=== PATIENT | male | born 1955 | race Hispanic/Latino ===

== ENCOUNTER 2017-09-22 04:19 | Emergency (ER) | payer OTHER ==
[2017-09-22 04:20] VITALS: BMI 20.7
[2017-09-22 05:07] LABS: BASO # 0.1 K/uL (0.0-0.2); BASO % 1.1 % (0.0-2.0); EOS # 0.2 K/uL (0.0-0.7); EOS % 3.7 % (0.0-4.0); HEMOGLOBIN 11.4 g/dL (12.0-18.0); LYMPH # 1.9 K/uL (1.0-4.3); LYMPH % 38.8 % (20.0-40.0); MEAN CORPUSCULAR HEMOGLOBIN 33.9 pg (27.0-31.0); MEAN CORPUSCULAR HGB CONC 34.6 g/dL (33.0-37.0); MEAN PLATELET VOLUME 8.4 fL (7.2-11.7); MONO # 0.8 K/uL (0.0-0.8); MONO % 16.5 % (0.0-10.0); NEUT % 39.9 % (50.0-75.0); RBC 3.37 Mil/uL (4.40-5.90); RED CELL DISTRIBUTION WIDTH 13.3 % (11.5-14.5); WHITE BLOOD COUNT 4.9 K/uL (4.8-10.8)
[2017-09-22 05:19] LABS: ALB/GLOB RATIO 1.1 (1.0-2.1); ALBUMIN 3.5 g/dL (3.5-5.0); ALT/SGPT 35 U/L (21-72); AST/SGOT 46 U/L (17-59); BLOOD UREA NITROGEN 10 mg/dL (9-20); CALCIUM 7.8 mg/dl (8.6-10.4); GFR AFRICAN-AMERICAN > 60; GFR NON-AFRICAN AMERICAN > 60; MAGNESIUM 1.7 mg/dL (1.6-2.3)
[2017-09-22 05:24] LABS: URINE BILIRUBIN NEGATIVE (NEGATIVE); URINE BLOOD NEGATIVE (NEGATIVE); URINE CLARITY Clear (Clear); URINE COLOR Straw (YELLOW); URINE GLUCOSE (UA) NORMAL (Normal); URINE LEUKOCYTE ESTERASE NEG Leu/uL (Negative); URINE NITRATE NEGATIVE (NEGATIVE); URINE PROTEIN NEGATIVE (NEGATIVE); URINE UROBILINOGEN NORMAL mg/dL (0.2-1.0)
[2017-09-22 05:39] LABS: BARBITURATES, UR NEGATIVE (NEGATIVE); BENZODIAZEPINES, UR NEGATIVE (NEGATIVE); OPIATES, UR NEGATIVE (NEGATIVE); PHENCYCLIDINE, UR NEGATIVE (NEGATIVE)
--- NOTE | 2017-09-22 06:18 | C.PDOC ---
History Of Present Illness <Luna Castro - Last Filed: 09/22/17 13:19> <Sydnee Null - Last Filed: 09/22/17 19:12> 61 years old patient presents to ED with complaints of having leg cramps. Pt states as he was mopping his home floor his legs started to cramp. Admits to drinking 5 beers today. Pt states he has been using a walker for about 7 months. Denies any other physical complaints. (Sydnee Null) <Luna Castro - Last Filed: 09/22/17 13:19> History Per: Patient History/Exam Limitations: no limitations Onset/Duration Of Symptoms: Hrs Current Symptoms Are (Timing): Still Present Suicide/Self Injury Attempted (Context): None Modifying Factor(s): Alcohol Associated Symptoms: denies: Anger, Agitation, Suicidal Thoughts, Suicidal Plan Involuntary Hold By: None Recent travel outside of the [place]: No <Sydnee Null - Last Filed: 09/22/17 19:12> Chief Complaint (Nursing): Lower Extremity Problem/Injury Past Medical History Reviewed: Historical Data, Nursing Documentation, Vital Signs - Medical History PMH: HTN Family History: States: Unknown Family Hx - Social History Hx Tobacco Use: No Hx Alcohol Use: Yes Hx Substance Use: No - Immunization History Hx Tetanus Toxoid Vaccination: Yes Hx Influenza Vaccination: Yes Hx Pneumococcal Vaccination: Yes <Sydnee Null - Last Filed: 09/22/17 19:12> Vital Signs: Last Vital Signs Temp 98.9 F 09/22/17 13:55 Pulse 67 09/22/17 13:55 Resp 18 09/22/17 13:55 BP 134/76 09/22/17 13:55 Pulse Ox 97 09/22/17 13:55 - [facility] Procedures COLONOSCOPY (04/03/15) ESOPHAGOGASTRODUODENOSCOPY [EGD] W/CLOSED BIOPSY (04/03/15) PACKED CELL TRANSFUSION (04/03/15) VACCINATION NEC (05/08/15) Review Of Systems Constitutional: Negative for: Fever Musculoskeletal: Positive for: Other (Leg cramping bilaterally) Neurological: Negative for: Weakness, Numbness Psych: Negative for: Suicidal ideation <Sydnee Null - Last Filed: 09/22/17 19:12> Physical Exam - Physical Exam Appears: Well, Non-toxic, Other (Slurred speech ) Skin: Warm, Dry, Other (No Organomegaly) Head: Atraumatic, Normacephalic Eye(s): bilateral: Normal Inspection Oral Mucosa: Dry Throat: No Erythema, No Exudate Neck: Supple Chest: Symmetrical, No Tenderness Cardiovascular: Rhythm Regular Respiratory: No Decreased Breath Sounds, No Accessory Muscle Use, No Rales, No Rhonchi, No Stridor, No Wheezing Gastrointestinal/Abdominal: Soft, No Tenderness Extremity: Normal ROM, No Tenderness, No Pedal Edema, No Swelling Extremity: Bilateral: Normal Color And Temperature, Normal ROM Pulses: Left Dorsalis Pedis: Normal, Right Dorsalis Pedis: Normal Neurological/Psych: Normal Cognition <Sydnee Null - Last Filed: 09/22/17 19:12> ED Course And Treatment - Laboratory Results Result Diagrams: 09/22/17 05:04 09/22/17 05:04 <Luna Castro - Last Filed: 09/22/17 13:19> - Laboratory Results Result Diagrams: 09/22/17 05:04 09/22/17 05:04 O2 Sat by Pulse Oximetry: 97 (RA) Pulse Ox Interpretation: Normal <Sydnee Null - Last Filed: 09/22/17 19:12> Progress <Luna Castro - Last Filed: 09/22/17 13:19> <Sydnee Null - Last Filed: 09/22/17 19:12> - Re-Evaluation Re-evaluation Note: 09/22/17 07:00 S/O FROM DR NULL PENDING SOBRIETY. 09/22/17 13:20 EATING WO DIFF. PT W CLEAR SPEECH AND THOUGHT, STEADY GAIT. AO3. NO S/S ACUTE INTOX. PT MED CLEAR FOR DC. (Luna Castro) Medical Decision Making <Luna Castro - Last Filed: 09/22/17 13:19> <Sydnee Null - Last Filed: 09/22/17 19:12> Medical Decision Making: Patient experiencing neuropathic pain from alcohol. (Sydnee Null) Disposition Counseled Patient/Family Regarding: Studies Performed, Diagnosis - Disposition Disposition Time: 13:20 <Luna Castro - Last Filed: 09/22/17 13:19> <Sydnee Null - Last Filed: 09/22/17 19:12> - Disposition Referrals: YOUR,PMD [Other] Disposition: HOME/ ROUTINE Condition: IMPROVED Instructions: Peripheral Neuropathy (ED), Alcohol Dependence (ED) Forms: [employer] (Japanese) Print Language: SALVADOREAN - Clinical Impression Clinical Impression: ETOH abuse, Paresthesia <Luna Castro - Last Filed: 09/22/17 13:19> - Scribe Statement The provider has reviewed the documentation as recorded by the Scribe <Sydnee Null - Last Filed: 09/22/17 19:12> - Scribe Statement Dwayne Huynh All medical record entries made by the Scribe were at my direction and personally dictated by me. I have reviewed the chart and agree that the record accurately reflects my personal performance of the history, physical exam, medical decision making, and the department course for this patient. I have also personally directed, reviewed, and agree with the discharge instructions and disposition. (Sydnee Null)
[2017-09-22 14:00] VITALS: BP 134/76; PULSE 67; RESP 18; TEMP 98.9; O2SAT 97
== END 2017-09-22 15:03 | disposition home or self-care (01) ==
LOC: C.ER 04:19
DX: F10.10 Alcohol abuse, uncomplicated (principal); R20.9 Unspecified disturbances of skin sensation; I10 Essential (primary) hypertension
CPT/HCPCS: 80053; 81001; 83735; 85025; 99285; G0480

== ENCOUNTER 2017-12-11 08:43 | Emergency (ER) | payer OTHER ==
[2017-12-11 08:44] VITALS: BMI 20.7
[2017-12-11 08:47] VITALS: RESP 18
--- NOTE | 2017-12-11 09:30 | C.PDOC ---
History Of Present Illness 62 y/o male brought to ED by EMS s/p fall at 2 am this morning with complaints of injury to left leg and arm. Patient states he got up from bed and was going to bathroom when "legs gave out" and sustained injury. Patient states last time this happened was 15 months ago and uses cane/walker for assistance at baseline. Patient was diagnosed with restless legs and is on medication, states he gets periodic spasms to back of right leg but denies spasm at time of injury. Patient states "I am feeling fine" and denies any other complaints at this time. Time Seen by Provider: 12/11/17 08:47 Chief Complaint (Nursing): Lower Extremity Problem/Injury History Per: Patient, EMS History/Exam Limitations: no limitations Onset/Duration Of Symptoms: Hrs Current Symptoms Are (Timing): Still Present Past Medical History Reviewed: Historical Data, Nursing Documentation, Vital Signs Vital Signs: Last Vital Signs Temp 98.2 F 12/11/17 13:17 Pulse 73 12/11/17 13:17 Resp 18 12/11/17 13:17 BP 125/79 12/11/17 13:17 Pulse Ox 99 12/11/17 13:17 - Medical History PMH: HTN Surgical History: No Surg Hx - [facility] Procedures COLONOSCOPY (04/03/15) ESOPHAGOGASTRODUODENOSCOPY [EGD] W/CLOSED BIOPSY (04/03/15) PACKED CELL TRANSFUSION (04/03/15) VACCINATION NEC (05/08/15) Family History: States: No Known Family Hx - Social History Hx Tobacco Use: No Hx Alcohol Use: Yes Hx Substance Use: No - Immunization History Hx Tetanus Toxoid Vaccination: Yes Hx Influenza Vaccination: Yes Hx Pneumococcal Vaccination: Yes Review Of Systems Constitutional: Negative for: Fever, Chills Eyes: Negative for: Vision Change Cardiovascular: Negative for: Chest Pain Respiratory: Negative for: Shortness of Breath Gastrointestinal: Negative for: Nausea, Vomiting Musculoskeletal: Positive for: Leg Pain Skin: Positive for: Bruising. Negative for: Rash Neurological: Negative for: Weakness, Numbness Physical Exam - Physical Exam Appears: Non-toxic, No Acute Distress Skin: Warm, Dry, No Rash, Ecchymosis (multiple areas on left knee, left elbow and left wrist) Head: Atraumatic, Normacephalic Eye(s): bilateral: PERRL, EOMI Oral Mucosa: Moist Neck: Normal ROM, Supple Cardiovascular: Rhythm Regular Respiratory: Normal Breath Sounds, No Rales, No Rhonchi, No Wheezing Gastrointestinal/Abdominal: Soft, No Tenderness, No Guarding, No Rebound Extremity: Capillary Refill (<2 seconds), No Deformity, Other (Abrasion noted to left lateral malleolus) Extremity: Bilateral: Normal ROM Pulses: Left Dorsalis Pedis: Normal, Right Dorsalis Pedis: Normal Neurological/Psych: Oriented x3, Normal Motor, Normal Sensation, Other (No focal deficits) Gait: With Assistance ED Course And Treatment - Laboratory Results Result Diagrams: 12/11/17 10:41 12/11/17 10:41 ECG: Interpreted By Me, Viewed By Me ECG Rhythm: Sinus Rhythm ECG Interpretation: Normal Rate From EC (BPM ) O2 Sat by Pulse Oximetry: 99 (RA) Pulse Ox Interpretation: Normal - Other Rad Left ankle X-Ray: Viewed By Me, Read By Radiologist Interpretation: IMPRESSION: No demonstrated fracture or dislocation. Progress - Re-Evaluation Re-evaluation Note: 12/11/17 14:07 AMBUL WO DIFF W CANE/WALKER D/W DR JACKSON AWARE OF ER FINDINGS WILL FU OFFICE - Data Reviewed Data Reviewed: Lab, Diagnostic imaging, Old records Medical Decision Making Medical Decision Making: Prior records reviewed: Patient seen at ED on 09/2017 for same symptoms. Patient has history of ETOH use Progress: Left wrist, Left ankle, Left Knee and Pelvis xray viewed by me no fracture or dislocation noted. Disposition Counseled Patient/Family Regarding: Studies Performed, Diagnosis, Need For Followup - Disposition Referrals: Paul Jackson MD [Staff Provider] - Disposition: HOME/ ROUTINE Disposition Time: 14:08 Condition: IMPROVED Instructions: Alcohol Abuse and Alcoholism (DC), Contusion (DC) Forms: [employer] (Albanian) - Clinical Impression Clinical Impression: Alcohol intoxication, Multiple contusions - Scribe Statement The provider has reviewed the documentation as recorded by the Chataibquincy Steele All medical record entries made by the Scribe were at my direction and personally dictated by me. I have reviewed the chart and agree that the record accurately reflects my personal performance of the history, physical exam, medical decision making, and the department course for this patient. I have also personally directed, reviewed, and agree with the discharge instructions and disposition.
--- NOTE | 2017-12-11 10:00 | RAD ---
PROCEDURE: Left Ankle Radiographs. HISTORY: TRAUMA COMPARISON: None FINDINGS: BONES: Osteopenia. No acute fracture. JOINTS: Degenerative changes. Ankle mortise maintained. Talar dome intact SOFT TISSUES: Normal. OTHER FINDINGS: None. IMPRESSION: No demonstrated fracture or dislocation.
--- NOTE | 2017-12-11 10:20 | RAD ---
PROCEDURE: Radiographs of the pelvis. HISTORY: TRAUMA COMPARISON: None. FINDINGS: BONES: Pelvic Bones: No acute fracture. Hips: Degenerative changes. JOINTS: Sacroiliac Joints: Unremarkable. Pubic Symphysis: Unremarkable. OTHER FINDINGS: None. IMPRESSION: No demonstrated acute fracture or dislocation.
--- NOTE | 2017-12-11 10:20 | RAD ---
PROCEDURE: Left Knee Radiographs. HISTORY: Pain. COMPARISON: None. FINDINGS: BONES: No acute fracture. JOINTS: Mild tricompartmental narrowing. JOINT EFFUSION: None. OTHER FINDINGS: None. IMPRESSION: No demonstrated fracture or dislocation. Mild degenerative changes.
--- NOTE | 2017-12-11 10:21 | RAD ---
PROCEDURE: Radiographs of the left elbow. HISTORY: TRAUMA COMPARISON: No prior. FINDINGS: BONES: No acute fracture. JOINTS: Degenerative changes. SOFT TISSUES: Normal. JOINT EFFUSION: None. OTHER FINDINGS: None IMPRESSION: No demonstrated fracture or dislocation.
--- NOTE | 2017-12-11 10:21 | RAD ---
PROCEDURE: Left Wrist Radiographs. HISTORY: TRAUMA COMPARISON: None. FINDINGS: BONES: No acute fracture. JOINTS: Degenerative changes. SOFT TISSUES: Normal. OTHER FINDINGS: None. IMPRESSION: No demonstrated fracture or dislocation. Degenerative changes.
--- NOTE | 2017-12-11 10:22 | RAD ---
PROCEDURE: CHEST RADIOGRAPH, 1 VIEW HISTORY: FALL COMPARISON: Chest radiograph dated 05/24/2015. FINDINGS: LUNGS: Clear. PLEURA: No pneumothorax or pleural fluid seen. CARDIOVASCULAR: Normal. OSSEOUS STRUCTURES: Old left humeral fracture. Unchanged. VISUALIZED UPPER ABDOMEN: Normal. OTHER FINDINGS: None. IMPRESSION: No active disease.
[2017-12-11 10:49] LABS: URINE BILIRUBIN NEGATIVE (NEGATIVE); URINE BLOOD NEGATIVE (NEGATIVE); URINE CLARITY Clear (Clear); URINE COLOR Straw (YELLOW); URINE GLUCOSE (UA) NORMAL (Normal); URINE LEUKOCYTE ESTERASE NEG Leu/uL (Negative); URINE PROTEIN NEGATIVE (NEGATIVE); URINE UROBILINOGEN NORMAL mg/dL (0.2-1.0)
[2017-12-11 11:11] LABS: MEAN CELL VOLUME 99.7 fL (80.0-94.0); MEAN CORPUSCULAR HEMOGLOBIN 34.5 pg (27.0-31.0); MEAN CORPUSCULAR HGB CONC 34.6 g/dL (33.0-37.0); MEAN PLATELET VOLUME 8.3 fL (7.2-11.7); RBC 3.2 Mil/uL (4.40-5.90)
[2017-12-11 11:21] LABS: BLOOD UREA NITROGEN 6 mg/dL (9-20); CALCIUM 8.4 mg/dl (8.6-10.4); GFR AFRICAN-AMERICAN > 60; GFR NON-AFRICAN AMERICAN > 60
--- NOTE | 2017-12-11 11:34 | CT ---
PROCEDURE: CT HEAD WITHOUT CONTRAST. HISTORY: FALL COMPARISON: CT head dated 04/03/2015. TECHNIQUE: Axial computed tomography images were obtained through the head/brain without intravenous contrast. Radiation dose: Total exam DLP = 878.4 mGy-cm. This CT exam was performed using one or more of the following dose reduction techniques: Automated exposure control, adjustment of the mA and/or kV according to patient size, and/or use of iterative reconstruction technique. FINDINGS: HEMORRHAGE: No intracranial hemorrhage. BRAIN: No mass effect or edema. Cerebral and cerebellar atrophy. Mild chronic microvascular ischemic changes. Old bilateral basal ganglia lacunar infarctions. VENTRICLES: Prominent. No hydrocephalus. CALVARIUM: Unremarkable. PARANASAL SINUSES: Unremarkable as visualized. No significant inflammatory changes. MASTOID AIR CELLS: Unremarkable as visualized. No inflammatory changes. OTHER FINDINGS: None. IMPRESSION: No acute intracranial pathology.
[2017-12-11 11:35] LABS: EOS # 0.1 K/uL (0.0-0.7); MONO # 0.7 K/uL (0.0-0.8); NEUT # 2.1 K/uL (1.8-7.0)
[2017-12-11 11:36] LABS: BASO # 0.1 K/uL (0.0-0.2)
[2017-12-11 17:14] VITALS: BP 128/68; PULSE 67; TEMP 98.4; O2SAT 97
--- NOTE | 2017-12-13 08:05 | CARD ---
APPROVED REPORT EKG Measurement Heart [id number] <Conclusion> Normal sinus rhythm Septal infarct, age undetermined Inferior infarct, age undetermined Prolonged QT Abnormal ECG
== END 2017-12-11 17:14 | disposition home or self-care (01) ==
LOC: C.ER 08:43
DX: S80.02XA Contusion of left knee, initial encounter (principal); S50.02XA Contusion of left elbow, initial encounter; S60.212A Contusion of left wrist, initial encounter; W01.0XXA Fall on same level from slipping, tripping and stumbling without subsequent striking against object, initial encounter; Y92.008 Other place in unspecified non-institutional (private) residence as the place of occurrence of the external cause; F10.129 Alcohol abuse with intoxication, unspecified; Y90.8 Blood alcohol level of 240 mg/100 ml or more
CPT/HCPCS: 70450; 71045; 72170; 73080; 73110; 73562; 73610; 80048; 81001; 84484; 85025; 99285; G0480

== ENCOUNTER 2017-12-20 11:15 | Inpatient (IN) | payer OTHER ==
[2017-12-20 11:26] VITALS: BMI 26.6
--- NOTE | 2017-12-20 12:42 | C.PDOC ---
History Of Present Illness 62-year-old male, presents to the emergency department with complaints of left hip pain s/p mechanical fall yesterday. Patient states he was dancing at the [employer] with his friends, when he fell and sustained injury to left hip. Pain worsens with movement and palpation. Denies any other complaints. No head injury, loss of consciousness or neck pain. Time Seen by Provider: 12/20/17 11:29 Chief Complaint (Nursing): Hip Pain History Per: Patient History/Exam Limitations: no limitations Past Medical History Reviewed: Historical Data, Nursing Documentation, Vital Signs Vital Signs: Last Vital Signs Temp 98.2 F 12/23/17 18:00 Pulse 84 12/23/17 15:20 Resp 20 12/23/17 15:20 BP 123/76 12/23/17 15:20 Pulse Ox 97 12/23/17 15:20 - Medical History PMH: HTN Denies: Chronic Kidney Disease - [facility] Procedures COLONOSCOPY (04/03/15) ESOPHAGOGASTRODUODENOSCOPY [EGD] W/CLOSED BIOPSY (04/03/15) PACKED CELL TRANSFUSION (04/03/15) VACCINATION NEC (05/08/15) Family History: States: No Known Family Hx - Social History Hx Tobacco Use: No Hx Alcohol Use: Yes Hx Substance Use: No - Immunization History Hx Tetanus Toxoid Vaccination: Yes Hx Influenza Vaccination: Yes Hx Pneumococcal Vaccination: Yes Review Of Systems Musculoskeletal: Positive for: Other (Left hip pain) Neurological: Negative for: Weakness, Numbness, Headache, Dizziness Physical Exam - Physical Exam Appears: Non-toxic, No Acute Distress Skin: Warm, Dry, No Rash Head: Atraumatic, Normacephalic Eye(s): bilateral: PERRL Oral Mucosa: Moist Lips: Normal Appearing Neck: Normal ROM, No Midline Cervical Tenderness, No Paracervical Tenderness, Supple Chest: Symmetrical, No Tenderness Cardiovascular: Rhythm Regular, No Murmur Respiratory: Normal Breath Sounds, No Accessory Muscle Use Gastrointestinal/Abdominal: Bowel Sounds (active), Soft, No Tenderness Back: No CVA Tenderness, No Vertebral Tenderness, No Paraspinal Tenderness Extremity: Tenderness, Capillary Refill (<2 seconds), No Swelling, Other (Left hip: tenderness to palpation. limited range of motion secondary to pain. ) Pulses: Left Femoral: Normal, Right Femoral: Normal, Left Dorsalis Pedis: Normal , Right Dorsalis Pedis: Normal Neurological/Psych: Oriented x3, Normal Speech, Normal Motor, Normal Sensation Gait: Unable To Assess ED Course And Treatment - Laboratory Results Result Diagrams: 12/23/17 07:24 12/23/17 07:24 O2 Sat by Pulse Oximetry: 100 (RA) Pulse Ox Interpretation: Normal Medical Decision Making Medical Decision Makin:[address] Velasquez; he is requests ortho wire communications engineer for evaluation and recommends admission to Dr Khan's service. The case was discussed with Dr. Durham who will be Ortho Consult on the patient, requesting CT scan order. Also requesting MRI of the lower ext. Disposition - Disposition Disposition: HOSPITALIZED Disposition Time: 13:44 Condition: STABLE - Clinical Impression Clinical Impression: Hip fracture - Scribe Statement The provider has reviewed the documentation as recorded by the Scribe (Andrzej Arroyo) All medical record entries made by the Scribe were at my direction and personally dictated by me. I have reviewed the chart and agree that the record accurately reflects my personal performance of the history, physical exam, medical decision making, and the department course for this patient. I have also personally directed, reviewed, and agree with the discharge instructions and disposition.
[2017-12-20] MEDS ORDERED: Morphine 4 MG/ML VIAL ONE (12:57)
--- NOTE | 2017-12-20 13:05 | RAD ---
PROCEDURE: Left Femur Radiographs. HISTORY: leg injury COMPARISON: None. TECHNIQUE: AP and Lateral Radiographs of the left femur. FINDINGS: FEMUR: There is an acute impacted transcervical fracture. Bone alignment is normal. There is mild diffuse bone demineralization. SOFT TISSUES: Normal. OTHER FINDINGS: None. IMPRESSION: Acute impacted transcervical fracture in the left femur.
--- NOTE | 2017-12-20 13:06 | RAD ---
PROCEDURE: Left Hip X-ray Radiographs. HISTORY: hip injury COMPARISON: None. FINDINGS: BONES: The pelvic ring is intact. There is an acute impacted transcervical fracture in the left femur. Bone alignment is normal. There is diffuse bone demineralization. JOINTS: Normal. SOFT TISSUES: Normal. OTHER FINDINGS: None. IMPRESSION: Acute impacted transcervical fracture in the left femur.
--- NOTE | 2017-12-20 13:49 | RAD ---
PROCEDURE: CHEST RADIOGRAPH, 1 VIEW HISTORY: pre op COMPARISON: Chest radiograph dated 12/11/2017. FINDINGS: LUNGS: 9 mm left upper lobe nodule, present on the prior exam, but not present on preceding chest radiograph dated 05/24/2015. PLEURA: No pneumothorax or pleural fluid seen. CARDIOVASCULAR: Normal. OSSEOUS STRUCTURES: Old posterior right 6th rib fracture. Unchanged. VISUALIZED UPPER ABDOMEN: Normal. OTHER FINDINGS: None. IMPRESSION: 9 mm left upper lobe nodule, present on the prior exam, but not present on preceding chest radiograph dated 05/24/2015. CT scan of the chest is recommended for further evaluation. No focal consolidation or pleural effusion.
[2017-12-20 15:08] LABS: BASO # 0.1 K/uL (0.0-0.2); BASO % 0.9 % (0.0-2.0); LYMPH % 17.5 % (20.0-40.0); MEAN CELL VOLUME 99.7 fL (80.0-94.0); MEAN CORPUSCULAR HEMOGLOBIN 34.7 pg (27.0-31.0); MEAN CORPUSCULAR HGB CONC 34.8 g/dL (33.0-37.0); MONO # 0.8 K/uL (0.0-0.8); MONO % 14.3 % (0.0-10.0); NEUT % 67.3 % (50.0-75.0); NRBC % 0.1 % (0.0-2.0); RBC 3.17 Mil/uL (4.40-5.90); RED CELL DISTRIBUTION WIDTH 14.5 % (11.5-14.5); WHITE BLOOD COUNT 5.9 K/uL (4.8-10.8)
[2017-12-20 15:10] LABS: ALBUMIN 3.7 g/dL (3.5-5.0); ALT/SGPT 47 U/L (21-72); AST/SGOT 82 U/L (17-59); BLOOD UREA NITROGEN 9 mg/dL (9-20); CALCIUM 8.7 mg/dl (8.6-10.4); GFR AFRICAN-AMERICAN > 60; GFR NON-AFRICAN AMERICAN > 60
[2017-12-20 15:11] LABS: INR 1.1; PROTHROMBIN TIME 11.8 SECONDS (9.7-12.2)
--- NOTE | 2017-12-20 16:02 | CT ---
PROCEDURE: CT of the Left Hip. HISTORY: hip/femur fracture COMPARISON: None available. TECHNIQUE: Contiguous axial images of the left hip were obtained. Coronal and sagittal reformats were generated. This CT exam was performed using one or more of the following dose reduction techniques: Automated exposure control, adjustment of the mA and/or kV according to patient size, and/or use of iterative reconstruction technique. FINDINGS: BONES: There is diffuse bone demineralization. There is an acute comminuted impacted left intertrochanteric fracture with 7 mm distraction of fracture fragments. Bone alignment is normal. LEFT HIP JOINT: The hip joint space is preserved. No dislocation. No degenerative changes. SOFT TISSUES: There is mild periarticular edema. IMPRESSION: Acute comminuted impacted left intertrochanteric fracture with 7 mm distraction of fracture fragments. Mild periarticular edema.
[2017-12-20] MEDS: Oxycodone/Acetaminophen 5/325 mg Tab PO PRN (16:35)
--- NOTE | 2017-12-20 17:35 | CP.PCM.CON ---
History of Present Illness - History of Present Illness History of Present Illness: 62 year old with hx ETOH use multiple visits with [facility] and falls, now with afall found with hip fx, sinus, no CHF no clinically, carries acceptable risk for cardiac complication from an urgent surgery Review of Systems - Review of Systems Systems not reviewed;Unavailable: Unstable Vital Signs - Constitutional Constitutional: Anorexia, Weakness - EENT Eyes: absent: Discharge Ears: absent: Ear Discharge, Dizziness Nose/Mouth/Throat: absent: Epistaxis, Bleeding Gums - Cardiovascular Cardiovascular: absent: Acrocyanosis, Chest Pain, Diaphoresis, Leg Edema, Palpitations, Pedal Edema, Syncope - Respiratory Respiratory: absent: Cough, Dyspnea, Hemoptysis - Gastrointestinal Gastrointestinal: absent: Abdominal Pain, Diarrhea, Nausea, Vomiting - Genitourinary Genitourinary: absent: Change in Urinary Stream Past Patient History - Infectious Disease Hx of Infectious Diseases: None - Tetanus Immunizations Tetanus Immunization: Unknown - Past Medical History & Family History Past Medical History?: Yes - Past Social History Smoking Status: Former Smoker - CARDIAC Hx Cardiac Disorders: Yes Hx Hypertension: Yes - PULMONARY Hx Respiratory Disorders: Yes Other/Comment: hx pleural effusion - NEUROLOGICAL Hx Neurological Disorder: No - HEENT Hx HEENT Problems: Yes Other/Comment: wear reading eyeglasses - RENAL Hx Chronic Kidney Disease: No - ENDOCRINE/METABOLIC Hx Endocrine Disorders: No - HEMATOLOGICAL/ONCOLOGICAL Other/Comment: liver failure ----pt states he last drank beers 3 weeks ago - INTEGUMENTARY Hx Dermatological Problems: No - MUSCULOSKELETAL/RHEUMATOLOGICAL Hx Musculoskeletal Disorders: Yes Hx Falls: Yes (multiple) - GASTROINTESTINAL Hx Gastrointestinal Disorders: Yes Hx Liver Failure: Yes Other/Comment: alcohol abuse - GENITOURINARY/GYNECOLOGICAL Hx Genitourinary Disorders: No - PSYCHIATRIC Hx Substance Use: No - SURGICAL HISTORY Hx Surgeries: No Other/Comment: PT DENIES PER PATIENT - ANESTHESIA Hx Anesthesia: No Hx Anesthesia Reactions: No Meds Allergies/Adverse Reactions: Allergies Allergy/AdvReac Type Severity Reaction Status Date / Time No Known Allergies Allergy Verified 12/20/17 11:26 - Medications Medications: Current Medications Enoxaparin Sodium (Lovenox) 30 mg SC Q12 LORIE Oxycodone/Acetaminophen (Percocet 5/325 Mg Tab) 1 tab PO Q4H PRN PRN Reason: Pain, moderate (4-7) Stop: 12/23/17 13:29 Last Admin: 12/20/17 16:35 Dose: 1 tab Physical Exam - Constitutional Appears: Non-toxic - Head Exam Head Exam: ATRAUMATIC - Eye Exam Eye Exam: EOMI - ENT Exam ENT Exam: Mucous Membranes Moist - Neck Exam Neck exam: Negative for: Lymphadenopathy, Thyromegaly - Respiratory Exam Respiratory Exam: Clear to Auscultation Bilateral. absent: Rales - Cardiovascular Exam Cardiovascular Exam: REGULAR RHYTHM, Systolic Murmur Additional comments: holosystolic - GI/Abdominal Exam GI & Abdominal Exam: Normal Bowel Sounds. absent: Organomegaly - Rectal Exam Rectal Exam: Deferred - Extremities Exam Extremities exam: Positive for: normal capillary refill. Negative for: calf tenderness - Neurological Exam Neurological exam: Alert, Oriented x3 - Psychiatric Exam Psychiatric exam: Normal Affect - Skin Skin Exam: Dry Results - Vital Signs Recent Vital Signs: Last Vital Signs Temp 99.9 F H 12/20/17 16:28 Pulse 88 12/20/17 16:28 Resp 20 12/20/17 16:28 BP 169/84 H 12/20/17 16:28 Pulse Ox 100 12/20/17 16:28 - Labs Result Diagrams: 12/24/17 11:12 12/24/17 11:12 Labs: Laboratory Results - last 24 hr 12/20/17 12/20/17 12/20/17 14:47 14:47 14:47 WBC 5.9 RBC 3.17 L Hgb 11.0 L Hct 31.6 L MCV 99.7 H MCH 34.7 H MCHC 34.8 RDW 14.5 Plt Count 102 L D MPV 9.0 Neut % (Auto) 67.3 Lymph % (Auto) 17.5 L Leslie % (Auto) 14.3 H Eos % (Auto) 0.0 Baso % (Auto) 0.9 Neut # (Auto) 4.0 Lymph # (Auto) 1.0 Leslie # (Auto) 0.8 Eos # (Auto) 0.0 Baso # (Auto) 0.1 Differential Comment PT 11.8 INR 1.1 APTT 35 H Sodium 147 Potassium 4.3 Chloride 111 H Carbon Dioxide 17 L Anion Gap 24 H BUN 9 Creatinine 0.8 Est GFR ( Amer) > 60 Est GFR (Non-Af Amer) > 60 Random Glucose 92 Calcium 8.7 Total Bilirubin 2.0 H AST 82 H D ALT 47 Alkaline Phosphatase 187 H Total Protein 7.6 Albumin 3.7 Globulin 3.9 Albumin/Globulin Ratio 1.0 Assessment & Plan (1) Hip fracture Status: Acute Comment: acceptable risk for cardiac complication from surgery (2) Alcohol intoxication Status: Acute
[2017-12-20] MEDS ORDERED: HYDROmorphone 1 mg/ml ISec IVP STA (18:13)
[2017-12-20] MEDS: Enoxaparin 30 mg Syringe SC SCH (21:24)
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
[2017-12-21] MEDS: Oxycodone/Acetaminophen 5/325 mg Tab PO PRN ×2 (00:09→21:49)
[2017-12-21] MEDS: Albuterol-Ipratrop 3 mg / 0.5 (3 ml) UD INH SCH ×4 (01:11→19:37)
[2017-12-21] MEDS: Enoxaparin 30 mg Syringe SC SCH (10:12)
[2017-12-21] MEDS ORDERED: Sodium Chloride 0.45% 1,000 ML IV SCH (15:00)
[2017-12-21] MEDS: Sodium Chloride 0.45% 1,000 ML IV SCH (15:00)
--- NOTE | 2017-12-21 23:09 | CP.PCM.PN ---
Subjective - Date & Time of Evaluation Date of Evaluation: 12/21/17 Time of Evaluation: 17:45 - Subjective Subjective: Pt seen and examined , is improving, H and H is stable, complains of hip pain Objective - Vital Signs/Intake and Output Vital Signs (last 24 hours): Temp Pulse Resp BP Pulse Ox 98.8 F 106 H 20 155/90 H 97 12/21/17 15:00 12/21/17 16:22 12/21/17 15:00 12/21/17 15:00 12/21/17 15:00 Intake and Output: 12/21/17 12/22/17 18:59 06:59 Output Total 250 500 Balance -250 -500 - Medications Medications: Current Medications Albuterol/Ipratropium (Duoneb 3 Mg/0.5 Mg (3 Ml) Ud) 3 ml INH RQ6 [facility] Last Admin: 12/21/17 19:37 Dose: 3 ml Sodium Chloride (Sodium Chloride 0.45%) 1,000 mls @ 60 mls/hr IV .[id number] [facility] Last Admin: 12/21/17 15:00 Dose: 60 mls/hr Losartan Potassium (Cozaar) 50 mg PO DAILY [facility] Last Admin: 12/21/17 10:12 Dose: 50 mg Metoprolol Succinate (Toprol Xl) 25 mg PO DAILY [facility] Oxycodone/Acetaminophen (Percocet 5/325 Mg Tab) 1 tab PO Q4H PRN PRN Reason: Pain, moderate (4-7) Stop: 12/23/17 13:29 Last Admin: 12/21/17 21:49 Dose: 1 tab Rosuvastatin Calcium (Crestor) 5 mg PO HS [facility] Last Admin: 12/21/17 21:47 Dose: 5 mg - Labs Labs: 12/20/17 14:47 12/20/17 14:47 PT 11.8 SECONDS (9.7-12.2) 12/20/17 14:47 INR 1.1 12/20/17 14:47 APTT 35 SECONDS (21-34) H 12/20/17 14:47 - Constitutional Appears: No Acute Distress - Head Exam Head Exam: ATRAUMATIC, NORMAL INSPECTION, NORMOCEPHALIC - Eye Exam Eye Exam: EOMI, Normal appearance, PERRL Pupil Exam: NORMAL ACCOMODATION, PERRL - Respiratory Exam Respiratory Exam: Clear to Ausculation Bilateral, NORMAL BREATHING PATTERN - Cardiovascular Exam Cardiovascular Exam: REGULAR RHYTHM, +S1, +S2. absent: Murmur - GI/Abdominal Exam GI & Abdominal Exam: Soft, Normal Bowel Sounds. absent: Tenderness Assessment and Plan (1) Hip fracture Status: Acute (2) Accidental fall Status: Acute (3) Alcohol intoxication Status: Acute
[2017-12-22] MEDS: Albuterol-Ipratrop 3 mg / 0.5 (3 ml) UD INH SCH ×4 (02:20→19:33)
[2017-12-22 04:40] LABS: GRANULAR CAST 2 /lpf (0-1); SQUAMOUS EPITHIAL < 1 /hpf (0-5); URINE BACTERIA RARE (<OCC); URINE BILIRUBIN NEGATIVE (NEGATIVE); URINE BLOOD 2+ (NEGATIVE); URINE CLARITY Clear (Clear); URINE COLOR Amber (YELLOW); URINE GLUCOSE (UA) NORMAL (Normal); URINE LEUKOCYTE ESTERASE 3+ Leu/uL (Negative); URINE PROTEIN 2+ mg/dL (NEGATIVE)
[2017-12-22] MEDS: Sodium Chloride 0.45% 1,000 ML IV SCH (05:56)
[2017-12-22 07:55] LABS: HEMOGLOBIN 9.8 g/dL (12.0-18.0); MEAN CELL VOLUME 100.1 fL (80.0-94.0); MEAN CORPUSCULAR HEMOGLOBIN 35.4 pg (27.0-31.0); MEAN CORPUSCULAR HGB CONC 35.3 g/dL (33.0-37.0); MEAN PLATELET VOLUME 8.8 fL (7.2-11.7); RBC 2.76 Mil/uL (4.40-5.90); RED CELL DISTRIBUTION WIDTH 13.9 % (11.5-14.5)
[2017-12-22] MEDS ORDERED: Propofol 10 mg/ml Inj (20 ML) ONE (07:55)
[2017-12-22] MEDS ORDERED: Succinylcholine Chloride 20 mg/ml Syr (5 ml) IV ONE (08:00)
[2017-12-22 08:01] LABS: WHITE BLOOD COUNT 9.4 K/uL (4.8-10.8)
[2017-12-22 08:02] LABS: BLOOD UREA NITROGEN 13 mg/dL (9-20); CALCIUM 7.9 mg/dl (8.6-10.4); GFR AFRICAN-AMERICAN > 60; GFR NON-AFRICAN AMERICAN > 60
[2017-12-22] MEDS ORDERED: Lidocaine Hydrochloride 5 ML INJ ONE (08:02)
[2017-12-22] MEDS ORDERED: Rocuronium 10 mg/ml (5 ml) ONE (08:04)
[2017-12-22] MEDS ORDERED: ePHEDrine 50 mg/ml Inj ONE (08:05)
[2017-12-22] MEDS ORDERED: Phenylephrine 10 mg/ml Inj ONE (08:05)
[2017-12-22] MEDS ORDERED: ceFAZolin 1 gm in NS 2 GM/200 ML BAG IVPB ONE (08:20)
[2017-12-22] MEDS ORDERED: Lactated Ringer's 1,000 ML IV ONE ×2 (08:30→10:31)
[2017-12-22] MEDS ORDERED: Etomidate 20 mg/10ml Inj IV ONE (08:39)
[2017-12-22] MEDS ORDERED: Sodium Chloride 0.9% 1,000 ML IV ONE (09:15)
[2017-12-22] MEDS ORDERED: Neostigmine Methylsulfate 3mg/3ml Syringe IV ONE (10:20)
[2017-12-22] MEDS ORDERED: Dexamethasone 4 mg/1 ml IVP PRN (10:47)
[2017-12-22] MEDS ORDERED: Oxycodone/Acetaminophen 5/325 mg Tab PO PRN (10:56)
[2017-12-22] MEDS ORDERED: Lactated Ringer's 1,000 ML IV SCH (11:00)
[2017-12-22] MEDS: HYDROmorphone 0.5 mg/0.5 ml ISec IVP PRN ×2 (11:45→12:00)
[2017-12-22] MEDS: ceFAZolin 2 GM in Sodium Chloride 0.9% 100 ML IVPB SCH ×2 (13:07→21:19)
[2017-12-22] MEDS: Metoprolol Succinate 25 mg XL Tab PO SCH (13:09)
--- NOTE | 2017-12-22 17:06 | CP.PCM.PN ---
Subjective - Date & Time of Evaluation Date of Evaluation: 12/22/17 Time of Evaluation: 15:00 - Subjective Subjective: no CP had surgery did well Objective - Vital Signs/Intake and Output Vital Signs (last 24 hours): Temp Pulse Resp BP Pulse Ox 97.7 F 98 H 12 153/76 H 99 12/22/17 12:20 12/22/17 12:30 12/22/17 12:30 12/22/17 12:30 12/22/17 12:30 Intake and Output: 12/22/17 12/22/17 06:59 18:59 Intake Total 1280 280 Output Total 1300 500 Balance -20 -220 - Medications Medications: Current Medications Albuterol/Ipratropium (Duoneb 3 Mg/0.5 Mg (3 Ml) Ud) 3 ml INH RQ6 [facility] Last Admin: 12/22/17 13:10 Dose: Not Given Enoxaparin Sodium (Lovenox) 40 mg SC DAILY [facility] Sodium Chloride (Sodium Chloride 0.45%) 1,000 mls @ 60 mls/hr IV .[id number] [facility] Last Admin: 12/22/17 05:56 Dose: 60 mls/hr Lactated Ringer's (Lactated Ringer's) 1,000 mls @ 100 mls/hr IV .Q10H [facility] Cefazolin Sodium 2 gm/ Sodium (Chloride) 100 mls @ 100 mls/hr IVPB Q8H [facility] PRN Reason: Protocol Last Admin: 12/22/17 13:07 Dose: Not Given Losartan Potassium (Cozaar) 50 mg PO DAILY [facility] Last Admin: 12/22/17 13:06 Dose: Not Given Metoprolol Succinate (Toprol Xl) 25 mg PO DAILY [facility] Last Admin: 12/22/17 13:09 Dose: Not Given Oxycodone/Acetaminophen (Percocet 5/325 Mg Tab) 1 tab PO Q4H PRN PRN Reason: Pain, moderate (4-7) Stop: 12/23/17 13:29 Oxycodone/Acetaminophen (Percocet 5/325 Mg Tab) 2 tab PO Q4H PRN PRN Reason: Pain, severe (8-10) Stop: 12/25/17 10:57 Rosuvastatin Calcium (Crestor) 5 mg PO [facility] Last Admin: 12/21/17 21:47 Dose: 5 mg - Labs Labs: 12/22/17 07:32 12/22/17 07:32 PT 11.8 SECONDS (9.7-12.2) 12/20/17 14:47 INR 1.1 12/20/17 14:47 APTT 35 SECONDS (21-34) H 12/20/17 14:47 - Constitutional Appears: Non-toxic - Head Exam Head Exam: ATRAUMATIC - Eye Exam Eye Exam: EOMI - ENT Exam ENT Exam: Mucous Membranes Moist - Neck Exam Neck Exam: absent: Lymphadenopathy, Thyromegaly - Respiratory Exam Respiratory Exam: Clear to Ausculation Bilateral. absent: Rales - Cardiovascular Exam Cardiovascular Exam: REGULAR RHYTHM, Murmur - Rectal Exam Rectal Exam: Deferred - Extremities Exam Extremities Exam: Normal Capillary Refill. absent: Calf Tenderness - Neurological Exam Neurological Exam: Alert, Oriented x3 - Psychiatric Exam Psychiatric exam: Normal Mood - Skin Skin Exam: Dry Assessment and Plan (1) Hip fracture Status: Acute (2) Alcohol intoxication Status: Acute
--- NOTE | 2017-12-22 19:12 | RAD ---
PROCEDURE: Intraoperative Fluoroscopy. HISTORY: LT HIP FX ORIF FINDINGS: Fluoroscopic assistance was provided for left hip fracture internal fixation/ORIF. Please refer to the operative report from VI King DR, MD. Total exam fluoroscopic time 275.2 seconds
--- NOTE | 2017-12-22 22:34 | CP.PCM.PN ---
Subjective - Date & Time of Evaluation Date of Evaluation: 12/22/17 Time of Evaluation: 18:00 - Subjective Subjective: PT IS SEEN AND EXAMINED is for OR today less short of breath medically stable Objective - Vital Signs/Intake and Output Vital Signs (last 24 hours): Temp Pulse Resp BP Pulse Ox 100.1 F H 99 H 20 130/85 97 12/22/17 15:00 12/22/17 15:00 12/22/17 15:00 12/22/17 15:00 12/22/17 15:00 Intake and Output: 12/22/17 12/23/17 18:59 06:59 Intake Total 280 Output Total 500 Balance -220 - Medications Medications: Current Medications Albuterol/Ipratropium (Duoneb 3 Mg/0.5 Mg (3 Ml) Ud) 3 ml INH RQ6 [facility] Last Admin: 12/22/17 19:33 Dose: 3 ml Enoxaparin Sodium (Lovenox) 40 mg SC DAILY [facility] Sodium Chloride (Sodium Chloride 0.45%) 1,000 mls @ 60 mls/hr IV .[id number] [facility] Last Admin: 12/22/17 05:56 Dose: 60 mls/hr Lactated Ringer's (Lactated Ringer's) 1,000 mls @ 100 mls/hr IV .Q10H [facility] Last Admin: 12/22/17 21:19 Dose: Not Given Cefazolin Sodium 2 gm/ Sodium (Chloride) 100 mls @ 100 mls/hr IVPB Q8H [facility] PRN Reason: Protocol Last Admin: 12/22/17 21:19 Dose: 100 mls/hr Losartan Potassium (Cozaar) 50 mg PO DAILY [facility] Last Admin: 12/22/17 13:06 Dose: Not Given Metoprolol Succinate (Toprol Xl) 25 mg PO DAILY [facility] Last Admin: 12/22/17 13:09 Dose: Not Given Oxycodone/Acetaminophen (Percocet 5/325 Mg Tab) 1 tab PO Q4H PRN PRN Reason: Pain, moderate (4-7) Stop: 12/23/17 13:29 Oxycodone/Acetaminophen (Percocet 5/325 Mg Tab) 2 tab PO Q4H PRN PRN Reason: Pain, severe (8-10) Stop: 12/25/17 10:57 Rosuvastatin Calcium (Crestor) 5 mg PO HS [facility] Last Admin: 12/22/17 21:31 Dose: 5 mg - Labs Labs: 12/22/17 07:32 12/22/17 07:32 PT 11.8 SECONDS (9.7-12.2) 12/20/17 14:47 INR 1.1 12/20/17 14:47 APTT 35 SECONDS (21-34) H 12/20/17 14:47 - Constitutional Appears: No Acute Distress - Head Exam Head Exam: ATRAUMATIC, NORMAL INSPECTION, NORMOCEPHALIC - Eye Exam Eye Exam: EOMI, Normal appearance, PERRL Pupil Exam: NORMAL ACCOMODATION, PERRL - Respiratory Exam Respiratory Exam: Clear to Ausculation Bilateral, NORMAL BREATHING PATTERN - Cardiovascular Exam Cardiovascular Exam: REGULAR RHYTHM, +S1, +S2. absent: Murmur - GI/Abdominal Exam GI & Abdominal Exam: Soft, Normal Bowel Sounds. absent: Tenderness Assessment and Plan (1) Hip fracture Status: Acute (2) Accidental fall Status: Acute (3) Alcohol intoxication Status: Acute
[2017-12-23] MEDS: Oxycodone/Acetaminophen 5/325 mg Tab PO PRN ×2 (00:51→10:40)
[2017-12-23] MEDS: Albuterol-Ipratrop 3 mg / 0.5 (3 ml) UD INH SCH ×4 (02:58→19:00)
[2017-12-23] MEDS: ceFAZolin 2 GM in Sodium Chloride 0.9% 100 ML IVPB SCH ×3 (04:30→19:32)
[2017-12-23] MEDS: Sodium Chloride 0.45% 1,000 ML IV SCH ×3 (06:18→17:30)
[2017-12-23 07:36] LABS: HEMOGLOBIN 7.9 g/dL (12.0-18.0); MEAN CORPUSCULAR HEMOGLOBIN 34.3 pg (27.0-31.0); MEAN CORPUSCULAR HGB CONC 35.2 g/dL (33.0-37.0); RBC 2.31 Mil/uL (4.40-5.90); RED CELL DISTRIBUTION WIDTH 15.7 % (11.5-14.5); WHITE BLOOD COUNT 8.6 K/uL (4.8-10.8)
[2017-12-23 07:45] LABS: MEAN CELL VOLUME 97.5 fL (80.0-94.0)
[2017-12-23 07:52] LABS: BLOOD UREA NITROGEN 16 mg/dL (9-20); CALCIUM 7.3 mg/dl (8.6-10.4); GFR AFRICAN-AMERICAN > 60; GFR NON-AFRICAN AMERICAN > 60
[2017-12-23] MEDS: Metoprolol Succinate 25 mg XL Tab PO SCH (10:40)
[2017-12-23] MEDS: Enoxaparin 40 mg Syringe SC SCH (10:42)
[2017-12-23] MEDS ORDERED: Potassium Chloride 20 mEq ER Tab PO ONE (11:15)
--- NOTE | 2017-12-23 11:23 | CP.PCM.PN ---
Subjective - Date & Time of Evaluation Date of Evaluation: 12/23/17 Time of Evaluation: 11:23 - Subjective Subjective: DISCUSSED WITH DEONNA ZAMORANO PA-C PLAN FOR THE PT. PER DEONNA PT HAS GROSS HEMATURIA IN STEPHENSON BAG AND RECOMMENDS IT BE EVALUATED KARO. PT IS ON LOVENOX FOR DVT PROPHYLAXIS. NOTED HGB DROP EVEN AFTER TRANSFUSION GIVEN POST-OP. REVIEW OF PREVIOUS RN NOTES SHOWS HEMATURIA STARTED AFTER STEPHENSON INSERTED. LEAD SYSTEMS ANALYST SAW PT IMMEDIATELY. PT SITTING IN BED, COMFORTABLE, DENIES PAIN OR DISTRESS. PT DENIES H/O UROLOGY ISSUES. + DARK, RED BLOOD IN STEPHENSON CATH BAG WITH CLOTS. NO SUPRAPUBIC TENDERNESS OR DISTENTION; NO BLOOD FROM PENIS OR URETHRA NOTED. PLAN: HOLD LOVENOX UNTIL HEMTURIA RESOLVES. DR. SEGURA CONSULTED---SAW PT AT BEDSIDE WITH LEAD SYSTEMS ANALYST; RECOMMENDING FLOMAX 0.4 MG PO QD IN PREPARATION OF STEPHENSON REMOVAL; AGREES THAT HEMATURIA LIKELY DUE TO TRAUMA OF STEPHENSON INSERTED AND BASELINE LOW PLATELETS. 1 UNIT PRBC TO BE TRANSFUSED TODAY; PRE-MEDICATE WITH TYLENOL. ALL DISCUSSED WITH DR. STEWARD AND PRIMARY RN POLI. NO FURTHER ORDERS. Objective - Vital Signs/Intake and Output Vital Signs (last 24 hours): Temp Pulse Resp BP Pulse Ox 99.2 F 97 H 18 129/67 97 12/23/17 07:20 12/23/17 07:20 12/23/17 07:20 12/23/17 07:20 12/23/17 07:20 Intake and Output: 12/23/17 12/23/17 06:59 18:59 Intake Total 1660 Output Total 500 Balance 1160 - Medications Medications: Current Medications Acetaminophen (Tylenol 325mg Tab) 650 mg PO Q4 PRN PRN Reason: Temperature Last Admin: 12/23/17 04:35 Dose: 650 mg Albuterol/Ipratropium (Duoneb 3 Mg/0.5 Mg (3 Ml) Ud) 3 ml INH RQ6 [facility] Last Admin: 12/23/17 07:22 Dose: 3 ml Artificial Tears (Artificial Tears) 0 ml OU QID PRN PRN Reason: Dry eyes Enoxaparin Sodium (Lovenox) 40 mg SC DAILY [facility] Last Admin: 12/23/17 10:42 Dose: Not Given Sodium Chloride (Sodium Chloride 0.45%) 1,000 mls @ 60 mls/hr IV .[id number] [facility] Last Admin: 12/23/17 06:19 Dose: 60 mls/hr Lactated Ringer's (Lactated Ringer's) 1,000 mls @ 100 mls/hr IV .Q10H [facility] Last Admin: 12/22/17 21:19 Dose: Not Given Cefazolin Sodium 2 gm/ Sodium (Chloride) 100 mls @ 100 mls/hr IVPB Q8H [facility] PRN Reason: Protocol Last Admin: 12/23/17 04:30 Dose: 100 mls/hr Losartan Potassium (Cozaar) 50 mg PO DAILY [facility] Last Admin: 12/23/17 10:40 Dose: 50 mg Metoprolol Succinate (Toprol Xl) 25 mg PO DAILY [facility] Last Admin: 12/23/17 10:40 Dose: 25 mg Oxycodone/Acetaminophen (Percocet 5/325 Mg Tab) 1 tab PO Q4H PRN PRN Reason: Pain, moderate (4-7) Stop: 12/23/17 13:29 Last Admin: 12/23/17 10:40 Dose: 1 tab Oxycodone/Acetaminophen (Percocet 5/325 Mg Tab) 2 tab PO Q4H PRN PRN Reason: Pain, severe (8-10) Stop: 12/25/17 10:57 Potassium Chloride (K-Dur 20 Meq Er Tab) 40 meq PO ONCE ONE Stop: 12/23/17 11:16 Rosuvastatin Calcium (Crestor) 5 mg PO HS [facility] Last Admin: 12/22/17 21:31 Dose: 5 mg - Labs Labs: 12/23/17 07:24 12/23/17 07:24 PT 11.8 SECONDS (9.7-12.2) 12/20/17 14:47 INR 1.1 12/20/17 14:47 APTT 35 SECONDS (21-34) H 12/20/17 14:47
--- NOTE | 2017-12-23 12:10 | CP.PCM.PN ---
Subjective - Date & Time of Evaluation Date of Evaluation: 12/23/17 Time of Evaluation: 12:07 - Subjective Subjective: Patient states he feels much better since before the surgery. Denies CP/SOB/ dizziness. Objective - Vital Signs/Intake and Output Vital Signs (last 24 hours): Temp Pulse Resp BP Pulse Ox 98.4 F 96 H 16 119/67 97 12/23/17 11:57 12/23/17 11:57 12/23/17 11:57 12/23/17 11:57 12/23/17 07:20 Intake and Output: 12/23/17 12/23/17 06:59 18:59 Intake Total 1660 0 Output Total 500 Balance 1160 0 - Medications Medications: Current Medications Acetaminophen (Tylenol 325mg Tab) 650 mg PO Q4 PRN PRN Reason: Temperature Last Admin: 12/23/17 11:51 Dose: 650 mg Albuterol/Ipratropium (Duoneb 3 Mg/0.5 Mg (3 Ml) Ud) 3 ml INH RQ6 [facility] Last Admin: 12/23/17 07:22 Dose: 3 ml Artificial Tears (Artificial Tears) 0 ml OU QID PRN PRN Reason: Dry eyes Enoxaparin Sodium (Lovenox) 40 mg SC DAILY [facility] Last Admin: 12/23/17 10:42 Dose: Not Given Sodium Chloride (Sodium Chloride 0.45%) 1,000 mls @ 60 mls/hr IV .[id number] [facility] Last Admin: 12/23/17 06:19 Dose: 60 mls/hr Cefazolin Sodium 2 gm/ Sodium (Chloride) 100 mls @ 100 mls/hr IVPB Q8H [facility] PRN Reason: Protocol Last Admin: 12/23/17 04:30 Dose: 100 mls/hr Losartan Potassium (Cozaar) 50 mg PO DAILY [facility] Last Admin: 12/23/17 10:40 Dose: 50 mg Metoprolol Succinate (Toprol Xl) 25 mg PO DAILY [facility] Last Admin: 12/23/17 10:40 Dose: 25 mg Oxycodone/Acetaminophen (Percocet 5/325 Mg Tab) 1 tab PO Q4H PRN PRN Reason: Pain, moderate (4-7) Stop: 12/23/17 13:29 Last Admin: 12/23/17 10:40 Dose: 1 tab Oxycodone/Acetaminophen (Percocet 5/325 Mg Tab) 2 tab PO Q4H PRN PRN Reason: Pain, severe (8-10) Stop: 12/25/17 10:57 Rosuvastatin Calcium (Crestor) 5 mg PO HS [facility] Last Admin: 12/22/17 21:31 Dose: 5 mg - Labs Labs: 12/23/17 07:24 12/23/17 07:24 PT 11.8 SECONDS (9.7-12.2) 12/20/17 14:47 INR 1.1 12/20/17 14:47 APTT 35 SECONDS (21-34) H 12/20/17 14:47 - Extremities Exam Additional comments: Left hip: mild swelling, soft, dressings intact, dry, no erythema +ROM ankle/ toes, sensation intact +DP/PT pulses calves soft NT neg homans montanez: harshil blood Assessment and Plan (1) Closed intertrochanteric fracture of left femur Assessment & Plan: POD#1 s/p left hip IM nailing -PT/OT -d/c planning to rehab VTE proph montanez not removed due to harshil blood, Dr. Khan aware, recommend urology consult PACU record notes urine was blood tinged, pre op urine was normal color UTI noted on admission u/a, ucx pending, tx as per Dr. Khan monitor h/h, repeat today d/w Dr. Pradhan, agrees with above Status: Acute
[2017-12-23] MEDS: Aritificial Tears (15ml) OU PRN (13:38)
--- NOTE | 2017-12-23 20:41 | CARD ---
APPROVED REPORT EKG Measurement Heart [id number] CT [id number] <Conclusion> Normal sinus rhythm Prolonged QT Abnormal ECG
--- NOTE | 2017-12-23 23:24 | CP.PCM.PN ---
Subjective - Date & Time of Evaluation Date of Evaluation: 12/23/17 Time of Evaluation: 19:00 - Subjective Subjective: Patient states he feels much better since before the surgery. Denies CP/SOB/ dizziness Objective - Vital Signs/Intake and Output Vital Signs (last 24 hours): Temp Pulse Resp BP Pulse Ox 98.9 F 84 20 123/76 100 12/23/17 21:58 12/23/17 15:20 12/23/17 15:20 12/23/17 15:20 12/23/17 19:54 Intake and Output: 12/23/17 12/24/17 18:59 06:59 Intake Total 325 840 Output Total 1300 1300 Balance -975 -460 - Medications Medications: Current Medications Acetaminophen (Tylenol 325mg Tab) 650 mg PO Q4 PRN PRN Reason: Temperature Last Admin: 12/23/17 11:51 Dose: 650 mg Albuterol/Ipratropium (Duoneb 3 Mg/0.5 Mg (3 Ml) Ud) 3 ml INH RQ6 [facility] Last Admin: 12/23/17 19:00 Dose: Not Given Artificial Tears (Artificial Tears) 0 ml OU QID PRN PRN Reason: Dry eyes Last Admin: 12/23/17 13:38 Dose: 2 drop Enoxaparin Sodium (Lovenox) 40 mg SC DAILY [facility] Last Admin: 12/23/17 10:42 Dose: Not Given Sodium Chloride (Sodium Chloride 0.45%) 1,000 mls @ 60 mls/hr IV .[id number] [facility] Last Admin: 12/23/17 17:30 Dose: Not Given Cefazolin Sodium 2 gm/ Sodium (Chloride) 100 mls @ 100 mls/hr IVPB Q8H [facility] PRN Reason: Protocol Last Admin: 12/23/17 19:32 Dose: 100 mls/hr Losartan Potassium (Cozaar) 50 mg PO DAILY [facility] Last Admin: 12/23/17 10:40 Dose: 50 mg Metoprolol Succinate (Toprol Xl) 25 mg PO DAILY [facility] Last Admin: 12/23/17 10:40 Dose: 25 mg Oxycodone/Acetaminophen (Percocet 5/325 Mg Tab) 2 tab PO Q4H PRN PRN Reason: Pain, severe (8-10) Stop: 12/25/17 10:57 Rosuvastatin Calcium (Crestor) 5 mg PO HS [facility] Last Admin: 12/23/17 21:56 Dose: 5 mg Tamsulosin HCl (Flomax) 0.4 mg PO DAILY [facility] Last Admin: 12/23/17 13:37 Dose: 0.4 mg - Labs Labs: 12/23/17 07:24 12/23/17 07:24 PT 11.8 SECONDS (9.7-12.2) 12/20/17 14:47 INR 1.1 12/20/17 14:47 APTT 35 SECONDS (21-34) H 12/20/17 14:47 - Constitutional Appears: No Acute Distress - Head Exam Head Exam: ATRAUMATIC, NORMAL INSPECTION, NORMOCEPHALIC - Eye Exam Eye Exam: EOMI, Normal appearance, PERRL Pupil Exam: NORMAL ACCOMODATION, PERRL - Respiratory Exam Respiratory Exam: Clear to Ausculation Bilateral, NORMAL BREATHING PATTERN - Cardiovascular Exam Cardiovascular Exam: REGULAR RHYTHM, +S1, +S2. absent: Murmur - GI/Abdominal Exam GI & Abdominal Exam: Soft, Normal Bowel Sounds. absent: Tenderness Assessment and Plan (1) Hip fracture Assessment & Plan: s/p OR Status: Acute (2) Accidental fall Status: Acute (3) Alcohol intoxication Status: Acute
--- NOTE | 2017-12-23 23:42 | CP.PCM.PN ---
Subjective - Date & Time of Evaluation Date of Evaluation: 12/23/17 Time of Evaluation: 12:00 - Subjective Subjective: on pt pain improved, stable post op Objective - Vital Signs/Intake and Output Vital Signs (last 24 hours): Temp Pulse Resp BP Pulse Ox 98.9 F 84 20 123/76 100 12/23/17 21:58 12/23/17 15:20 12/23/17 15:20 12/23/17 15:20 12/23/17 19:54 Intake and Output: 12/23/17 12/24/17 18:59 06:59 Intake Total 325 840 Output Total 1300 1300 Balance -975 -460 - Medications Medications: Current Medications Acetaminophen (Tylenol 325mg Tab) 650 mg PO Q4 PRN PRN Reason: Temperature Last Admin: 12/23/17 11:51 Dose: 650 mg Albuterol/Ipratropium (Duoneb 3 Mg/0.5 Mg (3 Ml) Ud) 3 ml INH RQ6 [facility] Last Admin: 12/23/17 19:00 Dose: Not Given Artificial Tears (Artificial Tears) 0 ml OU QID PRN PRN Reason: Dry eyes Last Admin: 12/23/17 13:38 Dose: 2 drop Enoxaparin Sodium (Lovenox) 40 mg SC DAILY [facility] Last Admin: 12/23/17 10:42 Dose: Not Given Sodium Chloride (Sodium Chloride 0.45%) 1,000 mls @ 60 mls/hr IV .[id number] [facility] Last Admin: 12/23/17 17:30 Dose: Not Given Cefazolin Sodium 2 gm/ Sodium (Chloride) 100 mls @ 100 mls/hr IVPB Q8H [facility] PRN Reason: Protocol Last Admin: 12/23/17 19:32 Dose: 100 mls/hr Losartan Potassium (Cozaar) 50 mg PO DAILY [facility] Last Admin: 12/23/17 10:40 Dose: 50 mg Metoprolol Succinate (Toprol Xl) 25 mg PO DAILY [facility] Last Admin: 12/23/17 10:40 Dose: 25 mg Oxycodone/Acetaminophen (Percocet 5/325 Mg Tab) 2 tab PO Q4H PRN PRN Reason: Pain, severe (8-10) Stop: 12/25/17 10:57 Rosuvastatin Calcium (Crestor) 5 mg PO HS [facility] Last Admin: 12/23/17 21:56 Dose: 5 mg Tamsulosin HCl (Flomax) 0.4 mg PO DAILY [facility] Last Admin: 12/23/17 13:37 Dose: 0.4 mg - Labs Labs: 12/23/17 07:24 12/23/17 07:24 PT 11.8 SECONDS (9.7-12.2) 12/20/17 14:47 INR 1.1 12/20/17 14:47 APTT 35 SECONDS (21-34) H 12/20/17 14:47 - Constitutional Appears: Non-toxic - Head Exam Head Exam: ATRAUMATIC - Eye Exam Eye Exam: EOMI - ENT Exam ENT Exam: Mucous Membranes Moist - Neck Exam Neck Exam: absent: Lymphadenopathy, Thyromegaly - Respiratory Exam Respiratory Exam: Clear to Ausculation Bilateral. absent: Rales - Cardiovascular Exam Cardiovascular Exam: REGULAR RHYTHM, Murmur - GI/Abdominal Exam GI & Abdominal Exam: Normal Bowel Sounds. absent: Organomegaly - Rectal Exam Rectal Exam: Deferred - Extremities Exam Extremities Exam: Normal Capillary Refill. absent: Calf Tenderness - Neurological Exam Neurological Exam: Alert, Normal Gait - Psychiatric Exam Psychiatric exam: Normal Mood - Skin Skin Exam: Dry Assessment and Plan (1) Hip fracture Status: Acute (2) Alcohol intoxication Status: Acute
[2017-12-24] MEDS: Albuterol-Ipratrop 3 mg / 0.5 (3 ml) UD INH SCH ×4 (01:08→20:42)
[2017-12-24] MEDS: ceFAZolin 2 GM in Sodium Chloride 0.9% 100 ML IVPB SCH (03:38)
[2017-12-24] MEDS: Sodium Chloride 0.45% 1,000 ML IV SCH ×2 (06:32→10:52)
--- NOTE | 2017-12-24 07:26 | CON ---
DATE: HISTORY: The patient is a 62-year-old white gentleman who was admitted because of femur fracture. The patient has low platelet count, and he was on Lovenox. Wynne catheter inserted because the patient was unable to urinate and has gross hematuria. It was dark, now it is light red, but the patient was given platelets, and the Lovenox was discontinued. The patient has history of prostatism, no dysuria, no urgency, and no frequency. Nocturia x2. PHYSICAL EXAMINATION: EXTREMITIES: The patient cannot move his legs because of the fracture. ABDOMEN: Soft, no flank tenderness. No kidney palpable. No suprapubic fullness. GENITOURINARY: Testes in the scrotum. Penis within normal limits. A #16 Wynne indwelling catheter. Urine draining well. The Wynne adjusted so it will not be pulling on the prostate and patient will be followed. Discontinue Lovenox and monitor platelets. IMPRESSION: Hematuria due to low platelet and most likely trauma from the Wynne. I will follow him. Roshan Hogue MD
--- NOTE | 2017-12-24 08:56 | CP.PCM.PN ---
Subjective - Date & Time of Evaluation Date of Evaluation: 12/24/17 Time of Evaluation: 08:54 - Subjective Subjective: Patient currently calm, per RN overnight patient was agitated and tried to get out of bed. Denies CP/sob Objective - Vital Signs/Intake and Output Vital Signs (last 24 hours): Temp Pulse Resp BP Pulse Ox 98.2 F 74 20 113/70 96 12/24/17 07:15 12/24/17 07:15 12/24/17 07:15 12/24/17 07:15 12/24/17 07:15 Intake and Output: 12/24/17 12/24/17 06:59 18:59 Intake Total 1720 Output Total 2900 Balance -1180 - Medications Medications: Current Medications Acetaminophen (Tylenol 325mg Tab) 650 mg PO Q4 PRN PRN Reason: Temperature Last Admin: 12/23/17 11:51 Dose: 650 mg Albuterol/Ipratropium (Duoneb 3 Mg/0.5 Mg (3 Ml) Ud) 3 ml INH RQ6 [facility] Last Admin: 12/24/17 07:43 Dose: Not Given Artificial Tears (Artificial Tears) 0 ml OU QID PRN PRN Reason: Dry eyes Last Admin: 12/23/17 13:38 Dose: 2 drop Enoxaparin Sodium (Lovenox) 40 mg SC DAILY [facility] Last Admin: 12/23/17 10:42 Dose: Not Given Sodium Chloride (Sodium Chloride 0.45%) 1,000 mls @ 60 mls/hr IV .[id number] [facility] Last Admin: 12/24/17 06:32 Dose: 60 mls/hr Cefazolin Sodium 2 gm/ Sodium (Chloride) 100 mls @ 100 mls/hr IVPB Q8H [facility] PRN Reason: Protocol Last Admin: 12/24/17 03:38 Dose: 100 mls/hr Losartan Potassium (Cozaar) 50 mg PO DAILY [facility] Last Admin: 12/23/17 10:40 Dose: 50 mg Metoprolol Succinate (Toprol Xl) 25 mg PO DAILY [facility] Last Admin: 12/23/17 10:40 Dose: 25 mg Oxycodone/Acetaminophen (Percocet 5/325 Mg Tab) 2 tab PO Q4H PRN PRN Reason: Pain, severe (8-10) Stop: 12/25/17 10:57 Last Admin: 12/24/17 03:35 Dose: 2 tab Rosuvastatin Calcium (Crestor) 5 mg PO HS [facility] Last Admin: 12/23/17 21:56 Dose: 5 mg Tamsulosin HCl (Flomax) 0.4 mg PO DAILY [facility] Last Admin: 12/23/17 13:37 Dose: 0.4 mg - Labs Labs: 12/23/17 07:24 12/23/17 07:24 PT 11.8 SECONDS (9.7-12.2) 12/20/17 14:47 INR 1.1 12/20/17 14:47 APTT 35 SECONDS (21-34) H 12/20/17 14:47 - Exam Additional comments: montanez in tube is normal yellow at this time. In bag urine is only blood tinged. Much improved from yesterday - Extremities Exam Additional comments: left thigh: soft, mild swelling, no erythema, calves soft Nt neg homans, venodynes applied, sensation intact +DP/PT pulses Assessment and Plan (1) Closed intertrochanteric fracture of left femur Assessment & Plan: POD#2 s/p left hip IM nailing -PT/OT -d/c planning to rehab VTE proph, SCDs at all times, recommend resuming lovenox as soon as possible after hematuria resolved recommend d/c montanez as soon as possible, treatment as per urology UTI on admission, awaiting cx, defer to medical team awaiting post transfusion labs orthopedically stable d/w Dr. Pradhan, agrees with above Status: Acute
[2017-12-24] MEDS: Metoprolol Succinate 25 mg XL Tab PO SCH (09:51)
[2017-12-24 11:35] LABS: MEAN CORPUSCULAR HEMOGLOBIN 33.3 pg (27.0-31.0); MEAN CORPUSCULAR HGB CONC 35.2 g/dL (33.0-37.0); MEAN PLATELET VOLUME 7.8 fL (7.2-11.7); RBC 2.97 Mil/uL (4.40-5.90); WHITE BLOOD COUNT 8.7 K/uL (4.8-10.8)
[2017-12-24 11:39] LABS: HEMOGLOBIN 9.9 g/dL (12.0-18.0); MEAN CELL VOLUME 94.6 fL (80.0-94.0)
[2017-12-24 11:47] LABS: BLOOD UREA NITROGEN 15 mg/dL (9-20); CALCIUM 7.9 mg/dl (8.6-10.4); GFR AFRICAN-AMERICAN > 60; GFR NON-AFRICAN AMERICAN > 60
[2017-12-24] MEDS ORDERED: Potassium Chloride 20 mEq ER Tab PO ONE (15:42)
--- NOTE | 2017-12-24 18:58 | CP.PCM.PN ---
Subjective - Date & Time of Evaluation Date of Evaluation: 12/24/17 Time of Evaluation: 12:00 - Subjective Subjective: agitated, confused, ? DT's , hydration Objective - Vital Signs/Intake and Output Vital Signs (last 24 hours): Temp Pulse Resp BP Pulse Ox 98.1 F 89 20 154/91 H 95 12/24/17 18:34 12/24/17 18:34 12/24/17 18:34 12/24/17 18:34 12/24/17 18:34 Intake and Output: 12/24/17 12/24/17 06:59 18:59 Intake Total 1720 960 Output Total 2900 600 Balance -1180 360 - Medications Medications: Current Medications Acetaminophen (Tylenol 325mg Tab) 650 mg PO Q4 PRN PRN Reason: Pain, moderate (4-7) Last Admin: 12/24/17 12:58 Dose: 650 mg Albuterol/Ipratropium (Duoneb 3 Mg/0.5 Mg (3 Ml) Ud) 3 ml INH RQ6 [facility] Last Admin: 12/24/17 13:23 Dose: Not Given Artificial Tears (Artificial Tears) 0 ml OU QID PRN PRN Reason: Dry eyes Last Admin: 12/23/17 13:38 Dose: 2 drop Enoxaparin Sodium (Lovenox) 40 mg SC DAILY [facility] Last Admin: 12/23/17 10:42 Dose: Not Given Ceftriaxone Sodium 1 gm/ (Sodium Chloride) 100 mls @ 100 mls/hr IVPB DAILY [facility] PRN Reason: Protocol Last Admin: 12/24/17 17:50 Dose: 100 mls/hr Losartan Potassium (Cozaar) 50 mg PO DAILY [facility] Last Admin: 12/24/17 09:51 Dose: 50 mg Metoprolol Succinate (Toprol Xl) 25 mg PO DAILY [facility] Last Admin: 12/24/17 09:51 Dose: 25 mg Oxycodone/Acetaminophen (Percocet 5/325 Mg Tab) 2 tab PO Q4H PRN PRN Reason: Pain, severe (8-10) Stop: 12/25/17 10:57 Last Admin: 12/24/17 03:35 Dose: 2 tab Rosuvastatin Calcium (Crestor) 5 mg PO HS [facility] Last Admin: 12/23/17 21:56 Dose: 5 mg Tamsulosin HCl (Flomax) 0.4 mg PO DAILY [facility] Last Admin: 12/24/17 09:51 Dose: 0.4 mg - Labs Labs: 12/24/17 11:12 12/24/17 11:12 PT 11.8 SECONDS (9.7-12.2) 12/20/17 14:47 INR 1.1 12/20/17 14:47 APTT 35 SECONDS (21-34) H 12/20/17 14:47 - Constitutional Appears: Non-toxic - Head Exam Head Exam: ATRAUMATIC - Eye Exam Eye Exam: EOMI - ENT Exam ENT Exam: Mucous Membranes Moist - Neck Exam Neck Exam: absent: Lymphadenopathy, Thyromegaly - Respiratory Exam Respiratory Exam: Clear to Ausculation Bilateral. absent: Rales, Wheezes - Cardiovascular Exam Cardiovascular Exam: REGULAR RHYTHM, Murmur - GI/Abdominal Exam GI & Abdominal Exam: Normal Bowel Sounds. absent: Organomegaly - Rectal Exam Rectal Exam: Deferred - Extremities Exam Extremities Exam: Normal Capillary Refill. absent: Calf Tenderness - Neurological Exam Neurological Exam: Alert, Awake - Psychiatric Exam Psychiatric exam: Normal Mood - Skin Skin Exam: Dry Assessment and Plan (1) Hip fracture Status: Acute (2) Alcohol intoxication Status: Acute
[2017-12-24] MEDS: Sodium Chloride 0.9% 1,000 ML IV SCH (19:08)
--- NOTE | 2017-12-24 23:34 | CP.PCM.PN ---
Subjective - Date & Time of Evaluation Date of Evaluation: 12/24/17 Time of Evaluation: 18:00 - Subjective Subjective: Pt seen and examined, agitated, confused, is post op recovering from surgery, H and H is stable Objective - Vital Signs/Intake and Output Vital Signs (last 24 hours): Temp Pulse Resp BP Pulse Ox 98.1 F 89 20 154/91 H 95 12/24/17 18:34 12/24/17 18:34 12/24/17 18:34 12/24/17 18:34 12/24/17 18:34 Intake and Output: 12/24/17 12/25/17 18:59 06:59 Intake Total 960 870 Output Total 600 450 Balance 360 420 - Medications Medications: Current Medications Acetaminophen (Tylenol 325mg Tab) 650 mg PO Q4 PRN PRN Reason: Pain, moderate (4-7) Last Admin: 12/24/17 12:58 Dose: 650 mg Albuterol/Ipratropium (Duoneb 3 Mg/0.5 Mg (3 Ml) Ud) 3 ml INH RQ6 [facility] Last Admin: 12/24/17 20:42 Dose: Not Given Artificial Tears (Artificial Tears) 0 ml OU QID PRN PRN Reason: Dry eyes Last Admin: 12/23/17 13:38 Dose: 2 drop Enoxaparin Sodium (Lovenox) 40 mg SC DAILY [facility] Last Admin: 12/23/17 10:42 Dose: Not Given Ceftriaxone Sodium 1 gm/ (Sodium Chloride) 100 mls @ 100 mls/hr IVPB DAILY [facility] PRN Reason: Protocol Last Admin: 12/24/17 17:50 Dose: 100 mls/hr Sodium Chloride (Sodium Chloride 0.9%) 1,000 mls @ 100 mls/hr IV .Q10H [facility] Last Admin: 12/24/17 19:08 Dose: 100 mls/hr Losartan Potassium (Cozaar) 50 mg PO DAILY [facility] Last Admin: 12/24/17 09:51 Dose: 50 mg Metoprolol Succinate (Toprol Xl) 25 mg PO DAILY [facility] Last Admin: 12/24/17 09:51 Dose: 25 mg Oxycodone/Acetaminophen (Percocet 5/325 Mg Tab) 2 tab PO Q4H PRN PRN Reason: Pain, severe (8-10) Stop: 12/25/17 10:57 Last Admin: 12/24/17 03:35 Dose: 2 tab Rosuvastatin Calcium (Crestor) 5 mg PO HS [facility] Last Admin: 12/24/17 21:20 Dose: 5 mg Tamsulosin HCl (Flomax) 0.4 mg PO DAILY [facility] Last Admin: 12/24/17 09:51 Dose: 0.4 mg - Labs Labs: 12/24/17 11:12 12/24/17 11:12 PT 11.8 SECONDS (9.7-12.2) 12/20/17 14:47 INR 1.1 12/20/17 14:47 APTT 35 SECONDS (21-34) H 12/20/17 14:47 - Constitutional Appears: No Acute Distress - Head Exam Head Exam: ATRAUMATIC, NORMAL INSPECTION, NORMOCEPHALIC - Eye Exam Eye Exam: EOMI, Normal appearance, PERRL Pupil Exam: NORMAL ACCOMODATION, PERRL - Respiratory Exam Respiratory Exam: Clear to Ausculation Bilateral, NORMAL BREATHING PATTERN - Cardiovascular Exam Cardiovascular Exam: REGULAR RHYTHM, +S1, +S2. absent: Murmur - GI/Abdominal Exam GI & Abdominal Exam: Soft, Normal Bowel Sounds. absent: Tenderness Assessment and Plan (1) Hip fracture Assessment & Plan: Physical therapy Rehab Status: Acute (2) Accidental fall Status: Acute (3) Alcohol intoxication Status: Acute
[2017-12-25 00:52] LABS: URINE BILIRUBIN NEGATIVE (NEGATIVE); URINE BLOOD 3+ (NEGATIVE); URINE CLARITY Hazy (Clear); URINE COLOR Amber (YELLOW); URINE GLUCOSE (UA) NORMAL (Normal); URINE LEUKOCYTE ESTERASE TRACE Leu/uL (Negative); URINE PROTEIN 1+ mg/dL (NEGATIVE)
[2017-12-25] MEDS: Albuterol-Ipratrop 3 mg / 0.5 (3 ml) UD INH SCH ×4 (01:09→19:05)
[2017-12-25] MEDS: Sodium Chloride 0.9% 1,000 ML IV SCH ×2 (04:30→21:08)
[2017-12-25 07:26] LABS: HEMOGLOBIN 9.1 g/dL (12.0-18.0); MEAN CELL VOLUME 94.8 fL (80.0-94.0); MEAN CORPUSCULAR HEMOGLOBIN 33.3 pg (27.0-31.0); MEAN CORPUSCULAR HGB CONC 35.1 g/dL (33.0-37.0); MEAN PLATELET VOLUME 7.5 fL (7.2-11.7); RBC 2.72 Mil/uL (4.40-5.90); RED CELL DISTRIBUTION WIDTH 18.4 % (11.5-14.5); WHITE BLOOD COUNT 7.7 K/uL (4.8-10.8)
--- NOTE | 2017-12-25 09:15 | CP.PCM.PN ---
Subjective - Date & Time of Evaluation Date of Evaluation: 12/25/17 Time of Evaluation: 09:13 - Subjective Subjective: Patient states pain is controlled, saying it feels better. Patient is calm and cooperative today. Objective - Vital Signs/Intake and Output Vital Signs (last 24 hours): Temp Pulse Resp BP Pulse Ox 98.7 F 86 20 164/76 H 97 12/25/17 07:35 12/25/17 07:35 12/25/17 07:35 12/25/17 07:35 12/25/17 07:35 Intake and Output: 12/25/17 12/25/17 06:59 18:59 Intake Total 870 Output Total 1450 Balance -580 - Medications Medications: Current Medications Acetaminophen (Tylenol 325mg Tab) 650 mg PO Q4 PRN PRN Reason: Pain, moderate (4-7) Last Admin: 12/24/17 12:58 Dose: 650 mg Albuterol/Ipratropium (Duoneb 3 Mg/0.5 Mg (3 Ml) Ud) 3 ml INH RQ6 [facility] Last Admin: 12/25/17 07:44 Dose: Not Given Artificial Tears (Artificial Tears) 0 ml OU QID PRN PRN Reason: Dry eyes Last Admin: 12/23/17 13:38 Dose: 2 drop Enoxaparin Sodium (Lovenox) 40 mg SC DAILY [facility] Last Admin: 12/23/17 10:42 Dose: Not Given Ceftriaxone Sodium 1 gm/ (Sodium Chloride) 100 mls @ 100 mls/hr IVPB DAILY [facility] PRN Reason: Protocol Last Admin: 12/24/17 17:50 Dose: 100 mls/hr Sodium Chloride (Sodium Chloride 0.9%) 1,000 mls @ 100 mls/hr IV .Q10H [facility] Last Admin: 12/25/17 04:30 Dose: 100 mls/hr Losartan Potassium (Cozaar) 50 mg PO DAILY [facility] Last Admin: 12/24/17 09:51 Dose: 50 mg Metoprolol Succinate (Toprol Xl) 25 mg PO DAILY [facility] Last Admin: 12/24/17 09:51 Dose: 25 mg Oxycodone/Acetaminophen (Percocet 5/325 Mg Tab) 2 tab PO Q4H PRN PRN Reason: Pain, severe (8-10) Stop: 12/25/17 10:57 Last Admin: 12/24/17 03:35 Dose: 2 tab Rosuvastatin Calcium (Crestor) 5 mg PO HS [facility] Last Admin: 12/24/17 21:20 Dose: 5 mg Tamsulosin HCl (Flomax) 0.4 mg PO DAILY [facility] Last Admin: 12/24/17 09:51 Dose: 0.4 mg - Labs Labs: 12/25/17 07:16 12/24/17 11:12 PT 11.8 SECONDS (9.7-12.2) 12/20/17 14:47 INR 1.1 12/20/17 14:47 APTT 35 SECONDS (21-34) H 12/20/17 14:47 - Extremities Exam Additional comments: left thigh: soft, mild swelling, no erythema, calves soft Nt neg homans, venodynes applied, sensation intact +DP/PT pulses Assessment and Plan (1) Closed intertrochanteric fracture of left femur Assessment & Plan: POD#3 s/p left hip IM nailing -PT/OT -d/c planning to rehab VTE proph, SCDs at all times, recommend resuming lovenox as soon as possible after hematuria resolved recommend d/c montanez as soon as possible, treatment as per urology UTI on admission, awaiting cx, defer to medical team labs reviewed orthopedically stable d/w Dr. Pradhan, agrees with above Status: Acute
[2017-12-25] MEDS: Metoprolol Succinate 25 mg XL Tab PO SCH (10:54)
--- NOTE | 2017-12-25 16:00 | CT ---
PROCEDURE: CT Abdomen and Pelvis without intravenous contrast HISTORY: HEMATURIA COMPARISON: 04/04/2015 TECHNIQUE: Without contrast.. Contrast Dose: 0 Radiation dose: Total exam DLP = Total exam DLP = 676.80 mGy-cm. This CT exam was performed using one or more of the following dose reduction techniques: Automated exposure control, adjustment of the mA and/or kV according to patient size, and/or use of iterative reconstruction technique. FINDINGS: LOWER THORAX: Right lower lobe linear pleural-based scar/atelectasis. No infiltrate/ effusion. Nodular calcification is seen along the right diaphragmatic pleural surface common nonspecific. No other calcified pleural plaque noted at lung bases. Nevertheless, consider asbestos related pleural disease. This is unchanged from prior CT examination. LIVER: Nodular contour. Consistent with hepatic cirrhosis. No mass. No biliary ductal dilatation. Normal size. GALLBLADDER AND BILE DUCTS: Cholelithiasis. Mild mural thickening, nonspecific. No pericholecystic fluid. PANCREAS: Unremarkable. No gross lesion or ductal dilatation. SPLEEN: Unremarkable. ADRENALS: Unremarkable. No mass. KIDNEYS AND URETERS: Diffuse bilateral medullary calcification suspicious for medullary sponge kidney. Please correlate. Nonspecific mild right perinephric fluid. Stable perinephric stranding bilaterally. No renal mass or hydronephrosis. VASCULATURE: Unremarkable. No aortic aneurysm. BOWEL: Unremarkable. No obstruction. No gross mural thickening. APPENDIX: Unremarkable. Normal appendix. PERITONEUM: No ascites. Mild nonspecific presacral edema. . LYMPH NODES: Unremarkable. No enlarged lymph nodes. BLADDER: Decompressed around Wynne catheter balloon. REPRODUCTIVE: Radiation seed implants in prostate bed. BONES: Diffuse sclerotic metastases in the spine and ribs. New since prior. Mild compression deformity of T12 and L1 vertebrae, minimally increased compared to prior CT examination. No acute fracture identified. OTHER FINDINGS: None. IMPRESSION: Sclerotic bony metastases consistent with prostatic neoplasm. Hepatic cirrhosis. Cholelithiasis with nonspecific mural thickening. 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
--- NOTE | 2017-12-25 18:33 | CP.PCM.PN ---
Subjective - Date & Time of Evaluation Date of Evaluation: 12/25/17 Time of Evaluation: 14:00 - Subjective Subjective: more alert after hydration, seen by ROSI, on PT walking Objective - Vital Signs/Intake and Output Vital Signs (last 24 hours): Temp Pulse Resp BP Pulse Ox 101 F H 74 20 144/76 97 12/25/17 17:18 12/25/17 15:35 12/25/17 15:35 12/25/17 15:35 12/25/17 15:35 Intake and Output: 12/25/17 12/25/17 06:59 18:59 Intake Total 1770 1280 Output Total 1450 850 Balance 320 430 - Medications Medications: Current Medications Acetaminophen (Tylenol 325mg Tab) 650 mg PO Q4 PRN PRN Reason: Pain, moderate (4-7) Last Admin: 12/25/17 17:18 Dose: 650 mg Albuterol/Ipratropium (Duoneb 3 Mg/0.5 Mg (3 Ml) Ud) 3 ml INH RQ6 [facility] Last Admin: 12/25/17 13:10 Dose: Not Given Artificial Tears (Artificial Tears) 0 ml OU QID PRN PRN Reason: Dry eyes Last Admin: 12/23/17 13:38 Dose: 2 drop Enoxaparin Sodium (Lovenox) 40 mg SC DAILY [facility] Last Admin: 12/23/17 10:42 Dose: Not Given Ceftriaxone Sodium 1 gm/ (Sodium Chloride) 100 mls @ 100 mls/hr IVPB DAILY [facility] PRN Reason: Protocol Last Admin: 12/25/17 10:54 Dose: 100 mls/hr Sodium Chloride (Sodium Chloride 0.9%) 1,000 mls @ 100 mls/hr IV .Q10H [facility] Last Admin: 12/25/17 04:30 Dose: 100 mls/hr Lorazepam (Ativan) 1 mg IVP Q6H PRN PRN Reason: Anxiety Losartan Potassium (Cozaar) 50 mg PO DAILY [facility] Last Admin: 12/25/17 10:54 Dose: 50 mg Metoprolol Succinate (Toprol Xl) 25 mg PO DAILY [facility] Last Admin: 12/25/17 10:54 Dose: 25 mg Multivitamins (Hexavitamin) 1 tab PO DAILY [facility] Rosuvastatin Calcium (Crestor) 5 mg PO HS [facility] Last Admin: 12/24/17 21:20 Dose: 5 mg Tamsulosin HCl (Flomax) 0.4 mg PO DAILY [facility] Last Admin: 12/25/17 10:54 Dose: 0.4 mg Thiamine HCl (Vitamin B1 Tab) 100 mg PO BID [facility] Last Admin: 12/25/17 17:19 Dose: 100 mg - Labs Labs: 12/25/17 07:16 12/24/17 11:12 PT 11.8 SECONDS (9.7-12.2) 12/20/17 14:47 INR 1.1 12/20/17 14:47 APTT 35 SECONDS (21-34) H 12/20/17 14:47 - Constitutional Appears: Non-toxic - Head Exam Head Exam: ATRAUMATIC - Eye Exam Eye Exam: EOMI - ENT Exam ENT Exam: Mucous Membranes Moist - Neck Exam Neck Exam: absent: Lymphadenopathy, Thyromegaly - Respiratory Exam Respiratory Exam: Clear to Ausculation Bilateral. absent: Rales - Cardiovascular Exam Cardiovascular Exam: REGULAR RHYTHM, Murmur - GI/Abdominal Exam GI & Abdominal Exam: Normal Bowel Sounds. absent: Organomegaly - Rectal Exam Rectal Exam: Deferred - Extremities Exam Extremities Exam: Normal Capillary Refill. absent: Calf Tenderness - Neurological Exam Neurological Exam: Alert, Oriented x3 - Psychiatric Exam Psychiatric exam: Normal Mood - Skin Skin Exam: Dry Assessment and Plan (1) Hip fracture Status: Acute (2) Alcohol intoxication Status: Acute
--- NOTE | 2017-12-25 18:37 | RAD ---
HISTORY: febrile COMPARISON: 12/20/2017 FINDINGS: LUNGS: No active pulmonary disease. PLEURA: No significant pleural effusion identified, no pneumothorax apparent. CARDIOVASCULAR: Normal. OSSEOUS STRUCTURES: No significant abnormalities. VISUALIZED UPPER ABDOMEN: Normal. OTHER FINDINGS: None. IMPRESSION: No active disease.
--- NOTE | 2017-12-25 18:39 | CP.PCM.CON ---
History of Present Illness - History of Present Illness History of Present Illness: INFECTIOUS DISEASE CONSULT; HPI; 62-YEAR-OLD MALE WITH HISTORY OF HYPERTENSION WHO WAS ADMITTED STATUS POST FALL AND SUSTAINED FRACTURE OF THE LEFT HIP AND UNDERWENT CLOSED ORIF WITH SHORT NAIL ON 12/22/17. POST OPERATIVE PATIENT HAD DIFFICULTY URINATING AND FOLYS CATHETER WAS PLACED. PATIENT DEVELOPED GROSS HEMATURIA,. ALSO PATIENT HAS BEEN SPIKING TEMPERATURES POSTOPERATIVELY TO 102 AND URINE CULTURES REPORTED POSITIVE FOR ENTEROCOCCUS FAECALIS- S-AMPICILLIN, LINEZOLID, vANCO-BUT teo OF 4.PATIENT PRESENTLY ON iv ROCEPHIN. 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 ALSO HEPATIC CIRRHOSIS AND CHOLELITHIASIS WAS PRESENT. DIFFUSE RENAL MEDULLARY CALCIFICATION CONSISTENT WITH RED SPONGE KIDNEY WAS PRESENT. INFECTIOUS DISEASE CONSULTATION REQUESTED BY PMD FOR HYPERPYREXIA AND UROSEPSIS. ' PMH: HTN Denies: Chronic Kidney Disease - [facility] Procedures COLONOSCOPY (04/03/15) ESOPHAGOGASTRODUODENOSCOPY [EGD] W/CLOSED BIOPSY (04/03/15) PACKED CELL TRANSFUSION (04/03/15) VACCINATION NEC (05/08/15) Family History: States: No Known Family Hx - Social History Hx Tobacco Use: No Hx Alcohol Use: Yes Hx Substance Use: No - Immunization History Hx Tetanus Toxoid Vaccination: Yes Hx Influenza Vaccination: Yes Hx Pneumococcal Vaccination: Yes Past Patient History - Infectious Disease Hx of Infectious Diseases: None - Tetanus Immunizations Tetanus Immunization: Unknown - Past Medical History & Family History Past Medical History?: Yes - Past Social History Smoking Status: Former Smoker - CARDIAC Hx Cardiac Disorders: Yes Hx Hypertension: Yes - PULMONARY Hx Respiratory Disorders: Yes Other/Comment: hx pleural effusion - NEUROLOGICAL Hx Neurological Disorder: No - HEENT Hx HEENT Problems: Yes Other/Comment: wear reading eyeglasses - RENAL Hx Chronic Kidney Disease: No - ENDOCRINE/METABOLIC Hx Endocrine Disorders: No - HEMATOLOGICAL/ONCOLOGICAL Other/Comment: liver failure ----pt states he last drank beers 3 weeks ago - INTEGUMENTARY Hx Dermatological Problems: No - MUSCULOSKELETAL/RHEUMATOLOGICAL Hx Musculoskeletal Disorders: Yes Hx Falls: Yes (multiple) - GASTROINTESTINAL Hx Gastrointestinal Disorders: Yes Hx Liver Failure: Yes Other/Comment: alcohol abuse - GENITOURINARY/GYNECOLOGICAL Hx Genitourinary Disorders: No - PSYCHIATRIC Hx Substance Use: No - SURGICAL HISTORY Hx Surgeries: No Other/Comment: PT DENIES PER PATIENT - ANESTHESIA Hx Anesthesia: No Hx Anesthesia Reactions: No Meds Allergies/Adverse Reactions: Allergies Allergy/AdvReac Type Severity Reaction Status Date / Time No Known Allergies Allergy Verified 12/20/17 11:26 - Medications Medications: Current Medications Acetaminophen (Tylenol 325mg Tab) 650 mg PO Q4 PRN PRN Reason: Pain, moderate (4-7) Last Admin: 12/25/17 17:18 Dose: 650 mg Albuterol/Ipratropium (Duoneb 3 Mg/0.5 Mg (3 Ml) Ud) 3 ml INH RQ6 [facility] Last Admin: 12/25/17 13:10 Dose: Not Given Artificial Tears (Artificial Tears) 0 ml OU QID PRN PRN Reason: Dry eyes Last Admin: 12/23/17 13:38 Dose: 2 drop Enoxaparin Sodium (Lovenox) 40 mg SC DAILY [facility] Last Admin: 12/23/17 10:42 Dose: Not Given Sodium Chloride (Sodium Chloride 0.9%) 1,000 mls @ 100 mls/hr IV .Q10H [facility] Last Admin: 12/25/17 04:30 Dose: 100 mls/hr Piperacillin Sod/Tazobactam Sod (Zosyn 3.375 Gm Iv Premix) 3.375 gm in 50 mls @ 100 mls/hr IVPB Q8H [facility] PRN Reason: Protocol Lorazepam (Ativan) 1 mg IVP Q6H PRN PRN Reason: Anxiety Losartan Potassium (Cozaar) 50 mg PO DAILY [facility] Last Admin: 12/25/17 10:54 Dose: 50 mg Metoprolol Succinate (Toprol Xl) 25 mg PO DAILY [facility] Last Admin: 12/25/17 10:54 Dose: 25 mg Multivitamins (Hexavitamin) 1 tab PO DAILY [facility] Rosuvastatin Calcium (Crestor) 5 mg PO HS [facility] Last Admin: 12/24/17 21:20 Dose: 5 mg Tamsulosin HCl (Flomax) 0.4 mg PO DAILY [facility] Last Admin: 12/25/17 10:54 Dose: 0.4 mg Thiamine HCl (Vitamin B1 Tab) 100 mg PO BID [facility] Last Admin: 12/25/17 17:19 Dose: 100 mg Results - Vital Signs Recent Vital Signs: Last Vital Signs Temp 101 F H 12/25/17 17:18 Pulse 74 12/25/17 15:35 Resp 20 12/25/17 15:35 BP 144/76 12/25/17 15:35 Pulse Ox 97 12/25/17 15:35 - Labs Result Diagrams: 12/26/17 08:06 12/26/17 08:59 Labs: Laboratory Results - last 24 hr 12/24/17 12/25/17 23:54 07:16 WBC 7.7 RBC 2.72 L Hgb 9.1 L Hct 25.8 L MCV 94.8 H MCH 33.3 H MCHC 35.1 RDW 18.4 H Plt Count 135 MPV 7.5 Urine Color Tamika Urine Clarity Hazy Urine pH 6.0 Ur Specific Ben[place] 1.019 Urine Protein 1+ H Urine Glucose (UA) Normal Urine Ketones Negative Urine Blood 3+ H Urine Nitrate Negative Urine Bilirubin Negative Urine Urobilinogen 4.0 Ur Leukocyte Esterase Trace Urine WBC (Auto) 31 H Urine RBC (Auto) 729 H Assessment & Plan (1) Pyelonephritis Status: Acute (2) Closed intertrochanteric fracture of left femur Status: Acute (3) Hip fracture Status: Acute (4) Hematuria Status: Acute (5) Accidental fall Status: Acute (6) Alcohol intoxication Status: Acute (7) Right hip pain Status: Acute - Assessment and Plan (Free Text) Plan: PANCULTURES U/A AND URINE CULTURES. START iv ZOSYN3.375 EVERY 8 HOURLY FOR BETTER ENTEROCOCCAL COVERAGE. DC IV ROCEPHIN. F/U LFTS. F/U CBC F/U RENAL FUNCTION CASE DISCUSSED WITH David PHILLIP.
[2017-12-25] MEDS: Piperacill/Tazo 3.375gm in Dex 3.375 GM/50 ML BAG IVPB SCH (21:52)
--- NOTE | 2017-12-25 22:51 | CP.PCM.PN ---
Subjective - Date & Time of Evaluation Date of Evaluation: 12/25/17 Time of Evaluation: 18:30 - Subjective Subjective: pt seen and examined at bedside Objective - Vital Signs/Intake and Output Vital Signs (last 24 hours): Temp Pulse Resp BP Pulse Ox 99.5 F 74 20 144/76 97 12/25/17 21:13 12/25/17 15:35 12/25/17 15:35 12/25/17 15:35 12/25/17 15:35 Intake and Output: 12/25/17 12/26/17 18:59 06:59 Intake Total 1280 1330 Output Total 850 600 Balance 430 730 - Medications Medications: Current Medications Acetaminophen (Tylenol 325mg Tab) 650 mg PO Q4 PRN PRN Reason: Pain, moderate (4-7) Last Admin: 12/25/17 17:18 Dose: 650 mg Albuterol/Ipratropium (Duoneb 3 Mg/0.5 Mg (3 Ml) Ud) 3 ml INH RQ6 [facility] Last Admin: 12/25/17 19:05 Dose: Not Given Artificial Tears (Artificial Tears) 0 ml OU QID PRN PRN Reason: Dry eyes Last Admin: 12/23/17 13:38 Dose: 2 drop Enoxaparin Sodium (Lovenox) 40 mg SC DAILY [facility] Last Admin: 12/23/17 10:42 Dose: Not Given Sodium Chloride (Sodium Chloride 0.9%) 1,000 mls @ 100 mls/hr IV .Q10H [facility] Last Admin: 12/25/17 21:08 Dose: 100 mls/hr Piperacillin Sod/Tazobactam Sod (Zosyn 3.375 Gm Iv Premix) 3.375 gm in 50 mls @ 100 mls/hr IVPB Q8H [facility] PRN Reason: Protocol Last Admin: 12/25/17 21:52 Dose: 100 mls/hr Lorazepam (Ativan) 1 mg IVP Q6H PRN PRN Reason: Anxiety Losartan Potassium (Cozaar) 50 mg PO DAILY [facility] Last Admin: 12/25/17 10:54 Dose: 50 mg Metoprolol Succinate (Toprol Xl) 25 mg PO DAILY [facility] Last Admin: 12/25/17 10:54 Dose: 25 mg Multivitamins (Hexavitamin) 1 tab PO DAILY [facility] Rosuvastatin Calcium (Crestor) 5 mg PO HS [facility] Last Admin: 12/25/17 21:09 Dose: 5 mg Tamsulosin HCl (Flomax) 0.4 mg PO DAILY [facility] Last Admin: 12/25/17 10:54 Dose: 0.4 mg Thiamine HCl (Vitamin B1 Tab) 100 mg PO BID [facility] Last Admin: 12/25/17 17:19 Dose: 100 mg - Labs Labs: 12/25/17 07:16 12/24/17 11:12 PT 11.8 SECONDS (9.7-12.2) 12/20/17 14:47 INR 1.1 12/20/17 14:47 APTT 35 SECONDS (21-34) H 12/20/17 14:47 Assessment and Plan (1) Hip fracture Status: Acute (2) Accidental fall Status: Acute (3) Alcohol intoxication Status: Acute
--- NOTE | 2017-12-26 01:48 | CON ---
DATE:12/25/17 CHIEF COMPLAINT: The patient was referred by Dr. Khan for evaluation and co-management. The patient was very confused yesterday, agitated, was having visual hallucination and was seen signs as well as reported to see some spiders. The patient has long history of alcohol dependence, status post left hip surgery. HISTORY OF PRESENT ILLNESS: This is a case of 62-year-old male about [id number] of alcohol dependent. The patient claims that he has being drinking at least 3 to 4 cans of beer almost 4 to 5 times a week. The patient came here after he fell while dancing with girlfriend in his building while attending a birthday libertarian. He states his legs gave way while dancing. away. He said that he did not lose any consciousness, but the patient went for left hip surgery and yesterday was noted to became very confused, agitated, was having visual hallucination, and was very anxious. The patient was given Haldol and Ativan and was in one-to-one watch. Today, he is much better, he knows he is in hospital. Mental status seems to be much better, but was worried about what happened yesterday, when he said he was seeing signs. Today, he is more redirectable. He is not complaining of pain. The patient did admit that he drank a few days ago. He said he has some problems with keeping his balance. He said his legs gave away and has history of falls. PAST PSYCH HISTORY: Long history of alcohol dependence. No history of treatment for depression. PAST MEDICAL HISTORY: The patient has history of falls, history of hypertension. DRUG AND ALCOHOL HISTORY: The patient has 44-[id number] of drinking alcohol. ALLERGIES: NO KNOWN ALLERGIES. SOCIAL HISTORY: The patient lives alone. He has two children. He is retired. 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 LIST OF CURRENT MEDICATIONS: The patient is on Cozaar, Crestor, DuoNeb, and Tylenol. VITAL SIGNS: Temperature is 99.5, blood pressure 150/81, pulse rate 76, respirations 20, and oxygen saturation is 99%. REVIEW OF LABS: The patient's WBC is 7.7, H and H are 9.1 and 25.8, platelet is 135, creatinine is 0.7. UA showed +1 for protein as well as presence of +3 for blood as well as presence of urine wbc and rbc. The patient is status post left hip surgery. REVIEW OF SYSTEMS: GENERAL: An elderly male who looks stated age, pleasant and cooperative today, not confused, not in acute respiratory distress. The patient was distressed about his experience yesterday where he was hallucinating. SKIN: No diaphoresis. HEENT: No headache, no dizziness. NECK: Supple. RESPIRATORY: No dyspnea. CARDIOVASCULAR: No chest pain. GASTROINTESTINAL: No nausea, no vomiting. EXTREMITIES: Still has mild left hip pain. The patient is status post surgery,Complaining of mild pain. NEUROLOGIC: Alert and oriented x3. GENITOURINARY: No urinary problems. MENTAL STATUS EXAMINATION: An elderly male, who looks stated age, oriented x3. Mental status seems much improved compared to yesterday. Speech is spontaneous. Affect is reactive. Mood is calmer. Thought process, not confused. Thought content, no hallucinations. No paranoia. No suicidal or homicidal ideation. Attention and memory seems to be fair. Insight and judgment limited. Impulse control is fair at this time. IMPRESSION: History of delirium, metabolic encephalopathy, probably postop versus secondary to alcohol withdrawal as well as history of alcohol dependence. PLAN AND RECOMMENDATIONS: The patient is seen, meds reviewed. Continue present management. We will monitor for signs of alcohol withdrawal. However, we will give him Ativan 1 mg IV every 6 p.r.n. for agitation and alcohol withdrawal and then we will give him multivitamins one p.o. daily as well as given thiamine 100 mg p.o. b.i.d. Once the patient is medically clear, the patient may go for subacute rehab. He certainly lives alone. The patient states that he was in a rehab before, [facility] at [facility], who was there for over a year ago. For now, the patient seems to be doing much better, we will just give him Ativan p.r.n. as the patient has history of alcohol dependent and also some vitamin supplements. Thank you for the consult. Bird Elias MD MTDSamreen
[2017-12-26] MEDS: Albuterol-Ipratrop 3 mg / 0.5 (3 ml) UD INH SCH ×4 (01:49→19:16)
--- NOTE | 2017-12-26 01:51 | PN ---
DATE: SUBJECTIVE: The patient has a Wynne inserted after his hip fracture. His platelet was low, and he was on Lovenox, was bleeding. Lovenox stopped, and the platelet improved to 135,000. The patient is still bleeding pink-reddish color urine. No clots still now. The patient has no pain, no lower abdominal pain. No spasm. PLAN: If the patient continued to bleed, he needs cystoscopy. Also, I ordered CT of the abdomen and pelvis, and we will follow him. Roshan Hogue MD
[2017-12-26] MEDS: Piperacill/Tazo 3.375gm in Dex 3.375 GM/50 ML BAG IVPB SCH ×2 (04:03→11:39)
[2017-12-26 08:14] LABS: BASO # 0.1 K/uL (0.0-0.2); EOS # 0.3 K/uL (0.0-0.7); EOS % 4.6 % (0.0-4.0); HEMOGLOBIN 8.8 g/dL (12.0-18.0); LYMPH # 1.1 K/uL (1.0-4.3); LYMPH % 16.1 % (20.0-40.0); MEAN CELL VOLUME 96.1 fL (80.0-94.0); MEAN CORPUSCULAR HEMOGLOBIN 33.6 pg (27.0-31.0); MEAN PLATELET VOLUME 7.5 fL (7.2-11.7); MONO # 1.7 K/uL (0.0-0.8); MONO % 23.3 % (0.0-10.0); NEUT # 3.9 K/uL (1.8-7.0); PLATELET COUNT 145 K/uL (130-400); RBC 2.63 Mil/uL (4.40-5.90); RED CELL DISTRIBUTION WIDTH 18.3 % (11.5-14.5); WHITE BLOOD COUNT 7.1 K/uL (4.8-10.8)
[2017-12-26 09:19] LABS: BANDS 2 % (0-2); BASOPHIL 2 % (0-2); EOSINOPHIL 2 % (0-4); LYMPHOCYTE 16 % (20-40); MONOCYTE 20 % (0-10); MYELOCYTE 1 % (0-0); NEUTROPHIL 56 % (50-75); PLATELET ESTIMATE NORMAL (NORMAL); REACTIVE LYMPHOCYTES 1 % (0-0); TOTAL CELLS COUNTED 100
[2017-12-26 09:20] LABS: ANISOCYTOSIS SLIGHT; HYPOCHROMIC SLIGHT; POIKILOCYTOSIS SLIGHT; POLYCHROMIC SLIGHT
[2017-12-26 09:21] LABS: BLOOD UREA NITROGEN 13 mg/dL (9-20); CALCIUM 7.6 mg/dl (8.6-10.4); GFR AFRICAN-AMERICAN > 60; GFR NON-AFRICAN AMERICAN > 60
[2017-12-26 09:21] LABS: BURR CELLS SLIGHT; TARGET CELLS SLIGHT
[2017-12-26] MEDS: Metoprolol Succinate 25 mg XL Tab PO SCH (09:28)
[2017-12-26] MEDS: Multiple Vitamins Tab PO SCH (09:28)
[2017-12-26] MEDS: Sodium Chloride 0.9% 1,000 ML IV SCH (09:32)
[2017-12-26] MEDS: Potassium Chloride 20 mEq ER Tab PO SCH (10:07)
[2017-12-26] MEDS: AMPicillin 2 GM in Sodium Chloride 100 ML IVPB SCH ×2 (14:28→19:12)
[2017-12-26] MEDS: Aritificial Tears (15ml) OU PRN (14:29)
--- NOTE | 2017-12-26 15:13 | NM ---
PROCEDURE: Whole Body Bone Scan HISTORY: CT report met. disease COMPARISON: 12/25/2017 CT abdomen and pelvis. Summary of findings on the comparison examination: Sclerotic bony metastasis consistent with prostatic neoplasm. TECHNIQUE: Following administration of 23.4 miCu of Tc MDP multiplanar whole body images were obtained. FINDINGS: Evidence for bony metastatic disease: Thoracolumbar spine, ribs and possibly sternum. Additional abnormalities in the sacrum Degenerative uptake: Bilateral knees Physiologic uptake: Normal physiologic activity in the kidneys. Other findings: Increased uptake in the left hip compatible with orthopedic hardware proximal left femur. IMPRESSION: Confirmation of bony metastatic disease primarily affecting the axial skeleton.
--- NOTE | 2017-12-26 16:56 | CP.PCM.PN ---
Subjective - Date & Time of Evaluation Date of Evaluation: 12/26/17 Time of Evaluation: 14:00 - Subjective Subjective: no delirium, enterococci in urine Objective - Vital Signs/Intake and Output Vital Signs (last 24 hours): Temp Pulse Resp BP Pulse Ox 98.9 F 69 18 145/82 100 12/26/17 15:53 12/26/17 16:00 12/26/17 15:53 12/26/17 15:53 12/26/17 15:53 Intake and Output: 12/26/17 12/26/17 06:59 18:59 Intake Total 2250 1250 Output Total 3300 1000 Balance -1050 250 - Medications Medications: Current Medications Acetaminophen (Tylenol 325mg Tab) 650 mg PO Q6 PRN PRN Reason: Pain, moderate (4-7) Last Admin: 12/26/17 08:32 Dose: 650 mg Albuterol/Ipratropium (Duoneb 3 Mg/0.5 Mg (3 Ml) Ud) 3 ml INH RQ6 [facility] Last Admin: 12/26/17 13:26 Dose: Not Given Artificial Tears (Artificial Tears) 0 ml OU QID PRN PRN Reason: Dry eyes Last Admin: 12/26/17 14:29 Dose: 1 drop Enoxaparin Sodium (Lovenox) 40 mg SC DAILY [facility] Last Admin: 12/23/17 10:42 Dose: Not Given Sodium Chloride (Sodium Chloride 0.9%) 1,000 mls @ 100 mls/hr IV .Q10H [facility] Last Admin: 12/26/17 09:32 Dose: 100 mls/hr Ampicillin 2 gm/ Sodium (Chloride) 100 mls @ 50 mls/hr IVPB Q6H [facility] PRN Reason: Protocol Last Admin: 12/26/17 14:28 Dose: 50 mls/hr Lorazepam (Ativan) 1 mg IVP Q6H PRN PRN Reason: Anxiety Losartan Potassium (Cozaar) 50 mg PO DAILY [facility] Last Admin: 12/26/17 09:29 Dose: 50 mg Metoprolol Succinate (Toprol Xl) 25 mg PO DAILY [facility] Last Admin: 12/26/17 09:28 Dose: 25 mg Multivitamins (Hexavitamin) 1 tab PO DAILY [facility] Last Admin: 12/26/17 09:28 Dose: 1 tab Potassium Chloride (K-Dur 20 Meq Er Tab) 40 meq PO DAILY [facility] Stop: 12/28/17 10:01 Last Admin: 12/26/17 10:07 Dose: 40 meq Rosuvastatin Calcium (Crestor) 5 mg PO HS [facility] Last Admin: 12/25/17 21:09 Dose: 5 mg Tamsulosin HCl (Flomax) 0.4 mg PO DAILY [facility] Last Admin: 12/26/17 09:28 Dose: 0.4 mg Thiamine HCl (Vitamin B1 Tab) 100 mg PO BID [facility] Last Admin: 12/26/17 09:29 Dose: 100 mg - Labs Labs: 12/26/17 08:06 12/26/17 08:59 PT 11.8 SECONDS (9.7-12.2) 12/20/17 14:47 INR 1.1 12/20/17 14:47 APTT 35 SECONDS (21-34) H 12/20/17 14:47 - Constitutional Appears: Non-toxic - Head Exam Head Exam: ATRAUMATIC - Eye Exam Eye Exam: EOMI - ENT Exam ENT Exam: Mucous Membranes Moist - Neck Exam Neck Exam: absent: Lymphadenopathy, Thyromegaly - Respiratory Exam Respiratory Exam: Clear to Ausculation Bilateral, Rhonchi. absent: Rales - Cardiovascular Exam Cardiovascular Exam: REGULAR RHYTHM, Murmur - GI/Abdominal Exam GI & Abdominal Exam: Normal Bowel Sounds. absent: Organomegaly - Rectal Exam Rectal Exam: Deferred - Extremities Exam Extremities Exam: Normal Capillary Refill. absent: Calf Tenderness - Neurological Exam Neurological Exam: Alert, Oriented x3 - Psychiatric Exam Psychiatric exam: Normal Mood - Skin Skin Exam: absent: Dry Assessment and Plan (1) Hip fracture Status: Acute (2) Alcohol intoxication Status: Acute
--- NOTE | 2017-12-26 23:27 | CP.PCM.PN ---
Objective - Vital Signs/Intake and Output Vital Signs (last 24 hours): Temp Pulse Resp BP Pulse Ox 98.9 F 69 18 145/82 100 12/26/17 15:53 12/26/17 16:00 12/26/17 15:53 12/26/17 15:53 12/26/17 15:53 Intake and Output: 12/26/17 12/27/17 18:59 06:59 Intake Total 1250 1120 Output Total 1000 1900 Balance 250 -780 - Medications Medications: Current Medications Acetaminophen (Tylenol 325mg Tab) 650 mg PO Q6 PRN PRN Reason: Pain, moderate (4-7) Last Admin: 12/26/17 08:32 Dose: 650 mg Albuterol/Ipratropium (Duoneb 3 Mg/0.5 Mg (3 Ml) Ud) 3 ml INH RQ6 [facility] Last Admin: 12/26/17 19:16 Dose: Not Given Artificial Tears (Artificial Tears) 0 ml OU QID PRN PRN Reason: Dry eyes Last Admin: 12/26/17 14:29 Dose: 1 drop Enoxaparin Sodium (Lovenox) 40 mg SC DAILY [facility] Last Admin: 12/23/17 10:42 Dose: Not Given Ampicillin 2 gm/ Sodium (Chloride) 100 mls @ 50 mls/hr IVPB Q6H [facility] PRN Reason: Protocol Last Admin: 12/26/17 19:12 Dose: 50 mls/hr Lorazepam (Ativan) 1 mg IVP Q6H PRN PRN Reason: Anxiety Losartan Potassium (Cozaar) 50 mg PO DAILY [facility] Last Admin: 12/26/17 09:29 Dose: 50 mg Metoprolol Succinate (Toprol Xl) 25 mg PO DAILY [facility] Last Admin: 12/26/17 09:28 Dose: 25 mg Multivitamins (Hexavitamin) 1 tab PO DAILY [facility] Last Admin: 12/26/17 09:28 Dose: 1 tab Potassium Chloride (K-Dur 20 Meq Er Tab) 40 meq PO DAILY [facility] Stop: 12/28/17 10:01 Last Admin: 12/26/17 10:07 Dose: 40 meq Rosuvastatin Calcium (Crestor) 5 mg PO HS [facility] Last Admin: 12/26/17 21:43 Dose: 5 mg Tamsulosin HCl (Flomax) 0.4 mg PO DAILY [facility] Last Admin: 12/26/17 09:28 Dose: 0.4 mg Thiamine HCl (Vitamin B1 Tab) 100 mg PO BID [facility] Last Admin: 12/26/17 21:43 Dose: 100 mg - Labs Labs: 12/26/17 08:06 12/26/17 08:59 PT 11.8 SECONDS (9.7-12.2) 12/20/17 14:47 INR 1.1 12/20/17 14:47 APTT 35 SECONDS (21-34) H 12/20/17 14:47 Assessment and Plan (1) Hip fracture Status: Acute (2) Accidental fall Status: Acute (3) Alcohol intoxication Status: Acute
--- NOTE | 2017-12-27 00:24 | PN ---
DATE: SUBJECTIVE: The patient is seen for followup. The patient is not exhibiting any psychosis, no hallucination. He reports he was seeing spiders and see signs moving in the leal, but today, he is complaining of having jitters. The patient is shaky. He is not complaining of pain. He also mentioned that he is willing to go for subacute rehab because he said he lives alone and he cannot walk. REVIEW OF LABS: The patient had bone scan, nuclear medicine test done that showed evidence for bony metastatic disease, and the patient also showed sclerotic bony metastasis consisting of prostate neoplasm. The patient did admit that he has problems with his prostate, but the patient is not aware that he has mets affecting his bones. He is only taking thiamine and Ativan at this time psych sanchez, but he still states that he feels very weak. PHYSICAL EXAMINATION: VITAL SIGNS: Temperature is 98.9, pulse 69, blood pressure 145/82, respirations 18, oxygen saturation 100% on room air. REVIEW OF SYSTEMS: GENERAL: The patient is alert, verbal, less confused, oriented x3, seen in his room. Today, "I feel very anxious." The patient has f Ativan p.r.n.for anxiety. SKIN: No diaphoresis. HEENT: No headache or dizziness. NECK: Supple. RESPIRATORY: No dyspnea. CARDIOVASCULAR: No chest pain. GASTROINTESTINAL: The patient is eating well. EXTREMITIES: The patient has pain in the surgical site, history of fracture of the hip, however, the patient has no generalized bone ache although patient on the bone scan showed metastatic bone disease from prostate. NEUROLOGIC: The patient is alert, verbal, less confused. GENITOURINARY: No dysuria. MENTAL STATUS EXAMINATION: Elderly male, who looks his age, oriented x3, less confused. Affect is reactive. Speech spontaneous. Mood is calmer. Thought process coherent. Thought content, no paranoia. No hallucinations. No suicidal or homicidal ideation. Attention and memory seem to be fair. Insight and judgement are fair. Impulse control is fair. IMPRESSION: History of delirium, metabolic encephalopathy, probably postop versus alcohol withdrawal, improving as well as history of left hip surgery as well as history of metastatic bone disease, probably from his prostate. PLAN AND RECOMMENDATIONS: The patient is seen, meds reviewed. Continue present management. Continue treatment plan as outlined. The patient is for subacute rehab once medically cleared. The patient is not fully clear about his medical status, jef about his prostate and the bone mets as noted by the bone scan. Bird Elias MD [email or web address]
[2017-12-27] MEDS: AMPicillin 2 GM in Sodium Chloride 100 ML IVPB SCH ×4 (00:57→19:20)
[2017-12-27] MEDS: Albuterol-Ipratrop 3 mg / 0.5 (3 ml) UD INH SCH ×4 (01:58→19:28)
[2017-12-27] MEDS: Multiple Vitamins Tab PO SCH (10:58)
[2017-12-27] MEDS: Potassium Chloride 20 mEq ER Tab PO SCH (10:59)
[2017-12-27] MEDS: Metoprolol Succinate 25 mg XL Tab PO SCH (11:01)
--- NOTE | 2017-12-27 12:27 | CP.PCM.PN ---
Subjective - Date & Time of Evaluation Date of Evaluation: 12/27/17 Time of Evaluation: 12:00 - Subjective Subjective: Seen by psych and in addition to infectious disease. On treatment in addition to PT, able to walk, more alert, no dysuria and after hydration Objective - Vital Signs/Intake and Output Vital Signs (last 24 hours): Temp Pulse Resp BP Pulse Ox 98.0 F 69 20 165/68 H 97 12/27/17 08:00 12/27/17 11:57 12/27/17 08:00 12/27/17 08:00 12/27/17 08:00 Intake and Output: 12/27/17 12/27/17 06:59 18:59 Intake Total 1120 Output Total 2850 Balance -1730 - Medications Medications: Current Medications Acetaminophen (Tylenol 325mg Tab) 650 mg PO Q6 PRN PRN Reason: Pain, moderate (4-7) Last Admin: 12/26/17 08:32 Dose: 650 mg Albuterol/Ipratropium (Duoneb 3 Mg/0.5 Mg (3 Ml) Ud) 3 ml INH RQ6 [facility] Last Admin: 12/27/17 07:35 Dose: Not Given Artificial Tears (Artificial Tears) 0 ml OU QID PRN PRN Reason: Dry eyes Last Admin: 12/26/17 14:29 Dose: 1 drop Enoxaparin Sodium (Lovenox) 40 mg SC DAILY [facility] Last Admin: 12/23/17 10:42 Dose: Not Given Ampicillin 2 gm/ Sodium (Chloride) 100 mls @ 50 mls/hr IVPB Q6H [facility] PRN Reason: Protocol Last Admin: 12/27/17 06:33 Dose: 50 mls/hr Lorazepam (Ativan) 1 mg IVP Q6H PRN PRN Reason: Anxiety Losartan Potassium (Cozaar) 50 mg PO DAILY [facility] Last Admin: 12/27/17 10:56 Dose: 50 mg Metoprolol Succinate (Toprol Xl) 25 mg PO DAILY [facility] Last Admin: 12/27/17 11:01 Dose: 25 mg Multivitamins (Hexavitamin) 1 tab PO DAILY [facility] Last Admin: 12/27/17 10:58 Dose: 1 tab Potassium Chloride (K-Dur 20 Meq Er Tab) 40 meq PO DAILY [facility] Stop: 12/28/17 10:01 Last Admin: 12/27/17 10:59 Dose: 40 meq Rosuvastatin Calcium (Crestor) 5 mg PO HS [facility] Last Admin: 12/26/17 21:43 Dose: 5 mg Tamsulosin HCl (Flomax) 0.4 mg PO DAILY [facility] Last Admin: 12/27/17 10:57 Dose: 0.4 mg Thiamine HCl (Vitamin B1 Tab) 100 mg PO BID [facility] Last Admin: 12/27/17 11:02 Dose: 100 mg - Labs Labs: 12/26/17 08:06 12/26/17 08:59 PT 11.8 SECONDS (9.7-12.2) 12/20/17 14:47 INR 1.1 12/20/17 14:47 APTT 35 SECONDS (21-34) H 12/20/17 14:47 - Constitutional Appears: Non-toxic - Head Exam Head Exam: ATRAUMATIC - Eye Exam Eye Exam: EOMI - ENT Exam ENT Exam: Mucous Membranes Moist - Neck Exam Neck Exam: absent: Lymphadenopathy, Thyromegaly - Respiratory Exam Respiratory Exam: Clear to Ausculation Bilateral. absent: Rales - Cardiovascular Exam Cardiovascular Exam: REGULAR RHYTHM, Murmur - GI/Abdominal Exam GI & Abdominal Exam: Normal Bowel Sounds. absent: Organomegaly - Rectal Exam Rectal Exam: Deferred - Extremities Exam Extremities Exam: Normal Capillary Refill. absent: Calf Tenderness - Neurological Exam Neurological Exam: Alert, Oriented x3 - Psychiatric Exam Psychiatric exam: Normal Mood - Skin Skin Exam: Dry Assessment and Plan (1) Hip fracture Status: Acute (2) Alcohol intoxication Status: Acute
--- NOTE | 2017-12-27 12:41 | CP.PCM.PN ---
Subjective - Date & Time of Evaluation Date of Evaluation: 12/27/17 Time of Evaluation: 12:40 - Subjective Subjective: Patient complaining that he wants to be out of bed more. Advised patient that at this time he can not get up without assistance, but is encouraged to stay OOB in chair. Pain is improving. No CP/SOB/dizziness/numbness/tnigling. Objective - Vital Signs/Intake and Output Vital Signs (last 24 hours): Temp Pulse Resp BP Pulse Ox 98.0 F 69 20 165/68 H 97 12/27/17 08:00 12/27/17 11:57 12/27/17 08:00 12/27/17 08:00 12/27/17 08:00 Intake and Output: 12/27/17 12/27/17 06:59 18:59 Intake Total 1120 Output Total 2850 Balance -1730 - Medications Medications: Current Medications Acetaminophen (Tylenol 325mg Tab) 650 mg PO Q6 PRN PRN Reason: Pain, moderate (4-7) Last Admin: 12/26/17 08:32 Dose: 650 mg Albuterol/Ipratropium (Duoneb 3 Mg/0.5 Mg (3 Ml) Ud) 3 ml INH RQ6 [facility] Last Admin: 12/27/17 07:35 Dose: Not Given Artificial Tears (Artificial Tears) 0 ml OU QID PRN PRN Reason: Dry eyes Last Admin: 12/26/17 14:29 Dose: 1 drop Enoxaparin Sodium (Lovenox) 40 mg SC DAILY [facility] Last Admin: 12/23/17 10:42 Dose: Not Given Ampicillin 2 gm/ Sodium (Chloride) 100 mls @ 50 mls/hr IVPB Q6H [facility] PRN Reason: Protocol Last Admin: 12/27/17 06:33 Dose: 50 mls/hr Lorazepam (Ativan) 1 mg IVP Q6H PRN PRN Reason: Anxiety Losartan Potassium (Cozaar) 50 mg PO DAILY [facility] Last Admin: 12/27/17 10:56 Dose: 50 mg Metoprolol Succinate (Toprol Xl) 25 mg PO DAILY [facility] Last Admin: 12/27/17 11:01 Dose: 25 mg Multivitamins (Hexavitamin) 1 tab PO DAILY [facility] Last Admin: 12/27/17 10:58 Dose: 1 tab Potassium Chloride (K-Dur 20 Meq Er Tab) 40 meq PO DAILY [facility] Stop: 12/28/17 10:01 Last Admin: 12/27/17 10:59 Dose: 40 meq Rosuvastatin Calcium (Crestor) 5 mg PO HS [facility] Last Admin: 12/26/17 21:43 Dose: 5 mg Tamsulosin HCl (Flomax) 0.4 mg PO DAILY [facility] Last Admin: 12/27/17 10:57 Dose: 0.4 mg Thiamine HCl (Vitamin B1 Tab) 100 mg PO BID [facility] Last Admin: 12/27/17 11:02 Dose: 100 mg - Labs Labs: 12/26/17 08:06 12/26/17 08:59 PT 11.8 SECONDS (9.7-12.2) 12/20/17 14:47 INR 1.1 12/20/17 14:47 APTT 35 SECONDS (21-34) H 12/20/17 14:47 - Head Exam Additional comments: left thigh: soft, mild swelling, no erythema, calves soft Nt neg homans, venodynes applied, sensation intact +DP/PT pulses Assessment and Plan (1) Closed intertrochanteric fracture of left femur Assessment & Plan: POD#5 s/p left hip IM nailing -PT/OT -d/c planning to rehab VTE proph, SCDs at all times, recommend resuming lovenox as soon as possible after hematuria resolved orthopedically stable d/w Dr. Pradhan, agrees with above f/u Dr. Pradhan 10-14 days upon discharge call for appointment [phone] Status: Acute
[2017-12-27] MEDS: Aritificial Tears (15ml) OU PRN (17:31)
--- NOTE | 2017-12-27 19:40 | PN ---
DATE: SUBJECTIVE: The patient is seen. He is doing much better, almost back to his baseline, not complaining of pain. No tremors. No signs or symptoms of alcohol withdrawal. He said he is willing to go for subacute rehab because he cannot walk. The patient is complaining of pain in his left hip today. He said he is hoping to go to [facility]. PHYSICAL EXAMINATION: VITAL SIGNS: Temperature is 98, pulse 69, blood pressure 165/68, respiratory rate 20, and saturations 97%. REVIEW OF SYSTEMS: GENERAL: The patient is alert, oriented x3. Mental status is much improved. He is interested to go for subacute rehab. He said he does not want to go to [facility] at [place] because they took all his security money and his check. SKIN: No diaphoresis. HEENT: No headache. No dizziness. NECK: Supple. RESPIRATORY: No dyspnea. CARDIOVASCULAR: No chest pain. GASTROINTESTINAL: He is eating well. No diarrhea. MUSCULOSKELETAL: Feels weak. NEURO: Alert and oriented x3. The patient is status post surgery of the left hip, doing much better. MENTAL STATUS EXAMINATION: An elderly male, who looks stated age, alert and oriented x3. Mood is calm. Affect is reactive. Speech is spontaneous. Thought process, coherent. Thought content, no psychosis. No suicidal or homicidal ideation. Attention and memory seem to be fair. Insight and judgment fair. Impulse control is fair. IMPRESSION: History of alcohol dependence, history of alcohol withdrawal with delirium as well as history of fall and history of fracture of the left hip, status post surgery. PLAN AND RECOMMENDATIONS: The patient is seen, meds reviewed. Continue present management. Patient is for subacute rehab once medically cleared psych sanchez. We will just keep the patient on the Ativan p.r.n. and thiamine as well as vitamin. Continue treatment plan as outlined. Bird Elias MD
--- NOTE | 2017-12-27 20:22 | CP.PCM.PN ---
Subjective - Date & Time of Evaluation Date of Evaluation: 12/27/17 Time of Evaluation: 20:17 - Subjective Subjective: CHIEF COMPLAINTS TODAY : TEMP 99,9 VS BP 131/63 WANTS TO GET OOB seen by ortho-noted. +ve foly ROS. HEENT : N. Resp : No cough, wheezing ,pleuritic CP ,or hemoptysis Cardio : No anginal CP, PND, orthopnea, palpitation GI : No abd.pain, n/v ,diarrhea or GI bleeding . [employer] : No headache, vertigo, focal deficit. Musculoskel : No joint swelling , Derm : No rash Psych : Normal affect. Ext : No swelling ,calf pain Left thigh: soft, mild swelling, no erythema, calves soft Nt neg homans, venodynes applied, sensation intact +DP/PT pulses PE. Pt. is alert awake in no distress. V.S As noted in the chart Head ,ear nose,throat and eyes : Normal. Neck : Supple with normal carotids. Lungs: Clear air entry. Heart : S1 & S2 normal with S4. No murmur. Abd : Soft non tender with normal bowel sounds. Neuro : Moves all ext. with no localized deficit. Ext : No edema with intact pulses.Non tender calves Left thigh: soft, mild swelling, no erythema, calves soft Nt neg homans, venodynes applied, sensation intact +DP/PT pulses Derm : No rashes or decubitus ulcer. LABS/RADIOLOGY: REVIEWED Objective - Vital Signs/Intake and Output Vital Signs (last 24 hours): Temp Pulse Resp BP Pulse Ox 99.7 F H 74 18 131/63 96 12/27/17 15:42 12/27/17 15:42 12/27/17 15:42 12/27/17 15:42 12/27/17 15:42 - Medications Medications: Current Medications Acetaminophen (Tylenol 325mg Tab) 650 mg PO Q6 PRN PRN Reason: Pain, moderate (4-7) Last Admin: 12/26/17 08:32 Dose: 650 mg Albuterol/Ipratropium (Duoneb 3 Mg/0.5 Mg (3 Ml) Ud) 3 ml INH RQ6 [facility] Last Admin: 12/27/17 19:28 Dose: Not Given Artificial Tears (Artificial Tears) 0 ml OU QID PRN PRN Reason: Dry eyes Last Admin: 12/27/17 17:31 Dose: 2 drop Enoxaparin Sodium (Lovenox) 40 mg SC DAILY [facility] Last Admin: 12/23/17 10:42 Dose: Not Given Ampicillin 2 gm/ Sodium (Chloride) 100 mls @ 50 mls/hr IVPB Q6H [facility] PRN Reason: Protocol Last Admin: 12/27/17 13:35 Dose: 50 mls/hr Lorazepam (Ativan) 1 mg IVP Q6H PRN PRN Reason: Anxiety Losartan Potassium (Cozaar) 50 mg PO DAILY [facility] Last Admin: 12/27/17 10:56 Dose: 50 mg Metoprolol Succinate (Toprol Xl) 25 mg PO DAILY [facility] Last Admin: 12/27/17 11:01 Dose: 25 mg Multivitamins (Hexavitamin) 1 tab PO DAILY [facility] Last Admin: 12/27/17 10:58 Dose: 1 tab Potassium Chloride (K-Dur 20 Meq Er Tab) 40 meq PO DAILY [facility] Stop: 12/28/17 10:01 Last Admin: 12/27/17 10:59 Dose: 40 meq Rosuvastatin Calcium (Crestor) 5 mg PO HS [facility] Last Admin: 12/26/17 21:43 Dose: 5 mg Tamsulosin HCl (Flomax) 0.4 mg PO DAILY [facility] Last Admin: 12/27/17 10:57 Dose: 0.4 mg Thiamine HCl (Vitamin B1 Tab) 100 mg PO BID [facility] Last Admin: 12/27/17 17:32 Dose: 100 mg - Labs Labs: 12/26/17 08:06 12/26/17 08:59 PT 11.8 SECONDS (9.7-12.2) 12/20/17 14:47 INR 1.1 12/20/17 14:47 APTT 35 SECONDS (21-34) H 12/20/17 14:47 Assessment and Plan (1) Pyelonephritis Status: Acute (2) Closed intertrochanteric fracture of left femur Status: Acute (3) Hip fracture Status: Acute (4) Hematuria Status: Acute (5) Accidental fall Status: Acute (6) Alcohol intoxication Status: Acute (7) Right hip pain Status: Acute - Assessment and Plan (Free Text) Assessment: POD#5 s/p left hip IM nailing -PT/OT - CONTINUE IV AMPICILLIN 2GM IVPB Q6 [facility]RLY X 10 DAYS . - F/U REPEAT UA/URINE CULTURE. -MONITOR LFTS /RENAL FUNCTION
--- NOTE | 2017-12-27 23:25 | CP.PCM.PN ---
Subjective - Date & Time of Evaluation Date of Evaluation: 12/27/17 Time of Evaluation: 18:00 - Subjective Subjective: Pt seen and examined at bedside Objective - Vital Signs/Intake and Output Vital Signs (last 24 hours): Temp Pulse Resp BP Pulse Ox 99.7 F H 74 18 131/63 96 12/27/17 15:42 12/27/17 15:42 12/27/17 15:42 12/27/17 15:42 12/27/17 15:42 Intake and Output: 12/27/17 12/28/17 18:59 06:59 Output Total 1400 Balance -1400 - Medications Medications: Current Medications Acetaminophen (Tylenol 325mg Tab) 650 mg PO Q6 PRN PRN Reason: Pain, moderate (4-7) Last Admin: 12/26/17 08:32 Dose: 650 mg Albuterol/Ipratropium (Duoneb 3 Mg/0.5 Mg (3 Ml) Ud) 3 ml INH RQ6 [facility] Last Admin: 12/27/17 19:28 Dose: Not Given Artificial Tears (Artificial Tears) 0 ml OU QID PRN PRN Reason: Dry eyes Last Admin: 12/27/17 17:31 Dose: 2 drop Enoxaparin Sodium (Lovenox) 40 mg SC DAILY [facility] Last Admin: 12/23/17 10:42 Dose: Not Given Ampicillin 2 gm/ Sodium (Chloride) 100 mls @ 50 mls/hr IVPB Q6H [facility] PRN Reason: Protocol Last Admin: 12/27/17 19:20 Dose: 50 mls/hr Lorazepam (Ativan) 1 mg IVP Q6H PRN PRN Reason: Anxiety Losartan Potassium (Cozaar) 50 mg PO DAILY [facility] Last Admin: 12/27/17 10:56 Dose: 50 mg Metoprolol Succinate (Toprol Xl) 25 mg PO DAILY [facility] Last Admin: 12/27/17 11:01 Dose: 25 mg Multivitamins (Hexavitamin) 1 tab PO DAILY [facility] Last Admin: 12/27/17 10:58 Dose: 1 tab Potassium Chloride (K-Dur 20 Meq Er Tab) 40 meq PO DAILY [facility] Stop: 12/28/17 10:01 Last Admin: 12/27/17 10:59 Dose: 40 meq Rosuvastatin Calcium (Crestor) 5 mg PO HS [facility] Last Admin: 12/27/17 21:20 Dose: 5 mg Tamsulosin HCl (Flomax) 0.4 mg PO DAILY [facility] Last Admin: 12/27/17 10:57 Dose: 0.4 mg Thiamine HCl (Vitamin B1 Tab) 100 mg PO BID [facility] Last Admin: 12/27/17 17:32 Dose: 100 mg - Labs Labs: 12/26/17 08:06 12/26/17 08:59 PT 11.8 SECONDS (9.7-12.2) 12/20/17 14:47 INR 1.1 12/20/17 14:47 APTT 35 SECONDS (21-34) H 12/20/17 14:47 Assessment and Plan (1) Hip fracture Status: Acute (2) Accidental fall Status: Acute (3) Alcohol intoxication Status: Acute
[2017-12-28] MEDS: AMPicillin 2 GM in Sodium Chloride 100 ML IVPB SCH ×4 (00:35→18:30)
[2017-12-28] MEDS: Albuterol-Ipratrop 3 mg / 0.5 (3 ml) UD INH SCH ×4 (02:40→20:43)
[2017-12-28 07:12] LABS: ALB/GLOB RATIO 0.7 (1.0-2.1); ALBUMIN 2.4 g/dL (3.5-5.0); ALT/SGPT 34 U/L (21-72); AST/SGOT 55 U/L (17-59); BILIRUBIN,DIRECT 0.9 mg/dL (0.0-0.4); BLOOD UREA NITROGEN 12 mg/dL (9-20); GFR AFRICAN-AMERICAN > 60; GFR NON-AFRICAN AMERICAN > 60
[2017-12-28] MEDS: Aritificial Tears (15ml) OU PRN (09:27)
[2017-12-28] MEDS: Metoprolol Succinate 25 mg XL Tab PO SCH (09:27)
[2017-12-28] MEDS: Potassium Chloride 20 mEq ER Tab PO SCH (09:27)
[2017-12-28] MEDS: Multiple Vitamins Tab PO SCH (09:27)
[2017-12-28 11:24] LABS: BASO # 0.1 K/uL (0.0-0.2); BASO % 0.9 % (0.0-2.0); EOS # 0.3 K/uL (0.0-0.7); EOS % 4.7 % (0.0-4.0); HEMOGLOBIN 9.3 g/dL (12.0-18.0); LYMPH # 1.4 K/uL (1.0-4.3); LYMPH % 18.9 % (20.0-40.0); MEAN CORPUSCULAR HEMOGLOBIN 33.8 pg (27.0-31.0); MEAN CORPUSCULAR HGB CONC 34.4 g/dL (33.0-37.0); MEAN PLATELET VOLUME 7.9 fL (7.2-11.7); MONO # 1.7 K/uL (0.0-0.8); MONO % 23.4 % (0.0-10.0); NEUT # 3.8 K/uL (1.8-7.0); NEUT % 52.1 % (50.0-75.0); PLATELET COUNT 177 K/uL (130-400); RBC 2.75 Mil/uL (4.40-5.90); RED CELL DISTRIBUTION WIDTH 18.2 % (11.5-14.5); WHITE BLOOD COUNT 7.4 K/uL (4.8-10.8)
[2017-12-28 11:30] LABS: MEAN CELL VOLUME 98.2 fL (80.0-94.0)
[2017-12-28 12:18] LABS: BANDS 2 % (0-2); BASOPHIL 1 % (0-2); EOSINOPHIL 3 % (0-4); LYMPHOCYTE 15 % (20-40); MONOCYTE 24 % (0-10); NEUTROPHIL 55 % (50-75); TOTAL CELLS COUNTED 100
[2017-12-28 12:19] LABS: PLATELET ESTIMATE NORMAL (NORMAL)
[2017-12-28 12:21] LABS: ANISOCYTOSIS SLIGHT
[2017-12-28 12:26] LABS: POLYCHROMIC SLIGHT
[2017-12-28 12:27] LABS: HYPOCHROMIC SLIGHT
--- NOTE | 2017-12-28 18:04 | CP.PCM.PN ---
Subjective - Date & Time of Evaluation Date of Evaluation: 12/28/17 Time of Evaluation: 14:00 - Subjective Subjective: Pt seen and examined, afebrile, is feeling better Objective - Vital Signs/Intake and Output Vital Signs (last 24 hours): Temp Pulse Resp BP Pulse Ox 99.9 F H 64 20 151/68 H 98 12/28/17 15:05 12/28/17 15:05 12/28/17 15:05 12/28/17 15:05 12/28/17 15:05 Intake and Output: 12/28/17 12/28/17 06:59 18:59 Output Total 1400 450 Balance -1400 -450 - Medications Medications: Current Medications Acetaminophen (Tylenol 325mg Tab) 650 mg PO Q6 PRN PRN Reason: Pain, moderate (4-7) Last Admin: 12/26/17 08:32 Dose: 650 mg Albuterol/Ipratropium (Duoneb 3 Mg/0.5 Mg (3 Ml) Ud) 3 ml INH RQ6 [facility] Last Admin: 12/28/17 13:27 Dose: Not Given Artificial Tears (Artificial Tears) 0 ml OU QID PRN PRN Reason: Dry eyes Last Admin: 12/28/17 09:27 Dose: 1 drop Enoxaparin Sodium (Lovenox) 40 mg SC DAILY [facility] Last Admin: 12/23/17 10:42 Dose: Not Given Ampicillin 2 gm/ Sodium (Chloride) 100 mls @ 50 mls/hr IVPB Q6H [facility] PRN Reason: Protocol Last Admin: 12/28/17 13:30 Dose: 50 mls/hr Lorazepam (Ativan) 1 mg IVP Q6H PRN PRN Reason: Anxiety Losartan Potassium (Cozaar) 50 mg PO DAILY [facility] Last Admin: 12/28/17 09:27 Dose: 50 mg Metoprolol Succinate (Toprol Xl) 25 mg PO DAILY [facility] Last Admin: 12/28/17 09:27 Dose: 25 mg Multivitamins (Hexavitamin) 1 tab PO DAILY [facility] Last Admin: 12/28/17 09:27 Dose: 1 tab Rosuvastatin Calcium (Crestor) 5 mg PO HS [facility] Last Admin: 12/27/17 21:20 Dose: 5 mg Tamsulosin HCl (Flomax) 0.4 mg PO DAILY [facility] Last Admin: 12/28/17 09:27 Dose: 0.4 mg Thiamine HCl (Vitamin B1 Tab) 100 mg PO BID [facility] Last Admin: 12/28/17 09:29 Dose: 100 mg - Labs Labs: 12/28/17 11:18 12/28/17 06:32 PT 11.8 SECONDS (9.7-12.2) 12/20/17 14:47 INR 1.1 12/20/17 14:47 APTT 35 SECONDS (21-34) H 12/20/17 14:47 Assessment and Plan (1) Hip fracture Status: Acute (2) Accidental fall Status: Acute (3) Alcohol intoxication Status: Acute
--- NOTE | 2017-12-28 19:13 | CP.PCM.CON ---
History of Present Illness - History of Present Illness History of Present Illness: 62 year old male with a history of HTN, admitted s/p fall with hip fracture requiring pinning, found to have bone lesions concerning for metastasis and an elevated PSA. The patient reports to an unknown cancer that was treated with radiation. He thinks it was colon cancer but is not sure and is not sure where or who treated him. He notes to dancing and falling which led to his fall and fracture. He reports to drinking about 10 beers daily and was drinking on the day of his fall. A bone scan confirmed multiple bone lesions concerning for metastatic disease. A CT A/P revealed a cirrhotic appearing liver and sclerotic bone lesions. Past medical history: Unknown cancer tx about 7 years ago, HTN Past surgical history: Denies Family history: Denies hematologic and oncologic problems Social history: Denies tobacco, drinks 10 beers daily, worked in paint Allergies: NKA Review of systems: All remaining review of systems including HEENT, cardiovascular, respiratory, gastrointestinal, geniourinary, musculoskeletal, dermatologic, neurologic, and psychiatric are negative unless mentioned in the HPI. Past Patient History - Infectious Disease Hx of Infectious Diseases: None - Tetanus Immunizations Tetanus Immunization: Unknown - Past Medical History & Family History Past Medical History?: Yes - Past Social History Smoking Status: Former Smoker - CARDIAC Hx Cardiac Disorders: Yes Hx Hypertension: Yes - PULMONARY Hx Respiratory Disorders: Yes Other/Comment: hx pleural effusion - NEUROLOGICAL Hx Neurological Disorder: No - HEENT Hx HEENT Problems: Yes Other/Comment: wear reading eyeglasses - RENAL Hx Chronic Kidney Disease: No - ENDOCRINE/METABOLIC Hx Endocrine Disorders: No - HEMATOLOGICAL/ONCOLOGICAL Other/Comment: liver failure ----pt states he last drank beers 3 weeks ago - INTEGUMENTARY Hx Dermatological Problems: No - MUSCULOSKELETAL/RHEUMATOLOGICAL Hx Musculoskeletal Disorders: Yes Hx Falls: Yes (multiple) - GASTROINTESTINAL Hx Gastrointestinal Disorders: Yes Hx Liver Failure: Yes Other/Comment: alcohol abuse - GENITOURINARY/GYNECOLOGICAL Hx Genitourinary Disorders: No - PSYCHIATRIC Hx Substance Use: No - SURGICAL HISTORY Hx Surgeries: No Other/Comment: PT DENIES PER PATIENT - ANESTHESIA Hx Anesthesia: No Hx Anesthesia Reactions: No Meds Allergies/Adverse Reactions: Allergies Allergy/AdvReac Type Severity Reaction Status Date / Time No Known Allergies Allergy Verified 12/20/17 11:26 - Medications Medications: Current Medications Acetaminophen (Tylenol 325mg Tab) 650 mg PO Q6 PRN PRN Reason: Pain, moderate (4-7) Last Admin: 12/26/17 08:32 Dose: 650 mg Albuterol/Ipratropium (Duoneb 3 Mg/0.5 Mg (3 Ml) Ud) 3 ml INH RQ6 [facility] Last Admin: 12/28/17 13:27 Dose: Not Given Artificial Tears (Artificial Tears) 0 ml OU QID PRN PRN Reason: Dry eyes Last Admin: 12/28/17 09:27 Dose: 1 drop Enoxaparin Sodium (Lovenox) 40 mg SC DAILY [facility] Last Admin: 12/23/17 10:42 Dose: Not Given Ampicillin 2 gm/ Sodium (Chloride) 100 mls @ 50 mls/hr IVPB Q6H [facility] PRN Reason: Protocol Last Admin: 12/28/17 18:30 Dose: 50 mls/hr Lorazepam (Ativan) 1 mg IVP Q6H PRN PRN Reason: Anxiety Losartan Potassium (Cozaar) 50 mg PO DAILY [facility] Last Admin: 12/28/17 09:27 Dose: 50 mg Metoprolol Succinate (Toprol Xl) 25 mg PO DAILY [facility] Last Admin: 12/28/17 09:27 Dose: 25 mg Multivitamins (Hexavitamin) 1 tab PO DAILY [facility] Last Admin: 12/28/17 09:27 Dose: 1 tab Rosuvastatin Calcium (Crestor) 5 mg PO HS [facility] Last Admin: 12/27/17 21:20 Dose: 5 mg Tamsulosin HCl (Flomax) 0.4 mg PO DAILY [facility] Last Admin: 12/28/17 09:27 Dose: 0.4 mg Thiamine HCl (Vitamin B1 Tab) 100 mg PO BID [facility] Last Admin: 12/28/17 18:30 Dose: 100 mg Physical Exam - Head Exam Head Exam: ATRAUMATIC - Eye Exam Eye Exam: Normal appearance - ENT Exam ENT Exam: Mucous Membranes Dry - Respiratory Exam Respiratory Exam: NORMAL BREATHING PATTERN - Cardiovascular Exam Cardiovascular Exam: +S1, +S2 - GI/Abdominal Exam GI & Abdominal Exam: Normal Bowel Sounds Results - Vital Signs Recent Vital Signs: Last Vital Signs Temp 99.9 F H 12/28/17 15:05 Pulse 64 12/28/17 15:05 Resp 20 12/28/17 15:05 BP 151/68 H 12/28/17 15:05 Pulse Ox 98 12/28/17 15:05 - Labs Result Diagrams: 12/28/17 11:18 12/28/17 06:32 Labs: Laboratory Results - last 24 hr 12/28/17 12/28/17 06:32 11:18 WBC 7.4 RBC 2.75 L Hgb 9.3 L Hct 27.0 L MCV 98.2 H D MCH 33.8 H MCHC 34.4 RDW 18.2 H Plt Count 177 MPV 7.9 Neut % (Auto) 52.1 Lymph % (Auto) 18.9 L [place] % (Auto) 23.4 H Eos % (Auto) 4.7 H Baso % (Auto) 0.9 Neut # (Auto) 3.8 Lymph # (Auto) 1.4 [place] # (Auto) 1.7 H Eos # (Auto) 0.3 Baso # (Auto) 0.1 Neutrophils % (Manual) 55 Band Neutrophils % 2 Lymphocytes % (Manual) 15 L Monocytes % (Manual) 24 H Eosinophils % (Manual) 3 Basophils % (Manual) 1 Platelet Estimate Normal Polychromasia Slight Hypochromasia (manual) Slight Anisocytosis (manual) Slight Sodium 137 Potassium 3.7 Chloride 106 Carbon Dioxide 20 L Anion Gap 15 BUN 12 Creatinine 0.7 L Est GFR ( Amer) > 60 Est GFR (Non-Af Amer) > 60 Random Glucose 83 Calcium 8.0 L Total Bilirubin 2.2 H Direct Bilirubin 0.9 H AST 55 ALT 34 Alkaline Phosphatase 120 Total Protein 5.7 L Albumin 2.4 L D Globulin 3.3 Albumin/Globulin Ratio 0.7 L Assessment & Plan (1) Bone lesion Assessment and Plan: radiographically appear as metastatic disease elevated PSA; ?metastatic prostate cancer given stated prior history of ? colon cancer, possible metastasis from this will add CEA discussed role of percutaneous bone lesion biopsy to establish malignancy and type; he deferred and would like to show me his prior cancer receords before deciding on a biopsy as an outpatient Status: Acute (2) PSA elevation Assessment and Plan: urology f/u possible outpatient percutaneous bone biopsy Status: Acute (3) Anemia Assessment and Plan: will check ferritin, retic count, b12, folate, FOBT to further characterize likely element of bone marrow suppression from alcohol further treatment recommendations based on above w/u discussed alcohol cessation with the patient Thank you for this interesting consult. Status: Acute
--- NOTE | 2017-12-28 22:23 | PN ---
DATE: SUBJECTIVE: The patient is seen. He is doing much better. He has no signs or symptoms of alcohol withdrawal and not also complaining of pain. He has been cooperative with physical therapy. He states that he might be going to [place] for subacute rehab this coming week. VITAL SIGNS: Temperature is 98.5, pulse 97, blood pressure 131/65, respirations 20, oxygen saturation 97%. REVIEW OF SYSTEMS: GENERAL: Alert and oriented x3, seen in his room. He is pleasant and cooperative. No signs or symptoms of alcohol withdrawal. He has been cooperative with the physical therapy staff, doing exercises. SKIN: No diaphoresis. HEENT: No headache or dizziness. NECK: Supple. RESPIRATORY: No dyspnea. CARDIOVASCULAR: No chest pain. GASTROINTESTINAL: He is eating well. EXTREMITIES: Still has pain in his left hip, status post left hip surgery, but no other complaints. The patient has metastatic bone disease, probably from his prostate, but complaining of generalized pain. NEUROLOGIC: Alert and oriented x3. GENITOURINARY: No dysuria. MENTAL STATUS EXAMINATION: Elderly male, who looks stated age, seen in his room, pleasant in approach, oriented x3. Speech spontaneous. Affect is reactive. Thought process, coherent. Thought content, no hallucinations. No suicidal or homicidal ideation. Attention and memory seem to be improved. Insight and judgment improved. Impulse control is fair at this time. IMPRESSION: History of alcohol dependence, history of delirium secondary to alcohol withdrawal, much improved, history of fracture of the left hip, status post surgery as well as history of fall and history of metastatic bone disease. History of alcohol dependence; history of delirium secondary to alcohol withdrawal, much improved; history of fracture of the left hip, status post surgery; as well as history of fall and history of metastatic bone disease. PLAN AND RECOMMENDATIONS: The patient was seen, meds reviewed. Continue present management. The patient states he is not taking any more of the Ativan since he does not have the jitters. The patient is awaiting medical clearance to go for subacute rehab. Bird Elias MD
--- NOTE | 2017-12-28 23:54 | CP.PCM.PN ---
Subjective - Date & Time of Evaluation Date of Evaluation: 12/28/17 Time of Evaluation: 23:54 - Subjective Subjective: CHIEF COMPLAINTS TODAY : AFEBRILE C/O PAIN POST OPERATIVE SITE. SEEN BY ONCLOGIST FOR BONE LEISION ?METASTAIC DISEASE ?SITE PROSTATE ?COLON +ve foly ROS. HEENT : N. Resp : No cough, wheezing ,pleuritic CP ,or hemoptysis Cardio : No anginal CP, PND, orthopnea, palpitation GI : No abd.pain, n/v ,diarrhea or GI bleeding . LITERARY WRITER : No headache, vertigo, focal deficit. Musculoskel : No joint swelling , Derm : No rash Psych : Normal affect. Ext : No swelling ,calf pain Left thigh: soft, mild swelling, no erythema, calves soft , neg homans, venodynes applied, sensation intact +DP/PT pulses PE. Pt. is alert awake in no distress. V.S As noted in the chart Head ,ear nose,throat and eyes : Normal. Neck : Supple with normal carotids. Lungs: Clear air entry. Heart : S1 & S2 normal with S4. No murmur. Abd : Soft non tender with normal bowel sounds. Neuro : Moves all ext. with no localized deficit. Ext : No edema with intact pulses.Non tender calves Left thigh: soft, mild swelling, no erythema, calves soft , neg homans, venodynes applied, sensation intact +DP/PT pulses Derm : No rashes or decubitus ulcer. LABS/RADIOLOGY: REVIEWED REPEAT URINE CULTURE -VE GROWTH. Objective - Vital Signs/Intake and Output Vital Signs (last 24 hours): Temp Pulse Resp BP Pulse Ox 99.9 F H 64 20 151/68 H 98 12/28/17 15:05 12/28/17 15:05 12/28/17 15:05 12/28/17 15:05 12/28/17 15:05 Intake and Output: 12/28/17 12/29/17 18:59 06:59 Intake Total 440 Output Total 450 1800 Balance -450 -1360 - Medications Medications: Current Medications Acetaminophen (Tylenol 325mg Tab) 650 mg PO Q6 PRN PRN Reason: Pain, moderate (4-7) Last Admin: 12/26/17 08:32 Dose: 650 mg Albuterol/Ipratropium (Duoneb 3 Mg/0.5 Mg (3 Ml) Ud) 3 ml INH RQ6 [facility] Last Admin: 12/28/17 20:43 Dose: 3 ml Artificial Tears (Artificial Tears) 0 ml OU QID PRN PRN Reason: Dry eyes Last Admin: 12/28/17 09:27 Dose: 1 drop Enoxaparin Sodium (Lovenox) 40 mg SC DAILY [facility] Last Admin: 12/23/17 10:42 Dose: Not Given Ampicillin 2 gm/ Sodium (Chloride) 100 mls @ 50 mls/hr IVPB Q6H [facility] PRN Reason: Protocol Last Admin: 12/28/17 18:30 Dose: 50 mls/hr Lorazepam (Ativan) 1 mg IVP Q6H PRN PRN Reason: Anxiety Losartan Potassium (Cozaar) 50 mg PO DAILY [facility] Last Admin: 12/28/17 09:27 Dose: 50 mg Metoprolol Succinate (Toprol Xl) 25 mg PO DAILY [facility] Last Admin: 12/28/17 09:27 Dose: 25 mg Multivitamins (Hexavitamin) 1 tab PO DAILY [facility] Last Admin: 12/28/17 09:27 Dose: 1 tab Rosuvastatin Calcium (Crestor) 5 mg PO HS [facility] Last Admin: 12/28/17 22:23 Dose: 5 mg Tamsulosin HCl (Flomax) 0.4 mg PO DAILY [facility] Last Admin: 12/28/17 09:27 Dose: 0.4 mg Thiamine HCl (Vitamin B1 Tab) 100 mg PO BID [facility] Last Admin: 12/28/17 18:30 Dose: 100 mg - Labs Labs: 12/28/17 11:18 12/28/17 06:32 PT 11.8 SECONDS (9.7-12.2) 12/20/17 14:47 INR 1.1 12/20/17 14:47 APTT 35 SECONDS (21-34) H 12/20/17 14:47 Assessment and Plan (1) Pyelonephritis Assessment & Plan: - CONTINUE IV AMPICILLIN 2GM IVPB Q6 HRLY X 10 DAYS .12/26/17- -DAY5 - -MONITOR LFTS /RENAL FUNCTION Status: Acute (2) Closed intertrochanteric fracture of left femur Status: Acute (3) Hip fracture Status: Acute (4) Hematuria Status: Acute (5) Accidental fall Status: Acute (6) Alcohol intoxication Status: Acute (7) Right hip pain Status: Acute
[2017-12-29] MEDS: AMPicillin 2 GM in Sodium Chloride 100 ML IVPB SCH ×4 (01:10→18:45)
[2017-12-29] MEDS: Albuterol-Ipratrop 3 mg / 0.5 (3 ml) UD INH SCH ×4 (01:16→20:45)
[2017-12-29] MEDS: Multiple Vitamins Tab PO SCH (09:17)
[2017-12-29] MEDS: Metoprolol Succinate 25 mg XL Tab PO SCH (09:17)
--- NOTE | 2017-12-29 12:53 | PN ---
DATE: SUBJECTIVE: The patient seen. The patient is doing better. Not complaining of signs or symptoms of alcohol withdrawal and is being cooperative with physical therapy. The patient is looking forward to go for subacute rehab. The patient also reports he was seen by Dr. Addison, Oncologist. The patient reports he has a history of colon cancer in the past, he never had surgery, but patient states that he was treated for it. He mentions that he has a history of prostate cancer, currently followed by Dr. Addison. PHYSICAL EXAMINATION: VITAL SIGNS: Temperature is 99.3, pulse 86, blood pressure 141/77, respirations 20, oxygen saturation 97%. REVIEW OF SYSTEMS: GENERAL: The patient is alert and oriented x3, seen in his room, pleasant in approach. SKIN: No diaphoresis. HEENT: No headache. No dizziness. NECK: Supple. RESPIRATORY: No dyspnea. CARDIOVASCULAR: No chest pain. GASTROINTESTINAL: He is eating well. EXTREMITIES: The patient has mild pain in his left hip, the patient is status post surgery. He was also complaining yesterday of pins and needle sensation of his lower extremities which may be related to neuropathy, probably alcohol related as the patient has long history of alcoholism. NEUROLOGIC: Alert and oriented x3. GENITOURINARY: No dysuria. MENTAL STATUS EXAMINATION: Elderly male, who looks stated age, alert and oriented x3. Speech spontaneous. Affect is reactive. Mood is calm. Thought process, coherent. Thought content, no overt psychosis. No suicidal or homicidal ideation. The patient is manageable and cooperative. Attention and memory seem to be fair. Insight and judgment fair. Impulse control is fair. IMPRESSION: History of alcohol dependence; history of delirium secondary to alcohol withdrawal, much improved as well as history of fracture of the left hip. The patient also reports a history of colon cancer as well as the patient has metastatic bone disease. PLAN AND RECOMMENDATIONS: The patient was seen, meds reviewed. Continue present management. The patient is awaiting medical clearance to go for subacute rehab. The patient is followed by Dr. Addison for his cancer. Bird Elias MD
--- NOTE | 2017-12-29 23:26 | CP.PCM.PN ---
Subjective - Date & Time of Evaluation Date of Evaluation: 12/29/17 Time of Evaluation: 19:00 - Subjective Subjective: Pt is seen and examined Objective - Vital Signs/Intake and Output Vital Signs (last 24 hours): Temp Pulse Resp BP Pulse Ox 99.3 F 62 20 131/62 98 12/29/17 15:15 12/29/17 16:00 12/29/17 15:15 12/29/17 15:15 12/29/17 15:15 Intake and Output: 12/29/17 12/30/17 18:59 06:59 Intake Total 600 440 Output Total 1200 1150 Balance -600 -710 - Medications Medications: Current Medications Acetaminophen (Tylenol 325mg Tab) 650 mg PO Q6 PRN PRN Reason: Pain, moderate (4-7) Last Admin: 12/29/17 04:01 Dose: 650 mg Albuterol/Ipratropium (Duoneb 3 Mg/0.5 Mg (3 Ml) Ud) 3 ml INH RQ6 [facility] Last Admin: 12/29/17 20:45 Dose: Not Given Artificial Tears (Artificial Tears) 0 ml OU QID PRN PRN Reason: Dry eyes Last Admin: 12/28/17 09:27 Dose: 1 drop Enoxaparin Sodium (Lovenox) 40 mg SC DAILY [facility] Last Admin: 12/23/17 10:42 Dose: Not Given Ampicillin 2 gm/ Sodium (Chloride) 100 mls @ 50 mls/hr IVPB Q6H [facility] PRN Reason: Protocol Last Admin: 12/29/17 18:45 Dose: 50 mls/hr Lorazepam (Ativan) 1 mg IVP Q6H PRN PRN Reason: Anxiety Last Admin: 12/29/17 21:14 Dose: 1 mg Losartan Potassium (Cozaar) 50 mg PO DAILY [facility] Last Admin: 12/29/17 09:16 Dose: 50 mg Metoprolol Succinate (Toprol Xl) 25 mg PO DAILY [facility] Last Admin: 12/29/17 09:17 Dose: 25 mg Multivitamins (Hexavitamin) 1 tab PO DAILY [facility] Last Admin: 12/29/17 09:17 Dose: 1 tab Rosuvastatin Calcium (Crestor) 5 mg PO HS [facility] Last Admin: 12/29/17 21:14 Dose: 5 mg Tamsulosin HCl (Flomax) 0.4 mg PO DAILY [facility] Last Admin: 12/29/17 09:16 Dose: 0.4 mg Thiamine HCl (Vitamin B1 Tab) 100 mg PO BID [facility] Last Admin: 12/29/17 18:45 Dose: 100 mg - Labs Labs: 12/28/17 11:18 12/28/17 06:32 PT 11.8 SECONDS (9.7-12.2) 12/20/17 14:47 INR 1.1 12/20/17 14:47 APTT 35 SECONDS (21-34) H 12/20/17 14:47 Assessment and Plan (1) Hip fracture Status: Acute (2) Accidental fall Status: Acute (3) Alcohol intoxication Status: Acute
[2017-12-30] MEDS: AMPicillin 2 GM in Sodium Chloride 100 ML IVPB SCH ×4 (00:58→20:27)
[2017-12-30] MEDS: Albuterol-Ipratrop 3 mg / 0.5 (3 ml) UD INH SCH ×2 (01:15→07:48)
--- NOTE | 2017-12-30 06:28 | PN ---
DATE: The patient is a 62-year-old with history of prostate CA, has gross hematuria, after the catheter inserted, improved mildly today. The urine is light pinkish with no clots. Platelets were low. Recent PSA number went up to 14 and bone scan revealed bony mets disease, primarily affecting the axial skeleton. The patient do not remember if he was treated with any hormonal or not. Definitely, he has prostatic CA with metastasis and he required treatment. I asked to call Dr. Lazo to evaluate his treatment. Roshan Hogue MD
[2017-12-30 07:31] LABS: BASO # 0.1 K/uL (0.0-0.2); BASO % 1.5 % (0.0-2.0); EOS # 0.4 K/uL (0.0-0.7); EOS % 4.4 % (0.0-4.0); HEMOGLOBIN 9.4 g/dL (12.0-18.0); LYMPH # 1.5 K/uL (1.0-4.3); LYMPH % 18.9 % (20.0-40.0); MEAN CELL VOLUME 97.5 fL (80.0-94.0); MEAN CORPUSCULAR HGB CONC 34.9 g/dL (33.0-37.0); MEAN PLATELET VOLUME 7.9 fL (7.2-11.7); MONO # 1.8 K/uL (0.0-0.8); MONO % 21.9 % (0.0-10.0); NEUT # 4.3 K/uL (1.8-7.0); NEUT % 53.3 % (50.0-75.0); PLATELET COUNT 205 K/uL (130-400); RBC 2.77 Mil/uL (4.40-5.90); RED CELL DISTRIBUTION WIDTH 17.7 % (11.5-14.5); WHITE BLOOD COUNT 8.1 K/uL (4.8-10.8)
[2017-12-30 07:53] LABS: BLOOD UREA NITROGEN 13 mg/dL (9-20); GFR AFRICAN-AMERICAN > 60; GFR NON-AFRICAN AMERICAN > 60
[2017-12-30 09:44] LABS: ANISOCYTOSIS SLIGHT; EOSINOPHIL 8 % (0-4); LYMPHOCYTE 17 % (20-40); MONOCYTE 19 % (0-10); NEUTROPHIL 56 % (50-75); PLATELET ESTIMATE NORMAL (NORMAL); TOTAL CELLS COUNTED 100
[2017-12-30 09:47] LABS: HYPOCHROMIC SLIGHT; POLYCHROMIC SLIGHT
[2017-12-30] MEDS: Multiple Vitamins Tab PO SCH (10:34)
[2017-12-30] MEDS: Metoprolol Succinate 25 mg XL Tab PO SCH (10:34)
--- NOTE | 2017-12-30 12:38 | CP.PCM.PN ---
Subjective - Date & Time of Evaluation Date of Evaluation: 12/30/17 Time of Evaluation: 12:00 - Subjective Subjective: Treatment for enterococcus, apparently a past history of malignancy, high PSA with probable bony metastases, seen by oncology to work up prostatic malignancy Objective - Vital Signs/Intake and Output Vital Signs (last 24 hours): Temp Pulse Resp BP Pulse Ox 98.8 F 65 20 153/75 H 96 12/30/17 08:40 12/30/17 12:06 12/30/17 08:40 12/30/17 08:40 12/30/17 08:40 Intake and Output: 12/30/17 12/30/17 06:59 18:59 Intake Total 440 Output Total 1800 Balance -1360 - Medications Medications: Current Medications Acetaminophen (Tylenol 325mg Tab) 650 mg PO Q6 PRN PRN Reason: Pain, moderate (4-7) Last Admin: 12/29/17 04:01 Dose: 650 mg Albuterol/Ipratropium (Duoneb 3 Mg/0.5 Mg (3 Ml) Ud) 3 ml INH RQ6 [facility] Last Admin: 12/30/17 07:48 Dose: Not Given Artificial Tears (Artificial Tears) 0 ml OU QID PRN PRN Reason: Dry eyes Last Admin: 12/28/17 09:27 Dose: 1 drop Enoxaparin Sodium (Lovenox) 40 mg SC DAILY [facility] Last Admin: 12/23/17 10:42 Dose: Not Given Ampicillin 2 gm/ Sodium (Chloride) 100 mls @ 50 mls/hr IVPB Q6H [facility] PRN Reason: Protocol Last Admin: 12/30/17 06:33 Dose: 50 mls/hr Lorazepam (Ativan) 1 mg IVP Q6H PRN PRN Reason: Anxiety Last Admin: 12/29/17 21:14 Dose: 1 mg Losartan Potassium (Cozaar) 50 mg PO DAILY [facility] Last Admin: 12/30/17 10:34 Dose: 50 mg Metoprolol Succinate (Toprol Xl) 25 mg PO DAILY [facility] Last Admin: 12/30/17 10:34 Dose: 25 mg Multivitamins (Hexavitamin) 1 tab PO DAILY [facility] Last Admin: 12/30/17 10:34 Dose: 1 tab Rosuvastatin Calcium (Crestor) 5 mg PO HS [facility] Last Admin: 12/29/17 21:14 Dose: 5 mg Tamsulosin HCl (Flomax) 0.4 mg PO DAILY [facility] Last Admin: 12/30/17 10:34 Dose: 0.4 mg Thiamine HCl (Vitamin B1 Tab) 100 mg PO BID [facility] Last Admin: 12/30/17 10:34 Dose: 100 mg - Labs Labs: 12/30/17 07:17 12/30/17 07:17 PT 11.8 SECONDS (9.7-12.2) 12/20/17 14:47 INR 1.1 12/20/17 14:47 APTT 35 SECONDS (21-34) H 12/20/17 14:47 - Constitutional Appears: Non-toxic - Head Exam Head Exam: ATRAUMATIC - Eye Exam Eye Exam: EOMI - ENT Exam ENT Exam: Mucous Membranes Moist - Neck Exam Neck Exam: absent: Lymphadenopathy, Thyromegaly - Respiratory Exam Respiratory Exam: Clear to Ausculation Bilateral. absent: Rhonchi - Cardiovascular Exam Cardiovascular Exam: REGULAR RHYTHM, Murmur - GI/Abdominal Exam GI & Abdominal Exam: Normal Bowel Sounds. absent: Organomegaly - Rectal Exam Rectal Exam: Deferred - Extremities Exam Extremities Exam: Normal Capillary Refill. absent: Calf Tenderness - Neurological Exam Neurological Exam: Alert, Oriented x3 - Psychiatric Exam Psychiatric exam: Normal Mood - Skin Skin Exam: Dry Assessment and Plan (1) Hip fracture Status: Acute (2) Alcohol intoxication Status: Acute
--- NOTE | 2017-12-30 14:39 | PN ---
DATE: SUBJECTIVE: The patient continues to improve clinically. The patient was having some episodes of hematuria, which has resolved. The patient is on [place] cath. The patient also is awaiting to go for subacute rehab. Psychwise, he is stable, not exhibiting signs and symptoms of psychosis or alcohol withdrawal. PHYSICAL EXAMINATION: VITAL SIGNS: Temperature is 98.8, pulse 73, blood pressure 153/75, respirations 20, oxygen saturation is 96%. REVIEW OF SYSTEMS: GENERAL: He is alert and oriented x3, seen in his room, pleasant in approach. SKIN: No diaphoresis. HEENT: No headache. No dizziness. NECK: Supple. RESPIRATORY: No dyspnea. CARDIOVASCULAR: No chest pain. GASTROINTESTINAL: He is eating well. EXTREMITIES: No tremors. The patient has mild pain in the left lower extremity. The patient is status post hip surgery. He has been cooperative with physical therapy. MUSCULOSKELETAL: Weakness improving. NEUROLOGIC: Alert and oriented x3. GENITOURINARY: No urinary problems. No dysuria. MENTAL STATUS EXAMINATION: Elderly male, who looks stated age, seems close to baseline, oriented x3. Speech spontaneous. Affect is reactive. Mood is calm. Thought process, coherent. Thought content, no psychosis. No suicidal or homicidal ideation. Attention and memory seem to be fair. Insight and judgment fair. Impulse control is fair. IMPRESSION: History of alcohol dependence; alcohol withdrawal, much improved. The patient has history of metastatic bone cancer as well as history of fall, and history of left hip surgery. PLAN AND RECOMMENDATIONS: The patient was seen, meds reviewed. The patient is awaiting clearance to go for subacute rehab. The patient is followed by Dr. Addison for his cancer. Continue Ativan p.r.n. and thiamine as ordered. Bird Elias MD
--- NOTE | 2017-12-30 17:00 | CP.PCM.PN ---
Subjective - Date & Time of Evaluation Date of Evaluation: 12/30/17 Time of Evaluation: 16:59 - Subjective Subjective: Patient states left hip is improving. No complaints. He is motivated to get out of bed Objective - Vital Signs/Intake and Output Vital Signs (last 24 hours): Temp Pulse Resp BP Pulse Ox 100.2 F H 61 20 145/78 97 12/30/17 15:53 12/30/17 15:53 12/30/17 15:53 12/30/17 15:53 12/30/17 15:53 Intake and Output: 12/30/17 12/30/17 06:59 18:59 Intake Total 440 Output Total 1800 500 Balance -1360 -500 - Medications Medications: Current Medications Acetaminophen (Tylenol 325mg Tab) 650 mg PO Q6 PRN PRN Reason: Pain, moderate (4-7) Last Admin: 12/29/17 04:01 Dose: 650 mg Artificial Tears (Artificial Tears) 0 ml OU QID PRN PRN Reason: Dry eyes Last Admin: 12/28/17 09:27 Dose: 1 drop Enoxaparin Sodium (Lovenox) 40 mg SC DAILY [facility] Last Admin: 12/23/17 10:42 Dose: Not Given Ampicillin 2 gm/ Sodium (Chloride) 100 mls @ 50 mls/hr IVPB Q6H [facility] PRN Reason: Protocol Last Admin: 12/30/17 12:56 Dose: 50 mls/hr Lorazepam (Ativan) 1 mg IVP Q6H PRN PRN Reason: Anxiety Last Admin: 12/29/17 21:14 Dose: 1 mg Losartan Potassium (Cozaar) 50 mg PO DAILY [facility] Last Admin: 12/30/17 10:34 Dose: 50 mg Metoprolol Succinate (Toprol Xl) 25 mg PO DAILY [facility] Last Admin: 12/30/17 10:34 Dose: 25 mg Multivitamins (Hexavitamin) 1 tab PO DAILY [facility] Last Admin: 12/30/17 10:34 Dose: 1 tab Rosuvastatin Calcium (Crestor) 5 mg PO HS [facility] Last Admin: 12/29/17 21:14 Dose: 5 mg Tamsulosin HCl (Flomax) 0.4 mg PO DAILY [facility] Last Admin: 12/30/17 10:34 Dose: 0.4 mg Thiamine HCl (Vitamin B1 Tab) 100 mg PO BID [facility] Last Admin: 12/30/17 10:34 Dose: 100 mg - Labs Labs: 12/30/17 07:17 12/30/17 07:17 PT 11.8 SECONDS (9.7-12.2) 12/20/17 14:47 INR 1.1 12/20/17 14:47 APTT 35 SECONDS (21-34) H 12/20/17 14:47 - Extremities Exam Additional comments: Left thigh: soft, mild swelling, no erythema, calves soft Nt neg homans, venodynes applied, sensation intact +DP/PT pulses, dressing changed, incision clean dry intact Assessment and Plan (1) Closed intertrochanteric fracture of left femur Assessment & Plan: POD#8 s/p left hip IM nailing -PT/OT -d/c planning to rehab VTE proph, SCDs at all times, recommend resuming lovenox as soon as possible after hematuria resolved orthopedically stable d/w Dr. Pradhan, agrees with above f/u Dr. Prdahan 10-14 days upon discharge call for appointment [phone] Status: Acute
[2017-12-30] MEDS: Aritificial Tears (15ml) OU PRN (17:46)
[2017-12-30] MEDS: Enoxaparin 40 mg Syringe SC SCH (18:15)
--- NOTE | 2017-12-30 18:40 | CP.PCM.PN ---
Subjective - Date & Time of Evaluation Date of Evaluation: 12/30/17 Time of Evaluation: 18:40 - Subjective Subjective: CHIEF COMPLAINTS TODAY : TMAX 100.2 NO NEW COMPLAINTS SEEN BY ONCLOGIST FOR BONE LEISION ?METASTAIC DISEASE ?SITE PROSTATE ?COLON +ve foly ROS. HEENT : N. Resp : No cough, wheezing ,pleuritic CP ,or hemoptysis Cardio : No anginal CP, PND, orthopnea, palpitation GI : No abd.pain, n/v ,diarrhea or GI bleeding . CURVE CLEANER : No headache, vertigo, focal deficit. Musculoskel : No joint swelling , Derm : No rash Psych : Normal affect. Ext : No swelling ,calf pain Left thigh: soft, mild swelling, no erythema, calves soft , neg homans, venodynes applied, sensation intact +DP/PT pulses PE. Pt. is alert awake in no distress. V.S As noted in the chart Head ,ear nose,throat and eyes : Normal. Neck : Supple with normal carotids. Lungs: Clear air entry. Heart : S1 & S2 normal with S4. No murmur. Abd : Soft non tender with normal bowel sounds. Neuro : Moves all ext. with no localized deficit. Ext : No edema with intact pulses.Non tender calves Left thigh: soft, mild swelling, no erythema, calves soft , neg homans, venodynes applied, sensation intact +DP/PT pulses Derm : No rashes or decubitus ulcer. LABS/RADIOLOGY: REVIEWED REPEAT URINE CULTURE -VE GROWTH. Objective - Vital Signs/Intake and Output Vital Signs (last 24 hours): Temp Pulse Resp BP Pulse Ox 100.2 F H 61 20 145/78 97 12/30/17 15:53 12/30/17 15:53 12/30/17 15:53 12/30/17 15:53 12/30/17 15:53 Intake and Output: 12/30/17 12/30/17 06:59 18:59 Intake Total 440 Output Total 1800 500 Balance -1360 -500 - Medications Medications: Current Medications Acetaminophen (Tylenol 325mg Tab) 650 mg PO Q6 PRN PRN Reason: Pain, moderate (4-7) Last Admin: 12/29/17 04:01 Dose: 650 mg Artificial Tears (Artificial Tears) 0 ml OU QID PRN PRN Reason: Dry eyes Last Admin: 12/30/17 17:46 Dose: 2 drop Enoxaparin Sodium (Lovenox) 40 mg SC DAILY [facility] Last Admin: 12/30/17 18:15 Dose: Not Given Ampicillin 2 gm/ Sodium (Chloride) 100 mls @ 50 mls/hr IVPB Q6H [facility] PRN Reason: Protocol Last Admin: 12/30/17 12:56 Dose: 50 mls/hr Lorazepam (Ativan) 1 mg IVP Q6H PRN PRN Reason: Anxiety Last Admin: 12/29/17 21:14 Dose: 1 mg Losartan Potassium (Cozaar) 50 mg PO DAILY [facility] Last Admin: 12/30/17 10:34 Dose: 50 mg Metoprolol Succinate (Toprol Xl) 25 mg PO DAILY [facility] Last Admin: 12/30/17 10:34 Dose: 25 mg Multivitamins (Hexavitamin) 1 tab PO DAILY [facility] Last Admin: 12/30/17 10:34 Dose: 1 tab Rosuvastatin Calcium (Crestor) 5 mg PO HS [facility] Last Admin: 12/29/17 21:14 Dose: 5 mg Tamsulosin HCl (Flomax) 0.4 mg PO DAILY [facility] Last Admin: 12/30/17 10:34 Dose: 0.4 mg Thiamine HCl (Vitamin B1 Tab) 100 mg PO BID [facility] Last Admin: 12/30/17 17:46 Dose: 100 mg - Labs Labs: 12/30/17 07:17 12/30/17 07:17 PT 11.8 SECONDS (9.7-12.2) 12/20/17 14:47 INR 1.1 12/20/17 14:47 APTT 35 SECONDS (21-34) H 12/20/17 14:47 Assessment and Plan (1) Pyelonephritis Assessment & Plan: CONTINUE IV AMPICILLIN 2GM IVPB Q6 [facility] X 10 DAYS .12/26/17- -DAY5 - -MONITOR LFTS /RENAL FUNCTION Status: Acute (2) Closed intertrochanteric fracture of left femur Status: Acute (3) Hip fracture Status: Acute (4) Hematuria Status: Acute (5) Accidental fall Status: Acute (6) Alcohol intoxication Status: Acute (7) Right hip pain Status: Acute
--- NOTE | 2017-12-30 21:51 | CP.PCM.PN ---
Subjective - Date & Time of Evaluation Date of Evaluation: 12/30/17 Time of Evaluation: 19:35 - Subjective Subjective: Feeling better. Objective - Vital Signs/Intake and Output Vital Signs (last 24 hours): Temp Pulse Resp BP Pulse Ox 100.2 F H 61 20 145/78 97 12/30/17 15:53 12/30/17 15:53 12/30/17 15:53 12/30/17 15:53 12/30/17 15:53 Intake and Output: 12/30/17 12/31/17 18:59 06:59 Output Total 500 Balance -500 - Medications Medications: Current Medications Acetaminophen (Tylenol 325mg Tab) 650 mg PO Q6 PRN PRN Reason: Pain, moderate (4-7) Last Admin: 12/29/17 04:01 Dose: 650 mg Artificial Tears (Artificial Tears) 0 ml OU QID PRN PRN Reason: Dry eyes Last Admin: 12/30/17 17:46 Dose: 2 drop Enoxaparin Sodium (Lovenox) 40 mg SC DAILY [facility] Last Admin: 12/30/17 18:15 Dose: Not Given Ampicillin 2 gm/ Sodium (Chloride) 100 mls @ 50 mls/hr IVPB Q6H [facility] PRN Reason: Protocol Last Admin: 12/30/17 20:27 Dose: 50 mls/hr Lorazepam (Ativan) 1 mg IVP Q6H PRN PRN Reason: Anxiety Last Admin: 12/29/17 21:14 Dose: 1 mg Losartan Potassium (Cozaar) 50 mg PO DAILY [facility] Last Admin: 12/30/17 10:34 Dose: 50 mg Metoprolol Succinate (Toprol Xl) 25 mg PO DAILY [facility] Last Admin: 12/30/17 10:34 Dose: 25 mg Multivitamins (Hexavitamin) 1 tab PO DAILY [facility] Last Admin: 12/30/17 10:34 Dose: 1 tab Rosuvastatin Calcium (Crestor) 5 mg PO HS [facility] Last Admin: 12/30/17 21:33 Dose: 5 mg Tamsulosin HCl (Flomax) 0.4 mg PO DAILY [facility] Last Admin: 12/30/17 10:34 Dose: 0.4 mg Thiamine HCl (Vitamin B1 Tab) 100 mg PO BID [facility] Last Admin: 12/30/17 17:46 Dose: 100 mg - Labs Labs: 12/30/17 07:17 12/30/17 07:17 PT 11.8 SECONDS (9.7-12.2) 12/20/17 14:47 INR 1.1 12/20/17 14:47 APTT 35 SECONDS (21-34) H 12/20/17 14:47 - Head Exam Head Exam: ATRAUMATIC - Eye Exam Eye Exam: Normal appearance - ENT Exam ENT Exam: Mucous Membranes Dry - Respiratory Exam Respiratory Exam: NORMAL BREATHING PATTERN - Cardiovascular Exam Cardiovascular Exam: +S1, +S2 - GI/Abdominal Exam GI & Abdominal Exam: Normal Bowel Sounds Assessment and Plan (1) Bone lesion Assessment & Plan: radiographically appear as metastatic disease elevated PSA; ?metastatic prostate cancer given stated prior history of ? colon cancer, possible metastasis from this f/u CEA discussed role of percutaneous bone lesion biopsy to establish malignancy and type; he deferred and would like to show me his prior cancer records before deciding on a biopsy as an outpatient Status: Acute (2) PSA elevation Assessment & Plan: urology f/u possible outpatient percutaneous bone biopsy Status: Acute (3) Anemia Assessment & Plan: f/u ferritin, retic count, b12, folate, FOBT to further characterize likely element of bone marrow suppression from alcohol further treatment recommendations based on above w/u discussed alcohol cessation with the patient Status: Acute
--- NOTE | 2017-12-30 23:31 | CP.PCM.PN ---
Subjective - Date & Time of Evaluation Date of Evaluation: 12/30/17 Time of Evaluation: 19:00 - Subjective Subjective: pt seen and examined Objective - Vital Signs/Intake and Output Vital Signs (last 24 hours): Temp Pulse Resp BP Pulse Ox 100.2 F H 64 20 145/78 97 12/30/17 15:53 12/30/17 21:10 12/30/17 15:53 12/30/17 15:53 12/30/17 15:53 Intake and Output: 12/30/17 12/31/17 18:59 06:59 Output Total 500 1100 Balance -500 -1100 - Medications Medications: Current Medications Acetaminophen (Tylenol 325mg Tab) 650 mg PO Q6 PRN PRN Reason: Pain, moderate (4-7) Last Admin: 12/30/17 23:05 Dose: 650 mg Artificial Tears (Artificial Tears) 0 ml OU QID PRN PRN Reason: Dry eyes Last Admin: 12/30/17 17:46 Dose: 2 drop Enoxaparin Sodium (Lovenox) 40 mg SC DAILY [facility] Last Admin: 12/30/17 18:15 Dose: Not Given Ampicillin 2 gm/ Sodium (Chloride) 100 mls @ 50 mls/hr IVPB Q6H [facility] PRN Reason: Protocol Last Admin: 12/30/17 20:27 Dose: 50 mls/hr Lorazepam (Ativan) 1 mg IVP Q6H PRN PRN Reason: Anxiety Last Admin: 12/29/17 21:14 Dose: 1 mg Losartan Potassium (Cozaar) 50 mg PO DAILY [facility] Last Admin: 12/30/17 10:34 Dose: 50 mg Metoprolol Succinate (Toprol Xl) 25 mg PO DAILY [facility] Last Admin: 12/30/17 10:34 Dose: 25 mg Multivitamins (Hexavitamin) 1 tab PO DAILY [facility] Last Admin: 12/30/17 10:34 Dose: 1 tab Rosuvastatin Calcium (Crestor) 5 mg PO HS [facility] Last Admin: 12/30/17 21:33 Dose: 5 mg Tamsulosin HCl (Flomax) 0.4 mg PO DAILY [facility] Last Admin: 12/30/17 10:34 Dose: 0.4 mg Thiamine HCl (Vitamin B1 Tab) 100 mg PO BID [facility] Last Admin: 12/30/17 17:46 Dose: 100 mg - Labs Labs: 12/30/17 07:17 12/30/17 07:17 PT 11.8 SECONDS (9.7-12.2) 12/20/17 14:47 INR 1.1 12/20/17 14:47 APTT 35 SECONDS (21-34) H 12/20/17 14:47 Assessment and Plan (1) Hip fracture Status: Acute (2) Accidental fall Status: Acute (3) Alcohol intoxication Status: Acute
[2017-12-31] MEDS: AMPicillin 2 GM in Sodium Chloride 100 ML IVPB SCH ×4 (01:02→19:27)
[2017-12-31 08:10] LABS: BASO # 0.2 K/uL (0.0-0.2); BASO % 2.2 % (0.0-2.0); EOS # 0.3 K/uL (0.0-0.7); EOS % 4.5 % (0.0-4.0); HEMOGLOBIN 9.5 g/dL (12.0-18.0); LYMPH # 1.3 K/uL (1.0-4.3); LYMPH % 18.1 % (20.0-40.0); MEAN CELL VOLUME 98.6 fL (80.0-94.0); MEAN CORPUSCULAR HEMOGLOBIN 33.7 pg (27.0-31.0); MEAN CORPUSCULAR HGB CONC 34.2 g/dL (33.0-37.0); MEAN PLATELET VOLUME 7.9 fL (7.2-11.7); MONO # 1.5 K/uL (0.0-0.8); NEUT % 54.2 % (50.0-75.0); PLATELET COUNT 216 K/uL (130-400); RBC 2.81 Mil/uL (4.40-5.90); RED CELL DISTRIBUTION WIDTH 17.8 % (11.5-14.5); WHITE BLOOD COUNT 7.3 K/uL (4.8-10.8)
[2017-12-31 09:12] LABS: BANDS 2 % (0-2); BASOPHIL 2 % (0-2); EOSINOPHIL 8 % (0-4); LYMPHOCYTE 17 % (20-40); MONOCYTE 21 % (0-10); MYELOCYTE 3 % (0-0); NEUTROPHIL 47 % (50-75); PLATELET ESTIMATE NORMAL (NORMAL); TOTAL CELLS COUNTED 100
[2017-12-31 09:13] LABS: ANISOCYTOSIS SLIGHT; HYPOCHROMIC SLIGHT; POIKILOCYTOSIS SLIGHT; POLYCHROMIC SLIGHT
[2017-12-31] MEDS: Multiple Vitamins Tab PO SCH (09:35)
[2017-12-31] MEDS: Metoprolol Succinate 25 mg XL Tab PO SCH (09:35)
--- NOTE | 2017-12-31 09:41 | CP.PCM.PN ---
Subjective - Date & Time of Evaluation Date of Evaluation: 12/31/17 Time of Evaluation: 09:40 - Subjective Subjective: Patient states pain in hip is controlled. Denies CP/SOB/dizziness at this time. Tolerating PT well. Objective - Vital Signs/Intake and Output Vital Signs (last 24 hours): Temp Pulse Resp BP Pulse Ox 98.4 F 57 L 20 177/73 H 99 12/31/17 08:13 12/31/17 08:13 12/31/17 08:13 12/31/17 08:13 12/31/17 08:13 Intake and Output: 12/31/17 12/31/17 06:59 18:59 Output Total 2425 Balance -2425 - Medications Medications: Current Medications Acetaminophen (Tylenol 325mg Tab) 650 mg PO Q6 PRN PRN Reason: Pain, moderate (4-7) Last Admin: 12/30/17 23:05 Dose: 650 mg Artificial Tears (Artificial Tears) 0 ml OU QID PRN PRN Reason: Dry eyes Last Admin: 12/30/17 17:46 Dose: 2 drop Enoxaparin Sodium (Lovenox) 40 mg SC DAILY [facility] Last Admin: 12/30/17 18:15 Dose: Not Given Ampicillin 2 gm/ Sodium (Chloride) 100 mls @ 50 mls/hr IVPB Q6H [facility] PRN Reason: Protocol Last Admin: 12/31/17 06:36 Dose: 50 mls/hr Lorazepam (Ativan) 1 mg IVP Q6H PRN PRN Reason: Anxiety Last Admin: 12/29/17 21:14 Dose: 1 mg Losartan Potassium (Cozaar) 50 mg PO DAILY [facility] Last Admin: 12/31/17 09:35 Dose: 50 mg Metoprolol Succinate (Toprol Xl) 25 mg PO DAILY [facility] Last Admin: 12/31/17 09:35 Dose: 25 mg Multivitamins (Hexavitamin) 1 tab PO DAILY [facility] Last Admin: 12/31/17 09:35 Dose: 1 tab Rosuvastatin Calcium (Crestor) 5 mg PO HS [facility] Last Admin: 12/30/17 21:33 Dose: 5 mg Tamsulosin HCl (Flomax) 0.4 mg PO DAILY [facility] Last Admin: 12/31/17 09:35 Dose: 0.4 mg Thiamine HCl (Vitamin B1 Tab) 100 mg PO BID [facility] Last Admin: 12/30/17 17:46 Dose: 100 mg - Labs Labs: 12/31/17 08:01 12/30/17 07:17 PT 11.8 SECONDS (9.7-12.2) 12/20/17 14:47 INR 1.1 12/20/17 14:47 APTT 35 SECONDS (21-34) H 12/20/17 14:47 - Extremities Exam Additional comments: Left thigh: soft, mild swelling, no erythema, calves soft Nt neg homans, venodynes applied, sensation intact +DP/PT pulses, dressing changed, incision clean dry intact Assessment and Plan (1) Closed intertrochanteric fracture of left femur Assessment & Plan: POD#9 s/p left hip IM nailing -PT/OT -d/c planning to rehab VTE proph, SCDs at all times, lovenox orthopedically stable d/w Dr. Pradhan, agrees with above f/u Dr. Pradhan 10-14 days upon discharge call for appointment [phone] Status: Acute
--- NOTE | 2017-12-31 11:57 | CP.PCM.PN ---
Subjective - Date & Time of Evaluation Date of Evaluation: 12/31/17 Time of Evaluation: 12:00 - Subjective Subjective: Feels better, doing well on physical therapy, oncology workup as outpatient. Improved with treatment of sepsis. Objective - Vital Signs/Intake and Output Vital Signs (last 24 hours): Temp Pulse Resp BP Pulse Ox 98.4 F 57 L 20 177/73 H 99 12/31/17 08:13 12/31/17 08:13 12/31/17 08:13 12/31/17 08:13 12/31/17 08:13 Intake and Output: 12/31/17 12/31/17 06:59 18:59 Output Total 2425 Balance -2425 - Medications Medications: Current Medications Acetaminophen (Tylenol 325mg Tab) 650 mg PO Q6 PRN PRN Reason: Pain, moderate (4-7) Last Admin: 12/30/17 23:05 Dose: 650 mg Artificial Tears (Artificial Tears) 0 ml OU QID PRN PRN Reason: Dry eyes Last Admin: 12/30/17 17:46 Dose: 2 drop Enoxaparin Sodium (Lovenox) 40 mg SC DAILY [facility] Last Admin: 12/30/17 18:15 Dose: Not Given Ampicillin 2 gm/ Sodium (Chloride) 100 mls @ 50 mls/hr IVPB Q6H [facility] PRN Reason: Protocol Last Admin: 12/31/17 06:36 Dose: 50 mls/hr Lorazepam (Ativan) 1 mg IVP Q6H PRN PRN Reason: Anxiety Last Admin: 12/29/17 21:14 Dose: 1 mg Losartan Potassium (Cozaar) 50 mg PO DAILY [facility] Last Admin: 12/31/17 09:35 Dose: 50 mg Metoprolol Succinate (Toprol Xl) 25 mg PO DAILY [facility] Last Admin: 12/31/17 09:35 Dose: 25 mg Multivitamins (Hexavitamin) 1 tab PO DAILY [facility] Last Admin: 12/31/17 09:35 Dose: 1 tab Rosuvastatin Calcium (Crestor) 5 mg PO HS [facility] Last Admin: 12/30/17 21:33 Dose: 5 mg Tamsulosin HCl (Flomax) 0.4 mg PO DAILY [facility] Last Admin: 12/31/17 09:35 Dose: 0.4 mg Thiamine HCl (Vitamin B1 Tab) 100 mg PO BID [facility] Last Admin: 12/30/17 17:46 Dose: 100 mg - Labs Labs: 12/31/17 08:01 12/30/17 07:17 PT 11.8 SECONDS (9.7-12.2) 12/20/17 14:47 INR 1.1 12/20/17 14:47 APTT 35 SECONDS (21-34) H 12/20/17 14:47 - Constitutional Appears: Non-toxic - Head Exam Head Exam: ATRAUMATIC - Eye Exam Eye Exam: EOMI - ENT Exam ENT Exam: Mucous Membranes Moist - Neck Exam Neck Exam: absent: Lymphadenopathy, Thyromegaly - Respiratory Exam Respiratory Exam: Clear to Ausculation Bilateral. absent: Rales - Cardiovascular Exam Cardiovascular Exam: REGULAR RHYTHM, Murmur - GI/Abdominal Exam GI & Abdominal Exam: Normal Bowel Sounds. absent: Organomegaly - Rectal Exam Rectal Exam: Deferred - Extremities Exam Extremities Exam: Normal Capillary Refill. absent: Calf Tenderness - Neurological Exam Neurological Exam: Oriented x3. absent: Alert - Psychiatric Exam Psychiatric exam: Normal Affect - Skin Skin Exam: Dry Assessment and Plan (1) Hip fracture Status: Acute (2) Alcohol intoxication Status: Acute
--- NOTE | 2017-12-31 13:07 | PN ---
SUBJECTIVE: The patient is seen. The patient is doing much better, awaiting medical clearance to go for subacute rehab. He said he likes to stay in the hospital. Psych sanchez, he is stable. OBJECTIVE: VITAL SIGNS: Temperature is 98.4, pulse 57, blood pressure is 157/72, respirations 20, oxygen saturation is 99%. According to the patient, he is doing much better. The patient has history of metastatic bone disease, followed by Dr. Addison. REVIEW OF SYSTEMS: GENERAL: The patient is alert, oriented x3, seen in his room. SKIN: No diaphoresis. HEENT: No headache or dizziness. NECK: Supple. RESPIRATORY: No dyspnea. CARDIOVASCULAR: No chest pain. GASTROINTESTINAL: He is eating well. EXTREMITIES: The patient has pain in his left hip, the patient is status post surgery. MUSCULOSKELETAL: Feels weak. NEURO: Alert, and oriented x3. GENITOURINARY: No urinary problem. MENTAL STATUS EXAMINATION: Elderly male, who looks stated age, alert and oriented x3. Mood is dysphoric. Affect is reactive. Speech is spontaneous. Thought process is coherent. Thought content, no psychosis. No suicidal or homicidal ideation. Attention and memory seem to be fair. Insight and judgment fair. Impulse control is fair. IMPRESSION: History of alcohol dependence, alcohol withdrawal with delirium, improved as well as history of fall, history of left hip fracture status post surgery, history of metastatic bone disease. The patient has reported history of colon cancer in the past and possible prostate. PLAN AND RECOMMENDATIONS: The patient is seen, meds reviewed. Continue present management. Continue treatment plan. The patient is awaiting medical clearance to go for subacute rehab. Bird Elias MD [facility]
--- NOTE | 2017-12-31 20:11 | CP.PCM.PN ---
Subjective - Date & Time of Evaluation Date of Evaluation: 12/31/17 Time of Evaluation: 13:45 - Subjective Subjective: Has some hip pain. Objective - Vital Signs/Intake and Output Vital Signs (last 24 hours): Temp Pulse Resp BP Pulse Ox 98.7 F 58 L 18 133/71 97 12/31/17 15:50 12/31/17 16:31 12/31/17 15:50 12/31/17 15:50 12/31/17 15:50 Intake and Output: 12/31/17 01/01/18 18:59 06:59 Intake Total 480 Output Total 800 Balance -320 - Medications Medications: Current Medications Acetaminophen (Tylenol 325mg Tab) 650 mg PO Q6 PRN PRN Reason: Pain, moderate (4-7) Last Admin: 12/31/17 13:36 Dose: 650 mg Artificial Tears (Artificial Tears) 0 ml OU QID PRN PRN Reason: Dry eyes Last Admin: 12/30/17 17:46 Dose: 2 drop Enoxaparin Sodium (Lovenox) 40 mg SC DAILY [facility] Last Admin: 12/30/17 18:15 Dose: Not Given Ampicillin 2 gm/ Sodium (Chloride) 100 mls @ 50 mls/hr IVPB Q6H [facility]IE PRN Reason: Protocol Last Admin: 12/31/17 19:27 Dose: 50 mls/hr Lorazepam (Ativan) 1 mg IVP Q6H PRN PRN Reason: Anxiety Last Admin: 12/29/17 21:14 Dose: 1 mg Losartan Potassium (Cozaar) 50 mg PO DAILY [facility] Last Admin: 12/31/17 09:35 Dose: 50 mg Metoprolol Succinate (Toprol Xl) 25 mg PO DAILY [facility] Last Admin: 12/31/17 09:35 Dose: 25 mg Multivitamins (Hexavitamin) 1 tab PO DAILY [facility] Last Admin: 12/31/17 09:35 Dose: 1 tab Rosuvastatin Calcium (Crestor) 5 mg PO HS [facility] Last Admin: 12/30/17 21:33 Dose: 5 mg Tamsulosin HCl (Flomax) 0.4 mg PO DAILY [facility] Last Admin: 12/31/17 09:35 Dose: 0.4 mg Thiamine HCl (Vitamin B1 Tab) 100 mg PO BID [facility] Last Admin: 12/31/17 18:09 Dose: 100 mg - Labs Labs: 12/31/17 08:01 12/30/17 07:17 PT 11.8 SECONDS (9.7-12.2) 12/20/17 14:47 INR 1.1 12/20/17 14:47 APTT 35 SECONDS (21-34) H 12/20/17 14:47 - Head Exam Head Exam: ATRAUMATIC - Eye Exam Eye Exam: Normal appearance - ENT Exam ENT Exam: Mucous Membranes Dry - Respiratory Exam Respiratory Exam: NORMAL BREATHING PATTERN - Cardiovascular Exam Cardiovascular Exam: +S1, +S2 - GI/Abdominal Exam GI & Abdominal Exam: Normal Bowel Sounds Assessment and Plan (1) Bone lesion Assessment & Plan: radiographically appear as metastatic disease elevated PSA; ?metastatic prostate cancer given stated prior history of ? colon cancer, possible metastasis from this f/u CEA discussed role of percutaneous bone lesion biopsy to establish malignancy and type; he deferred and would like to show me his prior cancer records before deciding on a biopsy as an outpatient Status: Acute (2) PSA elevation Assessment & Plan: urology f/u possible outpatient percutaneous bone biopsy Status: Acute (3) Anemia Assessment & Plan: f/u ferritin, retic count, b12, folate, FOBT to further characterize likely element of bone marrow suppression from alcohol further treatment recommendations based on above w/u discussed alcohol cessation with the patient Status: Acute
--- NOTE | 2017-12-31 23:48 | CP.PCM.PN ---
Subjective - Date & Time of Evaluation Date of Evaluation: 12/31/17 Time of Evaluation: 20:00 Objective - Vital Signs/Intake and Output Vital Signs (last 24 hours): Temp Pulse Resp BP Pulse Ox 98.7 F 58 L 18 133/71 97 12/31/17 15:50 12/31/17 16:31 12/31/17 15:50 12/31/17 15:50 12/31/17 15:50 Intake and Output: 12/31/17 01/01/18 18:59 06:59 Intake Total 480 Output Total 800 700 Balance -320 -700 - Medications Medications: Current Medications Acetaminophen (Tylenol 325mg Tab) 650 mg PO Q6 PRN PRN Reason: Pain, moderate (4-7) Last Admin: 12/31/17 23:02 Dose: 650 mg Artificial Tears (Artificial Tears) 0 ml OU QID PRN PRN Reason: Dry eyes Last Admin: 12/30/17 17:46 Dose: 2 drop Enoxaparin Sodium (Lovenox) 40 mg SC DAILY [facility] Last Admin: 12/30/17 18:15 Dose: Not Given Ampicillin 2 gm/ Sodium (Chloride) 100 mls @ 50 mls/hr IVPB Q6H [facility] PRN Reason: Protocol Last Admin: 12/31/17 19:27 Dose: 50 mls/hr Lorazepam (Ativan) 1 mg IVP Q6H PRN PRN Reason: Anxiety Last Admin: 12/29/17 21:14 Dose: 1 mg Losartan Potassium (Cozaar) 50 mg PO DAILY [facility] Last Admin: 12/31/17 09:35 Dose: 50 mg Metoprolol Succinate (Toprol Xl) 25 mg PO DAILY [facility] Last Admin: 12/31/17 09:35 Dose: 25 mg Multivitamins (Hexavitamin) 1 tab PO DAILY [facility] Last Admin: 12/31/17 09:35 Dose: 1 tab Rosuvastatin Calcium (Crestor) 5 mg PO HS [facility] Last Admin: 12/31/17 21:43 Dose: 5 mg Tamsulosin HCl (Flomax) 0.4 mg PO DAILY [facility] Last Admin: 12/31/17 09:35 Dose: 0.4 mg Thiamine HCl (Vitamin B1 Tab) 100 mg PO BID [facility] Last Admin: 12/31/17 18:09 Dose: 100 mg - Labs Labs: 12/31/17 08:01 12/30/17 07:17 PT 11.8 SECONDS (9.7-12.2) 12/20/17 14:47 INR 1.1 12/20/17 14:47 APTT 35 SECONDS (21-34) H 12/20/17 14:47 Assessment and Plan (1) Hip fracture Status: Acute (2) Accidental fall Status: Acute (3) Alcohol intoxication Status: Acute
[2018-01-01 01:42] VITALS: RESP 20
[2018-01-01] MEDS: AMPicillin 2 GM in Sodium Chloride 100 ML IVPB SCH ×3 (01:49→15:05)
[2018-01-01 07:08] LABS: BASO # 0.2 K/uL (0.0-0.2); BASO % 1.9 % (0.0-2.0); EOS # 0.4 K/uL (0.0-0.7); EOS % 4.9 % (0.0-4.0); HEMOGLOBIN 9.4 g/dL (12.0-18.0); LYMPH # 1.4 K/uL (1.0-4.3); LYMPH % 16.6 % (20.0-40.0); MEAN CELL VOLUME 97.5 fL (80.0-94.0); MEAN CORPUSCULAR HEMOGLOBIN 33.6 pg (27.0-31.0); MEAN CORPUSCULAR HGB CONC 34.5 g/dL (33.0-37.0); MEAN PLATELET VOLUME 7.8 fL (7.2-11.7); MONO # 1.4 K/uL (0.0-0.8); MONO % 17.1 % (0.0-10.0); NEUT # 4.9 K/uL (1.8-7.0); NEUT % 59.5 % (50.0-75.0); RBC 2.79 Mil/uL (4.40-5.90); RED CELL DISTRIBUTION WIDTH 17.6 % (11.5-14.5); WHITE BLOOD COUNT 8.2 K/uL (4.8-10.8)
[2018-01-01 07:28] LABS: BLOOD UREA NITROGEN 14 mg/dL (9-20); CALCIUM 8.2 mg/dl (8.6-10.4); GFR AFRICAN-AMERICAN > 60; GFR NON-AFRICAN AMERICAN > 60
[2018-01-01] MEDS: Metoprolol Succinate 25 mg XL Tab PO SCH (09:18)
[2018-01-01] MEDS: Multiple Vitamins Tab PO SCH (09:18)
--- NOTE | 2018-01-01 12:01 | CP.PCM.PN ---
Subjective - Date & Time of Evaluation Date of Evaluation: 01/01/18 Time of Evaluation: 08:00 - Subjective Subjective: Patient states left hip continues to improve. No new complaints of hip. Objective - Vital Signs/Intake and Output Vital Signs (last 24 hours): Temp Pulse Resp BP Pulse Ox 98.9 F 67 20 136/69 98 01/01/18 08:18 01/01/18 08:18 01/01/18 08:18 01/01/18 08:18 01/01/18 08:18 Intake and Output: 01/01/18 01/01/18 06:59 18:59 Output Total 2300 Balance -2300 - Medications Medications: Current Medications Acetaminophen (Tylenol 325mg Tab) 650 mg PO Q6 PRN PRN Reason: Pain, moderate (4-7) Last Admin: 12/31/17 23:02 Dose: 650 mg Artificial Tears (Artificial Tears) 0 ml OU QID PRN PRN Reason: Dry eyes Last Admin: 12/30/17 17:46 Dose: 2 drop Enoxaparin Sodium (Lovenox) 40 mg SC DAILY [facility] Last Admin: 12/30/17 18:15 Dose: Not Given Ampicillin 2 gm/ Sodium (Chloride) 100 mls @ 50 mls/hr IVPB Q6H [facility] PRN Reason: Protocol Last Admin: 01/01/18 06:33 Dose: 50 mls/hr Lorazepam (Ativan) 1 mg IVP Q6H PRN PRN Reason: Anxiety Last Admin: 12/29/17 21:14 Dose: 1 mg Losartan Potassium (Cozaar) 50 mg PO DAILY [facility] Last Admin: 01/01/18 09:18 Dose: 50 mg Metoprolol Succinate (Toprol Xl) 25 mg PO DAILY [facility] Last Admin: 01/01/18 09:18 Dose: 25 mg Multivitamins (Hexavitamin) 1 tab PO DAILY [facility] Last Admin: 12/31/17 09:35 Dose: 1 tab Rosuvastatin Calcium (Crestor) 5 mg PO HS [facility] Last Admin: 12/31/17 21:43 Dose: 5 mg Tamsulosin HCl (Flomax) 0.4 mg PO DAILY [facility] Last Admin: 01/01/18 09:18 Dose: 0.4 mg Thiamine HCl (Vitamin B1 Tab) 100 mg PO BID [facility] Last Admin: 01/01/18 09:18 Dose: 100 mg - Labs Labs: 01/01/18 06:58 01/01/18 06:58 PT 11.8 SECONDS (9.7-12.2) 12/20/17 14:47 INR 1.1 12/20/17 14:47 APTT 35 SECONDS (21-34) H 12/20/17 14:47 - Extremities Exam Additional comments: Left thigh: soft, mild swelling, no erythema, calves soft Nt neg homans, venodynes applied, sensation intact +DP/PT pulses, dressing changed, incision clean dry intact Assessment and Plan (1) Closed intertrochanteric fracture of left femur Assessment & Plan: POD#10 s/p left hip IM nailing -PT/OT -d/c planning to rehab VTE proph, SCDs at all times, lovenox orthopedically stable d/w Dr. Pradhan, agrees with above f/u Dr. Pradhan 10-14 days upon discharge call for appointment [phone] Status: Acute
[2018-01-01] MEDS ORDERED: Potassium Chloride 20 mEq ER Tab PO STA (12:35)
--- NOTE | 2018-01-01 12:54 | CP.PCM.PN ---
Subjective - Date & Time of Evaluation Date of Evaluation: 01/01/18 Time of Evaluation: 12:00 - Subjective Subjective: Improved clinically, still with pain on physical therapy Objective - Vital Signs/Intake and Output Vital Signs (last 24 hours): Temp Pulse Resp BP Pulse Ox 98.9 F 67 20 136/69 98 01/01/18 08:18 01/01/18 08:18 01/01/18 08:18 01/01/18 08:18 01/01/18 08:18 Intake and Output: 01/01/18 01/01/18 06:59 18:59 Output Total 2300 Balance -2300 - Medications Medications: Current Medications Acetaminophen (Tylenol 325mg Tab) 650 mg PO Q6 PRN PRN Reason: Pain, moderate (4-7) Last Admin: 12/31/17 23:02 Dose: 650 mg Artificial Tears (Artificial Tears) 0 ml OU QID PRN PRN Reason: Dry eyes Last Admin: 12/30/17 17:46 Dose: 2 drop Enoxaparin Sodium (Lovenox) 40 mg SC DAILY [facility] Last Admin: 12/30/17 18:15 Dose: Not Given Ampicillin 2 gm/ Sodium (Chloride) 100 mls @ 50 mls/hr IVPB Q6H [facility] PRN Reason: Protocol Last Admin: 01/01/18 06:33 Dose: 50 mls/hr Lorazepam (Ativan) 1 mg IVP Q6H PRN PRN Reason: Anxiety Last Admin: 12/29/17 21:14 Dose: 1 mg Losartan Potassium (Cozaar) 50 mg PO DAILY [facility] Last Admin: 01/01/18 09:18 Dose: 50 mg Metoprolol Succinate (Toprol Xl) 25 mg PO DAILY [facility] Last Admin: 01/01/18 09:18 Dose: 25 mg Multivitamins (Hexavitamin) 1 tab PO DAILY [facility] Last Admin: 12/31/17 09:35 Dose: 1 tab Rosuvastatin Calcium (Crestor) 5 mg PO HS [facility] Last Admin: 12/31/17 21:43 Dose: 5 mg Tamsulosin HCl (Flomax) 0.4 mg PO DAILY [facility] Last Admin: 01/01/18 09:18 Dose: 0.4 mg Thiamine HCl (Vitamin B1 Tab) 100 mg PO BID [facility] Last Admin: 01/01/18 09:18 Dose: 100 mg - Labs Labs: 01/01/18 06:58 01/01/18 06:58 PT 11.8 SECONDS (9.7-12.2) 12/20/17 14:47 INR 1.1 12/20/17 14:47 APTT 35 SECONDS (21-34) H 12/20/17 14:47 - Constitutional Appears: Non-toxic - Head Exam Head Exam: ATRAUMATIC - Eye Exam Eye Exam: EOMI - ENT Exam ENT Exam: Mucous Membranes Moist - Neck Exam Neck Exam: absent: Lymphadenopathy, Thyromegaly - Respiratory Exam Respiratory Exam: Clear to Ausculation Bilateral. absent: Rales - Cardiovascular Exam Cardiovascular Exam: REGULAR RHYTHM, Murmur - GI/Abdominal Exam GI & Abdominal Exam: Normal Bowel Sounds. absent: Organomegaly - Rectal Exam Rectal Exam: Deferred - Extremities Exam Extremities Exam: Normal Capillary Refill. absent: Calf Tenderness - Neurological Exam Neurological Exam: Alert, Oriented x3 - Psychiatric Exam Psychiatric exam: Normal Mood - Skin Skin Exam: Dry Assessment and Plan (1) Hip fracture Status: Acute (2) Alcohol intoxication Status: Acute
--- NOTE | 2018-01-01 13:02 | CP.PCM.PN ---
Subjective - Date & Time of Evaluation Date of Evaluation: 01/01/18 Time of Evaluation: 11:00 - Subjective Subjective: patient seen today , denies nay chest pain, sob, abdominal pain, N/V/D a febrile f/c draing clear urine, no hematuria reported seen by Dr. Hogue today, recommends to d/c f/c and voiding trail , if pt voids and can be discharge to [facility] and f/u out patient in his office for cysto Objective - Vital Signs/Intake and Output Vital Signs (last 24 hours): Temp Pulse Resp BP Pulse Ox 98.9 F 67 20 136/69 98 01/01/18 08:18 01/01/18 08:18 01/01/18 08:18 01/01/18 08:18 01/01/18 08:18 Intake and Output: 01/01/18 01/01/18 06:59 18:59 Output Total 2300 Balance -2300 - Medications Medications: Current Medications Acetaminophen (Tylenol 325mg Tab) 650 mg PO Q6 PRN PRN Reason: Pain, moderate (4-7) Last Admin: 12/31/17 23:02 Dose: 650 mg Artificial Tears (Artificial Tears) 0 ml OU QID PRN PRN Reason: Dry eyes Last Admin: 12/30/17 17:46 Dose: 2 drop Enoxaparin Sodium (Lovenox) 40 mg SC DAILY [facility] Last Admin: 12/30/17 18:15 Dose: Not Given Ampicillin 2 gm/ Sodium (Chloride) 100 mls @ 50 mls/hr IVPB Q6H LORIE PRN Reason: Protocol Last Admin: 01/01/18 06:33 Dose: 50 mls/hr Lorazepam (Ativan) 1 mg IVP Q6H PRN PRN Reason: Anxiety Last Admin: 12/29/17 21:14 Dose: 1 mg Losartan Potassium (Cozaar) 50 mg PO DAILY [facility] Last Admin: 01/01/18 09:18 Dose: 50 mg Metoprolol Succinate (Toprol Xl) 25 mg PO DAILY [facility] Last Admin: 01/01/18 09:18 Dose: 25 mg Multivitamins (Hexavitamin) 1 tab PO DAILY [facility] Last Admin: 12/31/17 09:35 Dose: 1 tab Rosuvastatin Calcium (Crestor) 5 mg PO HS [facility] Last Admin: 12/31/17 21:43 Dose: 5 mg Tamsulosin HCl (Flomax) 0.4 mg PO DAILY [facility] Last Admin: 01/01/18 09:18 Dose: 0.4 mg Thiamine HCl (Vitamin B1 Tab) 100 mg PO BID [facility] Last Admin: 01/01/18 09:18 Dose: 100 mg - Labs Labs: 01/01/18 06:58 01/01/18 06:58 PT 11.8 SECONDS (9.7-12.2) 12/20/17 14:47 INR 1.1 12/20/17 14:47 APTT 35 SECONDS (21-34) H 12/20/17 14:47 Assessment and Plan - Assessment and Plan (Free Text) Assessment: A/P 62 yr old mal e admitted with LE pain , s/p mechanical fall and hip fx s/p left hip IM nailing,POD#10 seen by ortho today, recommends PT/OT and orthopedically stable for discharge to [facility] and f/u Dr. Fonseca 10-14 days upon discharge . montanez cath discontinued and pt voids without difficulty and no hematuria noted d/w Dr. Khan, stable ofr discharge patient to [facility] today Discharge plan discussed with patient , who understands and agrees with plan
[2018-01-01 15:52] VITALS: BP 137/70; PULSE 60; TEMP 98.3; O2SAT 100
--- NOTE | 2018-01-01 18:04 | PN ---
DATE: SUBJECTIVE: The patient is seen. The patient is still complaining of left hip pain. Other than that the patient is willing to go for subacute rehab. He is waiting for clearance to go for subacute rehab. The patient, however, is currently undergoing various medical tests ordered by Dr. Addison. The patient reports he has history of colon cancer, but unsure having prostate cancer. No signs of alcohol withdrawal noted. PHYSICAL EXAMINATION: VITAL SIGNS: Temperature is 98.9, pulse rate is 67, blood pressure is 136/69, respirations 20, oxygen saturation is 98%. REVIEW OF SYSTEMS: GENERAL: Alert and oriented x3, seen in his room, pleasant in approach. SKIN: No diaphoresis. HEENT: No headache. No dizziness. NECK: Supple. RESPIRATORY: No dyspnea. CARDIOVASCULAR: No chest pain. GASTROINTESTINAL: He is eating well. EXTREMITIES: He has mild left hip pain. The patient is status post surgery. NEUROLOGICAL: Alert and oriented x3. GENITOURINARY: No urinary problems. MUSCULOSKELETAL: Still feels weak. MENTAL STATUS EXAMINATION: An elderly man, who looks stated age, alert and oriented x3. Mood is calm. Affect is reactive. Speech is spontaneous. Thought process, coherent. Thought content, the patient is still willing to go for subacute rehab once medically cleared. No psychosis. No suicidal or homicidal ideations. Attention and memory seem to be fair. Insight and judgement fair. Impulse control is fair. IMPRESSION: History of alcohol dependence, alcohol withdrawal, much improved, as well as history of fall, of left hip fracture, status post surgery, history of colon cancer, as well as history of metastatic bone disease. PLAN AND RECOMMENDATIONS: The patient is seen, meds reviewed. Continue present management. Continue treatment plan. Continue psych meds as ordered. The patient is for subacute rehab once medically cleared. Bird Elias MD MTDD
--- NOTE | 2018-01-01 21:13 | CP.PCM.PN ---
Subjective - Date & Time of Evaluation Date of Evaluation: 01/01/18 Time of Evaluation: 12:00 - Subjective Subjective: Has some hip pain. Objective - Vital Signs/Intake and Output Vital Signs (last 24 hours): Temp Pulse Resp BP Pulse Ox 98.3 F 60 20 137/70 100 01/01/18 15:00 01/01/18 15:00 01/01/18 15:00 01/01/18 15:00 01/01/18 15:00 - Labs Labs: 01/01/18 06:58 01/01/18 06:58 PT 11.8 SECONDS (9.7-12.2) 12/20/17 14:47 INR 1.1 12/20/17 14:47 APTT 35 SECONDS (21-34) H 12/20/17 14:47 - Head Exam Head Exam: ATRAUMATIC - Eye Exam Eye Exam: Normal appearance - ENT Exam ENT Exam: Mucous Membranes Dry - Respiratory Exam Respiratory Exam: NORMAL BREATHING PATTERN - Cardiovascular Exam Cardiovascular Exam: +S1, +S2 - GI/Abdominal Exam GI & Abdominal Exam: Normal Bowel Sounds Assessment and Plan (1) Bone lesion Assessment & Plan: radiographically appear as metastatic disease elevated PSA; ?metastatic prostate cancer given stated prior history of ? colon cancer, possible metastasis from this f/u CE[facility] discussed role of percutaneous bone lesion biopsy to establish malignancy and type; he deferred and would like to show me his prior cancer records before deciding on a biopsy as an outpatient Status: Acute (2) PSA elevation Assessment & Plan: urology f/u possible outpatient percutaneous bone biopsy Status: Acute (3) Anemia Assessment & Plan: f/u ferritin, retic count, b12, folate, FOBT to further characterize likely element of bone marrow suppression from alcohol further treatment recommendations based on above w/u discussed alcohol cessation with the patient Status: Acute
--- NOTE | 2018-01-01 23:44 | CP.PCM.DIS ---
Provider - Provider Date of Admission: 12/20/17 13:40 Attending physician: Hilton Khan MD Time Spent in preparation of Discharge (in minutes): 55 Diagnosis - Discharge Diagnosis (1) Hip fracture Status: Acute (2) Accidental fall Status: Acute (3) Alcohol intoxication Status: Acute Hospital Course - Lab Results Lab Results: Micro Results 12/25/17 19:30 Blood Blood Culture - Final NO GROWTH AFTER 5 DAYS 12/25/17 19:30 Blood Gram Stain - Final TEST NOT PERFORMED 12/25/17 19:00 Blood Blood Culture - Final NO GROWTH AFTER 5 DAYS 12/25/17 19:00 Blood Gram Stain - Final TEST NOT PERFORMED 12/25/17 15:20 Urine,Montanez Urine Culture - Final No Growth (<1,000 CFU/ML) 12/22/17 21:35 Urine,Montanez Urine Culture - Final Enterococcus Faecalis Most Recent Lab Values WBC 8.2 K/uL (4.8-10.8) 01/01/18 06:58 RBC 2.79 Mil/uL (4.40-5.90) L 01/01/18 06:58 Hgb 9.4 g/dL (12.0-18.0) L 01/01/18 06:58 Hct 27.2 % (35.0-51.0) L 01/01/18 06:58 MCV 97.5 fL (80.0-94.0) H 01/01/18 06:58 MCH 33.6 pg (27.0-31.0) H 01/01/18 06:58 MCHC 34.5 g/dL (33.0-37.0) 01/01/18 06:58 RDW 17.6 % (11.5-14.5) H 01/01/18 06:58 Plt Count 269 K/uL (130-400) 01/01/18 06:58 MPV 7.8 fL (7.2-11.7) 01/01/18 06:58 Neut % (Auto) 59.5 % (50.0-75.0) 01/01/18 06:58 Lymph % (Auto) 16.6 % (20.0-40.0) L 01/01/18 06:58 [place] % (Auto) 17.1 % (0.0-10.0) H 01/01/18 06:58 Eos % (Auto) 4.9 % (0.0-4.0) H 01/01/18 06:58 Baso % (Auto) 1.9 % (0.0-2.0) 01/01/18 06:58 Neut # (Auto) 4.9 K/uL (1.8-7.0) 01/01/18 06:58 Lymph # (Auto) 1.4 K/uL (1.0-4.3) 01/01/18 06:58 [place] # (Auto) 1.4 K/uL (0.0-0.8) H 01/01/18 06:58 Eos # (Auto) 0.4 K/uL (0.0-0.7) 01/01/18 06:58 Baso # (Auto) 0.2 K/uL (0.0-0.2) 01/01/18 06:58 Neutrophils % (Manual) 47 % (50-75) L 12/31/17 08:01 Band Neutrophils % 2 % (0-2) 12/31/17 08:01 Lymphocytes % (Manual) 17 % (20-40) L 12/31/17 08:01 Reactive Lymphs % 1 % (0-0) H 12/26/17 08:06 Monocytes % (Manual) 21 % (0-10) H 12/31/17 08:01 Eosinophils % (Manual) 8 % (0-4) H 12/31/17 08:01 Basophils % (Manual) 2 % (0-2) 12/31/17 08:01 Myelocytes % 3 % (0-0) H 12/31/17 08:01 Differential Comment 12/20/17 14:47 Platelet Estimate Normal (NORMAL) 12/31/17 08:01 Polychromasia Slight 12/31/17 08:01 Hypochromasia (manual) Slight 12/31/17 08:01 Poikilocytosis (manual Slight 12/31/17 08:01 Anisocytosis (manual) Slight 12/31/17 08:01 Target Cells Slight 12/26/17 08:06 [place] Cells Slight 12/26/17 08:06 Retic Count 5.4 % (0.5-1.5) H D 12/31/17 08:01 PT 11.8 SECONDS (9.7-12.2) 12/20/17 14:47 INR 1.1 12/20/17 14:47 APTT 35 SECONDS (21-34) H 12/20/17 14:47 Sodium 138 mmol/L (132-148) 01/01/18 06:58 Potassium 3.5 mmol/L (3.6-5.2) L 01/01/18 06:58 Chloride 107 mmol/L (98-107) 01/01/18 06:58 Carbon Dioxide 22 mmol/L (22-30) 01/01/18 06:58 Anion Gap 13 (10-20) 01/01/18 06:58 BUN 14 mg/dL (9-20) 01/01/18 06:58 Creatinine 0.7 mg/dL (0.8-1.5) L 01/01/18 06:58 Est GFR ( Amer) > 60 01/01/18 06:58 Est GFR (Non-Af Amer) > 60 01/01/18 06:58 POC Glucose (mg/dL) 104 mg/dL (65-110) 12/27/17 11:59 Random Glucose 97 mg/dL (75-110) 01/01/18 06:58 Calcium 8.2 mg/dl (8.6-10.4) L 01/01/18 06:58 Ferritin 645.0 ng/mL 12/31/17 08:01 Total Bilirubin 2.2 mg/dL (0.2-1.3) H 12/28/17 06:32 Direct Bilirubin 0.9 mg/dL (0.0-0.4) H 12/28/17 06:32 AST 55 U/L (17-59) 12/28/17 06:32 ALT 34 U/L (21-72) 12/28/17 06:32 Alkaline Phosphatase 120 U/L (38-126) 12/28/17 06:32 Total Protein 5.7 g/dL (6.3-8.3) L 12/28/17 06:32 Albumin 2.4 g/dL (3.5-5.0) L D 12/28/17 06:32 Globulin 3.3 gm/dL (2.2-3.9) 12/28/17 06:32 Albumin/Globulin Ratio 0.7 (1.0-2.1) L 12/28/17 06:32 Prostate Specific Ag 14.7 ng/mL (0.00-4.0) H 12/25/17 19:56 Vitamin B12 978 pg/mL (239-931) H 12/31/17 08:01 25-OH Vitamin D Total 39.7 NG/ML (30.0-100.0) 12/24/17 11:12 Folate 18.0 ng/mL 12/31/17 08:01 Urine Color Tamika (YELLOW) 12/24/17 23:54 Urine Clarity Hazy (Clear) 12/24/17 23:54 Urine pH 6.0 (5.0-8.0) 12/24/17 23:54 Ur Specific [place] 1.019 (1.003-1.030) 12/24/17 23:54 Urine Protein 1+ mg/dL (NEGATIVE) H 12/24/17 23:54 Urine Glucose (UA) Normal mg/dL (Normal) 12/24/17 23:54 Urine Ketones Negative mg/dL (NEGATIVE) 12/24/17 23:54 Urine Blood 3+ (NEGATIVE) H 12/24/17 23:54 Urine Nitrate Negative (NEGATIVE) 12/24/17 23:54 Urine Bilirubin Negative (NEGATIVE) 12/24/17 23:54 Urine Urobilinogen 4.0 mg/dL (0.2-1.0) 12/24/17 23:54 Ur Leukocyte Esterase Trace [place]/uL (Negative) 12/24/17 23:54 Urine WBC (Auto) 31 /hpf (0-5) H 12/24/17 23:54 Urine RBC (Auto) 729 /hpf (0-3) H 12/24/17 23:54 Ur Squamous Epith Cells < 1 /hpf (0-5) 12/22/17 04:21 Urine Bacteria Rare (<OCC) 12/22/17 04:21 Granular Casts (Auto) 2 /lpf (0-1) 12/22/17 04:21 Blood Type O POSITIVE 12/21/17 20:35 Antibody Screen Negative 12/21/17 20:35 - Hospital Course Hospital Course: A/P 62 yr old mal e admitted with LE pain , s/p mechanical fall and hip fx s/p left hip IM nailing,POD#10 seen by ortho today, recommends PT/OT and orthopedically stable for discharge to [facility] and f/u Dr. Fonseca 10-14 days upon discharge . montanez cath discontinued and pt voids without difficulty and no hematuria noted stable for [facility], seen and examined by me Discharge plan discussed with patient , who understands and agrees with plan Discharge Exam - Head Exam Head Exam: ATRAUMATIC Discharge Plan - Follow Up Plan Condition: STABLE Disposition: REHAB FACILITY/REHAB UNIT Instructions: Hip Fracture (DC), Femur Fracture (DC), Open Reduction and Internal Fixation Surgery (DC), Managing Pain After Surgery Additional Instructions: Please admit patient under Dr. Khan service- call Dr. Khan upon patient arrival to the facility . Please f/u with Dr. Durham office in 10-14 days - call and make appointment and arrange transportation -call for appointment [phone] Please f/u with Dr. Addison office in 2 weeks- call and make appointment and arrange transportation Please f/u with Dr. Hogue office in 2-3 weeks - call and make appointment continue to Lovenox as ordered if noticed any hematuria hold and call Dr. Khan continue all other medications as per med. rec. SCD TO LE all times while in bed PLEASE DO CBC, BMP SATURDAY AND Q 3 DAYS Referrals: Brayden Addison MD [Staff Provider] - Kait Durham MD [Staff Provider] - Hilton Khan MD [Staff Provider] - Roshan Hogue MD [Staff Provider] -
--- NOTE | 2018-01-02 08:00 | PN ---
DATE: 01/01/2018 The patient has light bleeding. Wynne removed, on Flomax. After a few hours, he passed urine a few times without any clots or any active bleeding. The patient need followup for Lupron injection and he will trace where he has the biopsy done. Roshan Hogue MD
--- NOTE | 2018-01-02 08:11 | PN ---
DATE: 12/31/2017 The patient is a 62-year-old with mets to the bone; has hematuria, clear up today that is the day of 12/31/2017, started to bleed again. We will keep the catheter till tomorrow. If he continue to bleed, I will do a cystoscopy; otherwise, we will remove the Wynne. Roshan Hogue MD
--- NOTE | 2018-01-29 09:35 | PCM.SURG1 ---
Surgeon's Initial Post Op Note - Surgeon's Notes Surgeon: Kait Fonseca MD Senior Project Manager Engineering: Benigno Viramontes DPM, 1st yr podiatry resident Type of Anesthesia: General Endo Pre-Operative Diagnosis: Left hip displaced intertrochanteric/ basicervical hip fracture Operative Findings: Left hip displaced intertrochanteric/ basicervical hip fracture Post-Operative Diagnosis: Left hip displaced intertrochanteric/ basicervical hip fracture Operation Performed: Left hip displaced IT fx closed reduction and internal fixation with short hip nail/ TFNA Specimen/Specimens Removed: specimen= none. complications= none. implants= synthes short TFNA nail 11mm diam, helical blade 100mm length, distal interlocking screw 42 mm length/ 5.0 diam Estimated Blood Loss: EBL {In ML}: 100 Blood Products Given: PRBC Drains Used: No Drains Date of Surgery/Procedure: 12/22/17 Time of Surgery/Procedure: 08:00
--- NOTE | 2018-01-30 01:40 | OP ---
PROCEDURE DATE: 12/22/2017 PREOPERATIVE DIAGNOSIS: Left hip displaced intertrochanteric/basicervical hip fracture. POSTOPERATIVE DIAGNOSIS: Left hip displaced intertrochanteric/basicervical hip fracture. PROCEDURE: Left hip displaced intertrochanteric/basicervical hip fracture, closed reduction and internal fixation with short intramedullary hip nail/short TFNA. SPECIMENS: None. COMPLICATIONS: None. IMPLANTS: [employer] short TFNA 11 mm diameter nail, 100 mm length helical blade, distal interlocking screw x1 measuring 42 mm length by 5 mm diameter. ESTIMATED BLOOD LOSS: 100 mL. One unit of packed red blood cells were given intraoperatively at the discretion of anesthesia. DRAINS: None. SURGEON: Kait Fonseca MD CROSSING FLAGMAN: Benigno Viramontes, first year Podiatry Resident TYPE OF ANESTHESIA: General endotracheal anesthesia. COMPLICATIONS: None. DISPOSITION: The patient was extubated and transferred to PACU in stable condition and tolerated the procedure well. INDICATIONS FOR SURGERY: The patient is a 62-year-old male with past medical history significant for EtOH abuse who is well known to the [facility] ER staff with multiple admissions for falls and intoxication over the past few years. On 12/20/2017, he presented to the ER [facility] again with left hip pain and inability to ambulate after a fall. He stated that on 12/19/2017, he developed left hip pain after a mechanical fall. He stated that he was dancing with some friends when he slipped and fell. He has had difficulty with weightbearing on the left lower extremity and rates his pain as 10 out of 10. After evaluation by ER staff and review of imaging, he was diagnosed with a left hip displaced intertrochanteric/basicervical fracture, and he was admitted to the medical service under Dr. Hilton Khan for definitive care and management. Orthopedic consultation was placed, and I evaluated the patient as an inpatient on 12/21/2017. I reviewed the x-rays and CAT scan with the patient, demonstrating the displaced hip fracture. The patient is active at baseline without any assisted devices and is independently living at high level functioning. He was indicated for closed versus open reduction and internal fixation with a short versus long hip nail. The risks, benefits, and alternatives to the procedure were discussed at length with the patient with the risks including but not limited to infection, neurovascular damage, malunion, nonunion, failure of hardware, need for further surgery including conversion to total hip arthroplasty, development of blood clots including DVT and PE, development of chronic pain and disability, inability to return to preinjury level of activity and ambulation and independence, development of cardiopulmonary perioperative complications, anesthesias reactions including . After answering all of his questions, he stated that he understood the risks and wished to proceed with surgery. We used 12/21/2017 as a day to medically optimize and get cardiology clearance. Once we obtained medical optimization and cardiology clearance from consults, services, and the primary medical team, Dr. Hilton Khan, the patient was then placed on the add-on schedule for 12/22/2017 and underwent the procedure on 12/22/2017 successfully at [facility] PROCEDURE IN DETAIL: The patient was identified in the preoperative holding area and the left hip was marked for surgery. Once again as described above, the risks, benefits and alternatives to the procedure were discussed at length with the patient and informed consent was obtained. After a brief discussion with the anesthesia staff, perioperative IV antibiotics were administered, and the patient was taken to the operating room on his bed. An initial time-out was done with the surgeon, anesthesia staff, OR staff all in agreement with the patient, procedure being done, and the extremity being operated on. General anesthesia was administered without difficulty or complications in his bed. Once general anesthesia was administered successfully, the patient was then carefully transported to the fracture top table with all bony prominences and superficial neurovascular structures well padded. The left upper extremity was well padded with padding and secured across his chest. The right upper extremity was secured and well padded to an armboard. The right lower extremity was brought into flexion and abduction and well padded with gel padding and secured to the well-leg maurice. The left lower extremity was well padded at the foot and ankle and secured to the traction boot. Perineal post was in place and the patient was brought as far down to the perineal post as possible. A final time-out was done with the surgeon, anesthesia staff, OR staff, all in agreement with the patient, procedure being done and extremity being operated on. Initial biplanar fluoroscopic imaging was taken, showing and confirming the displaced basicervical/intertrochanteric hip fracture. A closed reduction maneuver was carried out after the final time out was completed successfully and biplanar fluoroscopic imaging and dynamic imaging confirmed that a near anatomic reduction was achieved in an acceptable position. Once we were happy with the fracture reduction, the left hip and thigh were prepped and draped in a standard sterile fashion. Entry points for the guidewire was identified at the tip of the greater trochanter and advanced percutaneously to the tip of the greater trochanter and good position confirmed on biplanar fluoroscopic imaging, down to the level of the lesser trochanter. A 3 cm incision was made at the entry point to the guidewire. The proximal reamer was then advanced over the guidewire with a soft tissue protector in position and the proximal path for the nail was reamed. Guidewire and the proximal reamer were removed and a short 11 mm nail from [employer] was then placed through the entry point successfully in a good position. The level of the helical blade path was then identified to be in a good position and the triple sleeve was assembled and connected to the guide. The triple sleeve for the helical blade was then brought down to the skin and the entry point at the skin was sharply incised to the skin down the subcutaneous tissue, down to the level of capsule while maintaining good hemostasis. Triple sleeve guide was then placed snuggly on the proximal femur lateral cortex, confirmed on biplanar fluoroscopic imaging. Guidewire was advanced, center to center on the femoral head through the femoral head neck in a good position. Length of the helical blade was then taken and a 100 mm length helical blade was selected. The cannulated drill was advanced over the guidewire to drill the path for the helical blade. Good tip to apex distance was maintained throughout the course of our treatments. A helical blade was successfully placed over the guidewire, center to center position on the femoral head in good position on the femoral head neck, while maintaining a good tip to apex distance. Once the helical blade was in good position, the traction was removed and compression was achieved across the fracture. The locking screw was then advanced until it was fully locked and turned one-half, turned in the opposite direction to allow for dynamic compression at the fracture as well. Once the helical blade was in good position and confirmed using biplanar fluoroscopic imaging, attention was then turned towards the distal interlocking screw. The triple sleeve for the distal interlocking screw was assembled, and the same incision for the helical blade was utilized. Triple sleeve was then placed snuggly on the lateral aspect of the proximal femoral cortex and the drill was advanced bicortically. Drill length and screw length were then measured and a 42 mm length by 5 diameter screw from [employer] was placed bicortically with good fixation achieved. Biplanar fluoroscopic imaging confirmed good screw length and a path that went through the nail. Once final imaging was taken confirming good positioning of the hardware as well as maintenance of an anatomic fracture reduction, all wounds were copiously irrigated. All wounds were reapproximated with #1 Vicryl suture for deep tissue followed by 2-0 Vicryl suture for subcutaneous tissue, followed by shameka for skin. Sterile dressings were applied, and then the patient was transported successfully and carefully back to his bed, where he was transported to PACU in stable condition and tolerated the procedure well after he was extubated. DISPOSITION: The patient will remain as an inpatient. He works with physical therapy, case management, and social security benefits interviewer to determine optimal placements. I will monitor his progress as an inpatient. He will be weightbearing as tolerated with no restrictions. Once he is stable for discharge to rehab facility, he will be discharged there and then follow up in my office within 1 week, and we will help him schedule an appointment upon discharge. Of note, on the patient's CAT scan, there was on my opinion a question of a possible lytic lesion or metastatic disease but there has been a possible pathologic fracture. The musculoskeletal radiologist read it as no evidence of pathology at the fracture site or metastatic disease. I insisted and ordered an MRI preoperatively which the patient refused adamantly on multiple attempts to get the MRI both on Saturday and Saturday. The patient refused on multiple occasions, despite me personally speaking to him on multiple occasions, trying to convince him to do the MRI, and I explained to him the importance of obtaining this information prior to the MRI. Due to the urgency of treating a hip fracture, we proceeded with the hip fracture fixation on 12/22/2017 with the patient refusing to undergo any preoperative MRI to rule out metastasis or pathologic fracture. DISPOSITION: The patient will remain as an inpatient to work with case management and social work and physical therapy to determine optimal placement. He will be weightbearing as tolerated to the left lower extremity with no restrictions. He will be started on DVT prophylaxis in the form of 40 mg once daily unless the primary medical team has other recommendations or would like to go with the stronger dosing. He will follow up in my office at [facility] after discharge and placement in a rehab facility within 1 week. I will monitor his progress as an inpatient. He will receive adequate pain control. Kait Fonseca MD
== END 2018-01-01 18:05 | DRG 481 ==
LOC: C.ER 11:15 → C.6T 13:40
PROVIDERS: ADMIT Internal Medicine; ATTEND Internal Medicine
PROC: 30233N0 Transfusion of Autologous Red Blood Cells into Peripheral Vein, Percutaneous Approach (ICD-10-PCS; 2017-12-22)
PROC: 6A550Z2 Pheresis of Platelets, Single (ICD-10-PCS; 2017-12-22)
PROC: 0QS636Z Reposition Right Upper Femur with Intramedullary Internal Fixation Device, Percutaneous Approach (ICD-10-PCS; principal; 2017-12-22 08:00)
DX: S72.142A Displaced intertrochanteric fracture of left femur, initial encounter for closed fracture (principal); F10.231 Alcohol dependence with withdrawal delirium; I10 Essential (primary) hypertension; N12 Tubulo-interstitial nephritis, not specified as acute or chronic; N39.0 Urinary tract infection, site not specified; C18.9 Malignant neoplasm of colon, unspecified; C79.51 Secondary malignant neoplasm of bone; Q61.5 Medullary cystic kidney; R31.0 Gross hematuria; N40.0 Benign prostatic hyperplasia without lower urinary tract symptoms; E78.5 Hyperlipidemia, unspecified; D64.9 Anemia, unspecified; K72.90 Hepatic failure, unspecified without coma; K80.20 Calculus of gallbladder without cholecystitis without obstruction; K70.30 Alcoholic cirrhosis of liver without ascites; B95.2 Enterococcus as the cause of diseases classified elsewhere; B96.89 Other specified bacterial agents as the cause of diseases classified elsewhere; W01.0XXA Fall on same level from slipping, tripping and stumbling without subsequent striking against object, initial encounter; Y93.41 Activity, dancing; Z85.038 Personal history of other malignant neoplasm of large intestine; Z91.81 History of falling; Z87.891 Personal history of nicotine dependence; N99.89 Other postprocedural complications and disorders of genitourinary system; Z85.46 Personal history of malignant neoplasm of prostate

== ENCOUNTER 2018-01-25 01:18 | Emergency (ER) | payer OTHER ==
[2018-01-25 01:19] VITALS: BMI 26.6
--- NOTE | 2018-01-25 02:05 | C.PDOC ---
History Of Present Illness 62 year old male presents to the ER with a complaint of left hip pain. Patient states he lost his balance while trying to go to the bathroom and fell on the ground. Patient reports he has a Hx of left femur fracture. Denies LOC, weakness , or numbness. - HPI Chief Complaint (Nursing): Trauma History Per: Patient History/Exam Limitations: no limitations Onset/Duration Of Symptoms: Hrs Injury Occurred (Timing): Just Before Arrival Location Of Injury: Left: Hip Recent travel outside of the [place] States: No - Fall Fall:Prior To Injury: Lost Balance Past Medical History Reviewed: Historical Data, Nursing Documentation, Vital Signs Vital Signs: Last Vital Signs Temp 98.2 F 01/25/18 04:30 Pulse 62 01/25/18 04:30 Resp 18 01/25/18 04:30 BP 163/72 H 01/25/18 04:30 Pulse Ox 99 01/25/18 04:30 - Medical History PMH: HTN - [facility] Procedures COLONOSCOPY (04/03/15) ESOPHAGOGASTRODUODENOSCOPY [EGD] W/CLOSED BIOPSY (04/03/15) PACKED CELL TRANSFUSION (04/03/15) VACCINATION NEC (05/08/15) Family History: States: Unknown Family Hx - Social History Hx Tobacco Use: No Hx Alcohol Use: Yes Hx Substance Use: No - Immunization History Hx Tetanus Toxoid Vaccination: Yes Hx Influenza Vaccination: Yes Hx Pneumococcal Vaccination: Yes Review Of Systems Musculoskeletal: Positive for: Other (Left hip pain) Neurological: Negative for: Weakness, Numbness, Other (LOC) Physical Exam - Physical Exam Appears: Non-toxic, Other (Alert, Conscious) Skin: Normal Color, Warm, Dry Head: Atraumatic, Normacephalic Eye(s): bilateral: Normal Inspection, PERRL, EOMI Oral Mucosa: Moist Neck: Normal, No Midline Cervical Tenderness, No Paracervical Tenderness, Supple Chest: Symmetrical, No Tenderness Cardiovascular: Rhythm Regular Respiratory: Normal Breath Sounds, No Rales, No Rhonchi, No Wheezing Gastrointestinal/Abdominal: Soft, No Tenderness Extremity: Tenderness (Left hip area, proximal left femur), Capillary Refill (< 2 seconds), No Deformity, No Swelling Neurological/Psych: Oriented x3, Normal Speech, Normal Motor, Normal Sensation, Other (No focal deficits) ED Course And Treatment O2 Sat by Pulse Oximetry: 100 (Room air) Pulse Ox Interpretation: Normal Progress Note: CT head and CT hip ordered. Ultram administered. Disposition Counseled Patient/Family Regarding: Diagnosis - Disposition Referrals: [facility] [Outside] Disposition: HOME/ ROUTINE Disposition Time: 04:42 Condition: STABLE Prescriptions: traMADol/Acetaminophen [Ultracet 325 MG-37.5 MG] 1 tab PO Q6 #20 tab Instructions: Hip Pain Forms: [facility] ([place]) - POA Present On Arrival: None - Clinical Impression Clinical Impression: Hip pain, Status post-operative repair of closed fracture of left hip - Scribe Statement The provider has reviewed the documentation as recorded by the Scribe Nasim Padron All medical record entries made by the Scribe were at my direction and personally dictated by me. I have reviewed the chart and agree that the record accurately reflects my personal performance of the history, physical exam, medical decision making, and the department course for this patient. I have also personally directed, reviewed, and agree with the discharge instructions and disposition.
--- NOTE | 2018-01-25 04:12 | CT ---
EXAM: CT Head Without Intravenous Contrast EXAM DATE/TIME: 01/25/2018 1:59 AM CLINICAL HISTORY: 62 years old, male; Pain; Headache and other: Fell; Patient HX: 4; Additional info: S/P fall TECHNIQUE: Axial computed tomography images of the head/brain without intravenous contrast. All CT scans at this facility use one or more dose reduction techniques, viz.: automated exposure control; ma/kV adjustment per patient size (including targeted exams where dose is matched to indication; i.e. head); or iterative reconstruction technique. COMPARISON: No relevant prior studies available. FINDINGS: BRAIN: Focal areas of low density in the basal ganglia bilaterally, most compatible with old/chronic lacunar infarcts. Areas of hypodensity in the white matter bilaterally, nonspecific in appearance, but most likely representing chronic small vessel ischemic changes, in a patient of this age. No significant acute abnormality identified. No acute hemorrhage seen within the brain. No acute extra-axial fluid collections visualized. No evidence of significant mass effect within the brain. VENTRICLES: No evidence of significant hydrocephalus. BONES/JOINTS: No acute fractures or other acute bony abnormality noted. SOFT TISSUES: No acute abnormality of the visualized soft tissues is seen. SINUSES: Visualized paranasal sinuses appear clear. MASTOID AIR CELLS: Mastoid air cells appear clear. IMPRESSION: - No evidence of acute intracranial injury or fractures. - See above for remaining findings.
--- NOTE | 2018-01-25 04:30 | CT ---
EXAM: CT Left Lower Extremity Without Intravenous Contrast, Hip EXAM DATE/TIME: 01/25/2018 1:59 AM CLINICAL HISTORY: 62 years old, male; Pain; Hip; Left; Prior surgery; Surgery type: 18; Additional info: S/P fall; R/O fracture TECHNIQUE: Axial computed tomography images of the left hip without intravenous contrast. All CT scans at this facility use one or more dose reduction techniques, viz.: automated exposure control; ma/kV adjustment per patient size (including targeted exams where dose is matched to indication; i.e. head); or iterative reconstruction technique. Coronal and sagittal reformatted images were created and reviewed. COMPARISON: Report from a prior CT of the left hip of 12/20/2017. The prior study itself is currently unavailable. FINDINGS: LIMITATIONS: Streak artifact from metallic hardware in the left proximal femur. BONES/JOINTS: Metallic hardware in the left proximal femur. There is an intramedullary sandrita and screw device in place, which appears intact. There is an obliquely oriented intertrochanteric fracture of the left femoral neck. There is approximately 9 mm displacement of the fracture site. There is a small amount of callus formation at the fracture site medially, however, the fracture line remains sharply evident. Healed fractures of the left superior and inferior pubic rami. Bony structures appear demineralized. No additional acute fractures seen. No evidence of acute dislocation. SOFT TISSUES: No evidence of soft tissue hematoma. IMPRESSION: - Subacute intertrochanteric fracture of the left femoral neck, also described on a prior hip CT of 12/20/2017, transfixed by a metallic sandrita and screw device. There is a small amount of callus formation at the fracture site, but the fracture remains sharply evident/incompletely healed. - No additional fractures. - See above for remaining findings.
[2018-01-25 06:29] VITALS: O2SAT 98
[2018-01-25 06:33] VITALS: BP 149/61; PULSE 57; RESP 16; TEMP 98.3
== END 2018-01-25 08:29 | disposition home or self-care (01) ==
LOC: C.ER 01:18
DX: M25.552 Pain in left hip (principal); Z98.890 Other specified postprocedural states

== ENCOUNTER 2018-07-23 15:47 | Inpatient (IN) | payer OTHER ==
[2018-07-23 15:47] VITALS: BMI 26.6
--- NOTE | 2018-07-23 16:10 | C.PDOC ---
History Of Present Illness 62M w/ PMHx of HTN, hyperlipidemia, ETOH, ?colon cancer, metastatic prostate cancer (per chart review, patient denies medical history), presents to ED w/ 1 day of hematuria. Patient states symptoms started suddenly last night and now has increased urinary frequency, having to go ever 15-30 minutes. Patient additionally states he is having abdominal pain along with the hematuria. Patient additionally is having some SOB, which he attributes to him being nervous. Patient denies chest pain, nausea, vomiting, fevers, chills, headaches, vision changes. <Minor Clay - Last Filed: 07/23/18 18:24> Patient seen and examined. Hx of prostatic CA presents with gross hematuria and lower abdominal pain since yesterday. He denies associated GI symptoms, fever or chills. <Jessica Wilson - Last Filed: 07/23/18 20:53> <Minor Clay - Last Filed: 07/23/18 18:24> <Jessica Wilson - Last Filed: 07/23/18 20:53> Time Seen by Provider: 07/23/18 15:48 Chief Complaint (Nursing): Male Genitourinary Past Medical History Vital Signs: Last Vital Signs Temp 98.6 F 07/23/18 15:56 Pulse 83 07/23/18 15:56 Resp 18 07/23/18 15:56 BP 190/89 H 07/23/18 15:56 Pulse Ox 100 07/23/18 15:56 - Medical History PMH: HTN Denies: Chronic Kidney Disease - [facility] Procedures COLONOSCOPY (04/03/15) ESOPHAGOGASTRODUODENOSCOPY [EGD] W/CLOSED BIOPSY (04/03/15) PACKED CELL TRANSFUSION (04/03/15) PHERESIS OF PLATELETS, SINGLE (12/20/17) REPOSITION R UP FEMUR WITH INTRAMED FIX, PERC APPROACH (12/20/17) TRANSFUSE AUTOL RED BLOOD CELLS IN PERIPH VEIN, PERC (12/20/17) VACCINATION NEC (05/08/15) Family History: States: Unknown Family Hx - Social History Hx Tobacco Use: No Hx Alcohol Use: Yes Hx Substance Use: No - Immunization History Hx Tetanus Toxoid Vaccination: Yes Hx Influenza Vaccination: Yes Hx Pneumococcal Vaccination: Yes <Minor Clay - Last Filed: 07/23/18 18:24> Vital Signs: Last Vital Signs Temp 98 F 07/23/18 20:13 Pulse 73 07/23/18 20:13 Resp 18 07/23/18 20:13 BP 161/79 H 07/23/18 20:13 Pulse Ox 98 07/23/18 20:13 - [facility] Procedures COLONOSCOPY (04/03/15) ESOPHAGOGASTRODUODENOSCOPY [EGD] W/CLOSED BIOPSY (04/03/15) PACKED CELL TRANSFUSION (04/03/15) PHERESIS OF PLATELETS, SINGLE (12/20/17) REPOSITION R UP FEMUR WITH INTRAMED FIX, PERC APPROACH (12/20/17) TRANSFUSE AUTOL RED BLOOD CELLS IN PERIPH VEIN, PERC (12/20/17) VACCINATION NEC (05/08/15) <Jessica Wilson - Last Filed: 07/23/18 20:53> Review Of Systems Constitutional: Negative for: Fever, Chills Eyes: Negative for: Vision Change Cardiovascular: Negative for: Chest Pain, Palpitations Respiratory: Positive for: Shortness of Breath. Negative for: Cough Gastrointestinal: Negative for: Nausea, Vomiting, Melena, Hematochezia Genitourinary: Positive for: Frequency, Hematuria Neurological: Negative for: Weakness, Numbness Psych: Positive for: Anxiety <Minor Clay - Last Filed: 07/23/18 18:24> Physical Exam - Physical Exam Appears: Non-toxic Skin: Other (spider telangiectasia on R side chest ) Head: Atraumatic Oral Mucosa: Moist Chest: Symmetrical, No Deformity Cardiovascular: No Friction Rub, No Murmur, No JVD, Other (Regular rate ) Respiratory: Normal Breath Sounds, No Decreased Breath Sounds, No Accessory Muscle Use, No Rales Gastrointestinal/Abdominal: Bowel Sounds, Soft, Tenderness (suprabuic tenderness on palpation ) Back: No CVA Tenderness, No Paraspinal Tenderness Extremity: Normal ROM, No Calf Tenderness, No Capillary Refill Neurological/Psych: Oriented x3 <Minor Clay - Last Filed: 07/23/18 18:24> ED Course And Treatment - Laboratory Results Result Diagrams: 07/23/18 16:42 07/23/18 16:42 O2 Sat by Pulse Oximetry: 100 <Minor Clay - Last Filed: 07/23/18 18:24> - Laboratory Results Result Diagrams: 07/23/18 16:42 07/23/18 16:42 Lab Interpretation: Abnormal (WBC 3.5, plt 63, Hgb 10.0, urine grossly bloody) ECG: Interpreted By Me ECG Rhythm: Sinus Rhythm ECG Interpretation: No Acute Changes Pulse Ox Interpretation: Normal - CT Scan/US CT abd/pelvis Other Rad Studies (CT/US): Read By Radiologist, Radiology Report Reviewed CT/US Interpretation: EXAM: CT Abdomen with IV contrast. CLINICAL HISTORY: UPPER ABD PAIN. TECHNIQUE: Axial computed tomography images of the abdomen and pelvis with intravenous contrast. 0.00 mGy-cm. CONTRAST: With; OMNI 240 & OMNI 300/100ML. COMPARISON: None provided. FINDINGS: LUNG BASES: The lung bases appear clear. No pleural effusions are seen. LIVER: Lobulated appearance to the liver with evidence of fatty infiltration cirrhotic change. GALLBLADDER AND BILE DUCTS: Gallstones present. PANCREAS: Unremarkable. SPLEEN: Unremarkable. ADRENAL GLANDS: Unremarkable. KIDNEYS, URETERS, AND BLADDER: T he kidneys appear within normal limits. There is no hydronephrosis or hydroureter. No urinary calculi are seen. Prostate gland is moderately enlarged and lobulated in contour in some prostatic seed implants are present. There is thickening of the bladder wall. STOMACH AND BOWEL: Unremarkable appearance of the stomach and bowel. No evidence of bowel obstruction. No evidence suggesting enteritis or colitis. Small periumbilical hernia and small left inguinal hernia. APPENDIX: No evidence of acute appendicitis on CT examination. PERITONEUM: No free fluid. No free air. LYMPH NODES: No lymphadenopathy is evident. VASCULATURE: No evidence of abdominal aortic aneurysm. BONES: No aggressive appearing osseous lesion. No acute osseous pathology evident. Degenerative changes with chronic disc disease L5-S1 level. Mild compression deformity of the L1 vertebral body. Orthopedic fixation device left proximal femur. IMPRESSION: Fatty infiltration and cirrhotic liver. Lobulated lynette earance to the liver. Gallstones. Small periumbilical and left inguinal hernias. Enlarged prostate gland with a lobulated appearance. Bladder wall thickening. Degenerative changes lumbar spine with chronic disc disease L5-S1 level. Mild compression deformity of the L1 vertebral body. Orthopedic fixation device left proximal femur. . Electronically signed on Jul 23, 2018 8:06:35 PM EST by: Adarsh García M.D., Certified by [employer]BR, Diagnostic Radiology Reevaluation Time: 20:51 Reassessment Condition: Unchanged - Physician Consult Information Time Consulting Physician Contacted: 20:51 Outcome Of Conversation: Case discussed with Dr Velasquez and Dr Odell. He will be admitted for urologic evaluation of hematuria in patient with prostatic CA. <Jessica Wilson - Last Filed: 07/23/18 20:53> Medical Decision Making Medical Decision Making: CBC/CMP/ EKG/CT abd/pelvis (abd pain & gross hematuria & previous hx of mets to bone w/prostate carcinoma) <Minor Clay - Last Filed: 07/23/18 18:24> Disposition <Minor Clay - Last Filed: 07/23/18 18:24> - Disposition Disposition Time: 20:52 - POA Present On Arrival: None <Jessica Wilson - Last Filed: 07/23/18 20:53> - Disposition Disposition: HOSPITALIZED Condition: STABLE - Clinical Impression Clinical Impression: Prostate cancer, Hematuria
[2018-07-23 16:58] LABS: ALB/GLOB RATIO 1.1 (1.0-2.1); ALBUMIN 3.7 g/dL (3.5-5.0); ALT/SGPT 48 U/L (21-72); AST/SGOT 84 U/L (17-59); BLOOD UREA NITROGEN 10 mg/dL (9-20); CALCIUM 8.8 mg/dl (8.6-10.4); GFR NON-AFRICAN AMERICAN > 60
[2018-07-23 17:02] LABS: INR 1.3; PROTHROMBIN TIME 13.8 SECONDS (9.7-12.2)
[2018-07-23] MEDS ORDERED: Iohexol 240 (50 ml) PO ONE (17:11)
[2018-07-23 17:12] LABS: BASO % 1.1 % (0.0-2.0); EOS % 0.2 % (0.0-4.0); LYMPH # 0.8 K/uL (1.0-4.3); LYMPH % 24.4 % (20.0-40.0); MEAN PLATELET VOLUME 8.8 fL (7.2-11.7); MONO # 0.6 K/uL (0.0-0.8); MONO % 18.3 % (0.0-10.0); NEUT # 1.9 K/uL (1.8-7.0); NRBC % 0.1 % (0.0-2.0); RBC 3.03 Mil/uL (4.40-5.90); WHITE BLOOD COUNT 3.5 K/uL (4.8-10.8)
[2018-07-23] MEDS ORDERED: Iohexol 240 (50 ml) ONE (17:23)
[2018-07-23 17:47] LABS: URINE BACTERIA OCC (<OCC); URINE BILIRUBIN NEGATIVE (NEGATIVE); URINE BLOOD 3+ (NEGATIVE); URINE CLARITY Turbid (Clear); URINE COLOR Red (YELLOW); URINE GLUCOSE (UA) 1+ mg/dL (Normal); URINE LEUKOCYTE ESTERASE NEG Leu/uL (Negative); URINE PROTEIN 2+ mg/dL (NEGATIVE); URINE UROBILINOGEN NORMAL mg/dL (0.2-1.0)
[2018-07-23] MEDS ORDERED: Iohexol 300 100 ML IJ ONE (17:56)
[2018-07-23] MEDS ORDERED: Oxycodone/Acetaminophen 5/325 mg Tab PO PRN (20:59)
[2018-07-23 22:40] VITALS: RESP 20
[2018-07-24 08:35] LABS: BASO # 0.1 K/uL (0.0-0.2); BASO % 1.2 % (0.0-2.0); EOS # 0.1 K/uL (0.0-0.7); EOS % 2.7 % (0.0-4.0); HEMOGLOBIN 9.1 g/dL (12.0-18.0); MEAN CELL VOLUME 96.9 fL (80.0-94.0); MEAN CORPUSCULAR HEMOGLOBIN 33.1 pg (27.0-31.0); MEAN CORPUSCULAR HGB CONC 34.2 g/dL (33.0-37.0); MEAN PLATELET VOLUME 8.9 fL (7.2-11.7); MONO # 0.9 K/uL (0.0-0.8); MONO % 20.3 % (0.0-10.0); NEUT # 2.3 K/uL (1.8-7.0); NEUT % 52.8 % (50.0-75.0); NRBC % 0.1 % (0.0-2.0); PLATELET COUNT 63 K/uL (130-400); RBC 2.74 Mil/uL (4.40-5.90); RED CELL DISTRIBUTION WIDTH 14.1 % (11.5-14.5); WHITE BLOOD COUNT 4.4 K/uL (4.8-10.8)
[2018-07-24 09:04] LABS: EOSINOPHIL 5 % (0-4); LYMPHOCYTE 27 % (20-40); MONOCYTE 19 % (0-10); NEUTROPHIL 49 % (50-75); PLATELET ESTIMATE DECREASED (NORMAL); TOTAL CELLS COUNTED 100
[2018-07-24 09:05] LABS: ANISOCYTOSIS SLIGHT; HYPOCHROMIC SLIGHT; OVALOCYTES SLIGHT; POIKILOCYTOSIS SLIGHT
[2018-07-24 09:07] LABS: ALB/GLOB RATIO 1.1 (1.0-2.1); ALBUMIN 3.3 g/dL (3.5-5.0); ALT/SGPT 43 U/L (21-72); AST/SGOT 68 U/L (17-59); BLOOD UREA NITROGEN 12 mg/dL (9-20); CALCIUM 8.8 mg/dl (8.6-10.4); GFR NON-AFRICAN AMERICAN > 60
--- NOTE | 2018-07-24 09:30 | CP.PCM.PN ---
Subjective - Date & Time of Evaluation Date of Evaluation: 07/24/18 Time of Evaluation: 09:27 - Subjective Subjective: PGY3 Note for Dr. Odell This patient was seen and examined at bedside this AM; as per chart review that patient has a hx of prostate cancer but the patient denies any history of such; admits to hx of colon cancer a few years ago. States 2 days ago, he was peeing what looked like dark clots, and his urine was grossly brown. He states this has never happened before. He admits to dysuria with urination as well as frequency and suprapubic pain. Denies all other symptoms. Heavy smoker in the past, quit 30 years ago. 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 Objective - Vital Signs/Intake and Output Vital Signs (last 24 hours): Temp Pulse Resp BP Pulse Ox 99.3 F 64 20 160/76 H 96 07/24/18 07:42 07/24/18 07:42 07/24/18 07:42 07/24/18 07:42 07/24/18 07:42 Intake and Output: 07/24/18 07/24/18 06:59 18:59 Intake Total 240 Output Total 950 Balance -710 - Medications Medications: Current Medications Acetaminophen (Tylenol 325mg Tab) 650 mg PO Q6 PRN PRN Reason: Pain, moderate (4-7) Ceftriaxone Sodium (Rocephin Iv 1 Gm Duplex) 50 mls @ 100 mls/hr IVPB DAILY LORIE; Protocol Losartan Potassium (Cozaar) 50 mg PO DAILY LORIE Metoprolol Succinate (Toprol Xl) 25 mg PO DAILY [facility] Multivitamins (Hexavitamin) 1 tab PO DAILY LORIE Oxycodone/Acetaminophen (Percocet 5/325 Mg Tab) 1 tab PO Q4H PRN PRN Reason: Pain, moderate (4-7) Stop: 07/26/18 21:00 Rosuvastatin Calcium (Crestor) 5 mg PO HS LORIE Tamsulosin HCl (Flomax) 0.4 mg PO DAILY LORIE Thiamine HCl (Vitamin B1 Tab) 100 mg PO BID LORIE - Labs Labs: 07/24/18 08:18 07/24/18 08:18 PT 13.8 SECONDS (9.7-12.2) H 07/23/18 16:42 INR 1.3 07/23/18 16:42 - Constitutional Appears: Non-toxic, No Acute Distress, Older Than Stated Age, Chronically Ill - Head Exam Head Exam: ATRAUMATIC, NORMAL INSPECTION - Eye Exam Eye Exam: EOMI, Normal appearance. absent: Scleral icterus - ENT Exam ENT Exam: Mucous Membranes Moist - Neck Exam Neck Exam: Full ROM. absent: Lymphadenopathy - Respiratory Exam Respiratory Exam: Clear to Ausculation Bilateral, NORMAL BREATHING PATTERN. absent: Rales, Rhonchi, Wheezes - Cardiovascular Exam Cardiovascular Exam: REGULAR RHYTHM, +S1, +S2 Assessment and Plan - Assessment and Plan (Free Text) Assessment: 62yo M admitted for gross hematuria Gross Hematuria -Urology; Dr. Shavon Oliver; thank you for your help -Ceftriaxone 1g daily -will need surgical clearance prior to OR for possible cystoscopy -f/u chest xray -ct shows proctatitis Hx of Prostate CA -patient has metastatic disease from either colon cancer or prostate cancer; patient denies prostate cancer -Ct shows proctitis, with seeds, cirrhosis, mets to bone t12/L1 Pancreatic Nodule -CT recommends dedicated pancreas scan -will f/u Hx of Colon Cancer -cat scan shows rectal thickening Hx of HTN -c/w losartan 50mg daily Hx of COPD -c/w home breathing treatments -not in acute exacerbation Hx of HLD -c/w crestor 5mg Hx of BPH -c/w tamsulosin 0.4mg daily Proph -anticoagulation contraindicated 2/2 to gross hematuria -GI prophylaxis not indicated -Heart healthy diet Case discussed and seen with Dr. Cass Finley PGY3
--- NOTE | 2018-07-24 11:00 | CT ---
PROCEDURE: CT Abdomen and Pelvis with oral and IV contrast. HISTORY: abdominal pain with gross hematuria COMPARISON: CT abdomen and pelvis without contrast performed 12/25/17. TECHNIQUE: Contiguous axial images of the abdomen and pelvis. Oral and IV contrast was administered. Coronal and Sagittal reformats generated and reviewed. Contrast dose: 100 mL Omnipaque 300 Radiation dose: Total exam DLP = 300.28 mGy-cm. This CT exam was performed using one or more of the following dose reduction techniques: Automated exposure control, adjustment of the mA and/or kV according to patient size, and/or use of iterative reconstruction technique. FINDINGS: LOWER THORAX: No visible consolidation, pleural effusion, or pneumothorax. LIVER: Nodular hepatic contour. Heterogeneity and diffuse hypoattenuation of the liver parenchyma. GALLBLADDER AND BILE DUCTS: Cholelithiasis. PANCREAS: Hazy region of low-density within the pancreatic body may be artifactual however limited assessment on a single phase study. SPLEEN: Unremarkable. ADRENALS: Mild hypertrophy of the left adrenal gland. The right adrenal gland appears unremarkable. KIDNEYS AND URETERS: The kidneys enhance symmetrically. No hydronephrosis or obstructing renal calculus. 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 Too small to characterize right renal hypodensity; statistically likely cyst. BLADDER: Mild urinary bladder wall thickening. REPRODUCTIVE: Enlarged lobulated prostate gland with prostate seed implants. APPENDIX: The appendix appears within normal limits of caliber. No secondary signs of acute appendicitis. BOWEL: The stomach is nondistended. The bowel loops appear within normal limits of caliber without evidence of intestinal obstruction. Rectal wall thickening possibly due to proctitis. PERITONEUM: No significant free fluid. No definite free air. LYMPH NODES: No bulky lymphadenopathy identified. VASCULATURE: No aortic aneurysm. Atherosclerotic calcifications of the aorta present. BONES: Streak artifact from left hip metallic hardware. Re-identified diffuse sclerotic metastases. T12 and L1 compression fracture deformities. OTHER FINDINGS: Small ventral hernia. Small fat containing left inguinal hernia. IMPRESSION: Hazy region of low-density within the pancreatic body may be artifactual however limited assessment on a single phase study. Correlate clinically and further evaluation with dedicated CT of the pancreas may be considered. Rectal wall thickening possibly due to proctitis. Correlate clinically. Nodular hepatic contour consistent with cirrhosis. Heterogeneity and diffuse hypoattenuation of the liver parenchyma. Lobulated enlarged prostate gland with prostate seed implants. Mild bladder wall thickening; correlate with urinalysis. Cholelithiasis. 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 Re-identified diffuse sclerotic metastases. T12 and L1 compression fracture deformities. Preliminary impression was provided by [facility]. Study marked for PA review. Findings discussed with MARGARITO Walker on 07/24/18 at 1051 am.
[2018-07-24] MEDS: cefTRIAXone IV 1 gm in Dextros 50 ML IVPB SCH (11:35)
[2018-07-24] MEDS: Multiple Vitamins Tab PO SCH (11:35)
[2018-07-24] MEDS: Metoprolol Succinate 25 mg XL Tab PO SCH (11:35)
--- NOTE | 2018-07-24 12:46 | CARD ---
APPROVED REPORT Date of service: 07/23/2018 EKG Measurement Heart [id number] IN [id number] [id number] <Conclusion> Normal sinus rhythm Prolonged QT Abnormal ECG
--- NOTE | 2018-07-24 13:32 | RAD ---
Date of service: 07/24/2018 HISTORY: surgical clearance COMPARISON: No prior. FINDINGS: LUNGS: Minor bibasilar atelectasis right greater than left. There also appears to be minor right apical pleural thickening PLEURA: No significant pleural effusion identified, no pneumothorax apparent. CARDIOVASCULAR: Mild aortic atherosclerotic calcification present. Normal cardiac size. No pulmonary vascular congestion. OSSEOUS STRUCTURES: Numerous small sclerotic lesions scattered throughout multiple ribs consistent with sclerotic/blastic metastases. VISUALIZED UPPER ABDOMEN: Normal. OTHER FINDINGS: None. IMPRESSION: Minor bibasilar atelectasis. Scattered sclerotic bony metastasis.
--- NOTE | 2018-07-24 23:58 | CON ---
DATE: 07/24/2018 REASON FOR CONSULTATION: Gross hematuria. HISTORY OF PRESENT ILLNESS: Mr. Saleem is a very pleasant gentleman, 62 years old. 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 Anyway, he comes to the hospital. He had an episode of gross hematuria and it seems to be cleared at this point, but he had a couple of episodes. PAST MEDICAL AND SURGICAL HISTORY: As listed on the chart. Patient of Dr. Odell. No history of trauma. REVIEW OF SYSTEMS: Negative. No significant history of prostrate cancer that he knows of or history of bladder cancer, kidney cancer, etc. MEDICATIONS: See chart. ALLERGIES: SEE CHART. SMOKING HISTORY: Noted to be . PHYSICAL EXAMINATION GENERAL: A well-nourished male, in no apparent distress. VITAL SIGNS: Within normal limits. LUNGS: Clear. ABDOMEN: Soft and nontender. No flank mass appreciated. RECTAL: Deferred for now. LABORATORY DATA: See the chart. DIAGNOSIS: Gross hematuria and voiding dysfunction. ASSESSMENT AND PLAN: A very pleasant 62-year-old gentleman with the above history. We need to rule out any malignancy; need upper tract imaging; need abdominal imaging, CAT scan, etc. From our standpoint also, we recommend cystoscopy. The question is the timing of this whether when it will be done. In the meantime, the plan is as follows: 1. Upper tract imaging to be reviewed. 2. Urine culture. 3. Urine cytology. 4. Cystoscopy and this is to be done either in- or outpatient depending on the patient's clinical status. I have explained to the patient directly. We will make further plans. Thank you for the consultation. Michael Oliver MD
[2018-07-25 07:14] LABS: BASO # 0.1 K/uL (0.0-0.2); BASO % 1.8 % (0.0-2.0); EOS # 0.2 K/uL (0.0-0.7); EOS % 4.2 % (0.0-4.0); HEMOGLOBIN 9.9 g/dL (12.0-18.0); LYMPH # 1.5 K/uL (1.0-4.3); LYMPH % 28.8 % (20.0-40.0); MEAN CELL VOLUME 97.2 fL (80.0-94.0); MEAN CORPUSCULAR HEMOGLOBIN 33.3 pg (27.0-31.0); MEAN CORPUSCULAR HGB CONC 34.3 g/dL (33.0-37.0); MEAN PLATELET VOLUME 9.2 fL (7.2-11.7); MONO # 0.8 K/uL (0.0-0.8); NEUT # 2.7 K/uL (1.8-7.0); NEUT % 50.2 % (50.0-75.0); NRBC % 0.1 % (0.0-2.0); RBC 2.97 Mil/uL (4.40-5.90); RED CELL DISTRIBUTION WIDTH 14.2 % (11.5-14.5); WHITE BLOOD COUNT 5.3 K/uL (4.8-10.8)
--- NOTE | 2018-07-25 07:50 | CP.PCM.PN ---
Subjective - Date & Time of Evaluation Date of Evaluation: 07/25/18 Time of Evaluation: 07:50 - Subjective Subjective: PGY2 Progress note for Dr. Odell Patient was seen and examined at bedside in no acute distress. Patient states his urine has minimal blood now. He says hes feeling better than yesterday. The patient denies chest pain, palpitations, dyspnea, nausea, vomiting, abdominal pain, fevers. Objective - Vital Signs/Intake and Output Vital Signs (last 24 hours): Temp Pulse Resp BP Pulse Ox 98.5 F 61 20 135/66 98 07/25/18 07:41 07/25/18 07:41 07/25/18 07:41 07/25/18 07:41 07/25/18 07:41 Intake and Output: 07/25/18 07/25/18 06:59 18:59 Intake Total 350 Output Total 500 Balance -150 - Medications Medications: Current Medications Acetaminophen (Tylenol 325mg Tab) 650 mg PO Q6 PRN PRN Reason: Pain, moderate (4-7) Ceftriaxone Sodium (Rocephin Iv 1 Gm Duplex) 50 mls @ 100 mls/hr IVPB DAILY [facility]; Protocol Last Admin: 07/24/18 11:35 Dose: 100 mls/hr Losartan Potassium (Cozaar) 50 mg PO DAILY [facility] Last Admin: 07/24/18 11:35 Dose: 50 mg Metoprolol Succinate (Toprol Xl) 25 mg PO DAILY [facility] Last Admin: 07/24/18 11:35 Dose: 25 mg Multivitamins (Hexavitamin) 1 tab PO DAILY [facility] Last Admin: 07/24/18 11:35 Dose: 1 tab Oxycodone/Acetaminophen (Percocet 5/325 Mg Tab) 1 tab PO Q4H PRN PRN Reason: Pain, moderate (4-7) Stop: 07/26/18 21:00 Rosuvastatin Calcium (Crestor) 5 mg PO HS [facility] Last Admin: 07/24/18 21:15 Dose: 5 mg Tamsulosin HCl (Flomax) 0.4 mg PO DAILY [facility] Last Admin: 07/24/18 11:35 Dose: 0.4 mg Thiamine HCl (Vitamin B1 Tab) 100 mg PO BID [facility] Last Admin: 07/24/18 17:50 Dose: 100 mg - Labs Labs: 07/25/18 06:55 07/24/18 08:18 PT 13.8 SECONDS (9.7-12.2) H 07/23/18 16:42 INR 1.3 07/23/18 16:42 - Constitutional Appears: No Acute Distress - Head Exam Head Exam: NORMAL INSPECTION - Eye Exam Eye Exam: EOMI, Normal appearance - ENT Exam ENT Exam: Mucous Membranes Moist - Respiratory Exam Respiratory Exam: NORMAL BREATHING PATTERN. absent: Rales, Rhonchi, Wheezes, Respiratory Distress - Cardiovascular Exam Cardiovascular Exam: REGULAR RHYTHM, +S1, +S2 - GI/Abdominal Exam GI & Abdominal Exam: Soft, Normal Bowel Sounds. absent: Distended, Firm, Guarding, Tenderness - Extremities Exam Extremities Exam: Normal Inspection. absent: Pedal Edema, Tenderness - Neurological Exam Neurological Exam: Alert, Awake, Oriented x3 - Psychiatric Exam Psychiatric exam: Normal Affect, Normal Mood - Skin Skin Exam: Dry, Normal Color, Warm Assessment and Plan - Assessment and Plan (Free Text) Plan: 62yo M admitted for gross hematuria Gross Hematuria - Urology; Dr. Shavon Oliver; thank you for your help * will need urine cx, cytology and cystoscopy - Ceftriaxone 1g daily - will need surgical clearance prior to OR for possible cystoscopy - chest xray: minor bibasilar atelectasis; scattered sclerotic bony mets. - CT shows proctatitis - Urine cx: no growth Hx of Prostate CA - Patient has metastatic disease from either colon cancer or prostate cancer - CT shows proctitis, with seeds, cirrhosis, mets to bone t12/L1 Pancreatic Nodule - CT recommends dedicated pancreas scan Hx of Colon Cancer - CT scan shows rectal thickening Hx of HTN - c/w losartan 50mg daily Hx of COPD - c/w home breathing treatments - not in acute exacerbation Hx of HLD - c/w crestor 5mg Hx of BPH - c/w tamsulosin 0.4mg daily Proph - SCDs; anticoagulation contraindicated 2/2 to gross hematuria - GI prophylaxis not indicated - NPO for possible cystoscopy with Dr. Oliver - Palliative care consult for goals of care - PT All medical management per Dr. Odell.
[2018-07-25 08:16] LABS: ALBUMIN 3.5 g/dL (3.5-5.0); ALT/SGPT 47 U/L (21-72); AST/SGOT 64 U/L (17-59); BLOOD UREA NITROGEN 15 mg/dL (9-20); CALCIUM 8.4 mg/dl (8.6-10.4); GFR NON-AFRICAN AMERICAN > 60
--- NOTE | 2018-07-25 09:32 | HP ---
HISTORY OF PRESENT ILLNESS: The patient has a history of prostrate cancer. He is also complaining of hematuria, painless. PHYSICAL EXAMINATION GENERAL: The patient is awake, alert and oriented. VITAL SIGNS: Temperature 98, pulse 90. HEENT: Within normal limits. NECK: Supple. CHEST: Symmetrical. HEART: Regular. ABDOMEN: Soft. EXTREMITIES: No edema. ASSESSMENT AND PLAN: The patient suffers from hematuria and prostrate cancer. The patient needs bed rest and supportive care. Urology consult. Frank Odell MD
[2018-07-25] MEDS: cefTRIAXone IV 1 gm in Dextros 50 ML IVPB SCH (10:30)
[2018-07-25] MEDS: Multiple Vitamins Tab PO SCH (10:30)
[2018-07-25] MEDS: Metoprolol Succinate 25 mg XL Tab PO SCH (10:30)
--- NOTE | 2018-07-25 15:25 | CP.PCM.CON ---
History of Present Illness - History of Present Illness History of Present Illness: UROLOGY CONSULTATION IMP: HX OF RT FOR PROSTATE CANCER HEMATURIA - DDX: NEOPLASIA/ INFECTION/ UROLITHIASIS ABD PAIN FULL NOTE TBD ys Past Patient History - Infectious Disease Hx of Infectious Diseases: None - Tetanus Immunizations Tetanus Immunization: Unknown - Past Medical History & Family History Past Medical History?: Yes - Past Social History Smoking Status: Former Smoker - CARDIAC Hx Cardiac Disorders: Yes Hx Hypertension: Yes - PULMONARY Hx Respiratory Disorders: Yes Other/Comment: hx pleural effusion - NEUROLOGICAL Hx Neurological Disorder: No - HEENT Hx HEENT Problems: Yes Other/Comment: wear reading eyeglasses - RENAL Hx Chronic Kidney Disease: No - ENDOCRINE/METABOLIC Hx Endocrine Disorders: No - HEMATOLOGICAL/ONCOLOGICAL Hx Blood Disorders: Yes Hx Chemotherapy: Yes (5-6 years ago as per patient) Hx Cirrhosis: Yes Other/Comment: liver failure ----pt states he last drank beers 3 weeks ago - INTEGUMENTARY Hx Dermatological Problems: No - MUSCULOSKELETAL/RHEUMATOLOGICAL Hx Arthritis: Yes (L HIP) - GASTROINTESTINAL Hx Gastrointestinal Disorders: Yes Hx Liver Failure: Yes Other/Comment: alcohol abuse - GENITOURINARY/GYNECOLOGICAL Hx Genitourinary Disorders: Yes Hx Hematuria: Yes - PSYCHIATRIC Hx Substance Use: No - SURGICAL HISTORY Hx Surgeries: Yes Hx Open Reduction Internal Fixation: Yes Other/Comment: December-left femur fracture sx - ANESTHESIA Hx Anesthesia: Yes Hx Anesthesia Reactions: No Meds Allergies/Adverse Reactions: Allergies Allergy/AdvReac Type Severity Reaction Status Date / Time No Known Allergies Allergy Verified 12/20/17 11:26 - Medications Medications: Current Medications Acetaminophen (Tylenol 325mg Tab) 650 mg PO Q6 PRN PRN Reason: Pain, moderate (4-7) Ceftriaxone Sodium (Rocephin Iv 1 Gm Duplex) 50 mls @ 100 mls/hr IVPB DAILY [facility]; Protocol Last Admin: 07/25/18 10:30 Dose: 100 mls/hr Losartan Potassium (Cozaar) 50 mg PO DAILY [facility] Last Admin: 07/25/18 10:30 Dose: 50 mg Metoprolol Succinate (Toprol Xl) 25 mg PO DAILY [facility] Last Admin: 07/25/18 10:30 Dose: 25 mg Multivitamins (Hexavitamin) 1 tab PO DAILY [facility] Last Admin: 07/25/18 10:30 Dose: 1 tab Oxycodone/Acetaminophen (Percocet 5/325 Mg Tab) 1 tab PO Q4H PRN PRN Reason: Pain, moderate (4-7) Stop: 07/26/18 21:00 Rosuvastatin Calcium (Crestor) 5 mg PO HS [facility] Last Admin: 07/24/18 21:15 Dose: 5 mg Tamsulosin HCl (Flomax) 0.4 mg PO DAILY [facility] Last Admin: 07/25/18 10:30 Dose: 0.4 mg Thiamine HCl (Vitamin B1 Tab) 100 mg PO BID [facility] Last Admin: 07/25/18 10:34 Dose: 100 mg Results - Vital Signs Recent Vital Signs: Last Vital Signs Temp 98.5 F 07/25/18 07:41 Pulse 61 07/25/18 07:41 Resp 20 07/25/18 07:41 BP 135/66 07/25/18 07:41 Pulse Ox 98 07/25/18 07:41 - Labs Result Diagrams: 07/25/18 06:55 07/25/18 06:55 Labs: Laboratory Results - last 24 hr 07/24/18 07/25/18 07/25/18 17:52 06:55 06:55 WBC 5.3 RBC 2.97 L Hgb 9.9 L Hct 28.8 L MCV 97.2 H MCH 33.3 H MCHC 34.3 RDW 14.2 Plt Count 85 L D MPV 9.2 Neut % (Auto) 50.2 Lymph % (Auto) 28.8 [place] % (Auto) 15.0 H Eos % (Auto) 4.2 H Baso % (Auto) 1.8 Neut # (Auto) 2.7 Lymph # (Auto) 1.5 [place] # (Auto) 0.8 Eos # (Auto) 0.2 Baso # (Auto) 0.1 Sodium 138 Potassium 3.7 Chloride 104 Carbon Dioxide 20 L Anion Gap 19 BUN 15 Creatinine 0.8 Est GFR ( Amer) > 60 Est GFR (Non-Af Amer) > 60 Random Glucose 99 Calcium 8.4 L Total Bilirubin 1.6 H AST 64 H ALT 47 Alkaline Phosphatase 150 H D Total Protein 6.9 Albumin 3.5 Globulin 3.4 Albumin/Globulin Ratio 1.0 Prostate Specific Ag 24.1 H Testosterone Level 199 Assessment & Plan - Date & Time Date: 07/25/18 Time: 15:25
[2018-07-26 07:22] LABS: BASO # 0.1 K/uL (0.0-0.2); BASO % 0.9 % (0.0-2.0); EOS # 0.2 K/uL (0.0-0.7); HEMOGLOBIN 8.9 g/dL (12.0-18.0); LYMPH # 1.5 K/uL (1.0-4.3); LYMPH % 22.6 % (20.0-40.0); MEAN CELL VOLUME 97.3 fL (80.0-94.0); MEAN CORPUSCULAR HEMOGLOBIN 33.3 pg (27.0-31.0); MEAN CORPUSCULAR HGB CONC 34.2 g/dL (33.0-37.0); MEAN PLATELET VOLUME 9.3 fL (7.2-11.7); MONO # 1.1 K/uL (0.0-0.8); MONO % 16.9 % (0.0-10.0); NEUT # 3.7 K/uL (1.8-7.0); NEUT % 56.6 % (50.0-75.0); RBC 2.68 Mil/uL (4.40-5.90); WHITE BLOOD COUNT 6.6 K/uL (4.8-10.8)
[2018-07-26 07:44] LABS: ALBUMIN 3.3 g/dL (3.5-5.0); ALT/SGPT 40 U/L (21-72); AST/SGOT 56 U/L (17-59); BLOOD UREA NITROGEN 17 mg/dL (9-20); CALCIUM 8.5 mg/dl (8.6-10.4); GFR NON-AFRICAN AMERICAN > 60
[2018-07-26 08:16] VITALS: BP 139/81; PULSE 77; TEMP 98.2; O2SAT 97
[2018-07-26] MEDS: Multiple Vitamins Tab PO SCH (09:31)
[2018-07-26] MEDS: Metoprolol Succinate 25 mg XL Tab PO SCH (09:31)
[2018-07-26] MEDS: cefTRIAXone IV 1 gm in Dextros 50 ML IVPB SCH (10:11)
[2018-07-26] MEDS ORDERED: Influenza Vaccine 60 MCG/0.5 ML SYR (3 yr & up) IM ONE (12:57)
--- NOTE | 2018-07-26 16:53 | CP.PCM.PN ---
Subjective - Date & Time of Evaluation Date of Evaluation: 07/26/18 Time of Evaluation: 16:58 - Subjective Subjective: Alert, oriented, no acute distress. Objective - Vital Signs/Intake and Output Vital Signs (last 24 hours): Temp Pulse Resp BP Pulse Ox 98.2 F 77 20 139/81 97 07/26/18 08:15 07/26/18 08:15 07/26/18 08:15 07/26/18 08:15 07/26/18 08:15 Intake and Output: 07/26/18 07/26/18 06:59 18:59 Intake Total 730 Output Total 350 Balance 380 - Labs Labs: 07/26/18 07:01 07/26/18 07:01 PT 13.8 SECONDS (9.7-12.2) H 07/23/18 16:42 INR 1.3 07/23/18 16:42 Assessment and Plan - Assessment and Plan (Free Text) Assessment: 62 year old male with prostate cancer, admitted with hematuria and abdominal pain, seen and cleared by DR Odell, is discharged home. Advised to follow up with DR Oliver in the office in 1 week. Denies any pain or distress or active bleeding.
--- NOTE | 2018-07-28 07:14 | CON ---
DATE: 07/25/2018 CONSULTATION REQUESTED BY: Frank Odell MD CONSULTATION FILLED BY: Isabelle Oliver MD REASON FOR CONSULTATION: Hematuria. HISTORY OF PRESENT ILLNESS: The patient is a 62-year-old male, is admitted with hematuria and lower abdominal pain. The patient is a poor historian. The patient reports that he has history of colon cancer. He is not aware of his history of prostate cancer. The patient did have some previous treatment, which he feels could have been radiation therapy. The patient reports that he is comfortable with voiding. He reports at present he is not having hematuria. He reports he is not having abdominal pain. He is uncertain regarding history of previous hematuria. Review of the chart was performed by me. The patient has history of prostate carcinoma. He previously had radiation therapy for prostate carcinoma. The patient does report that he has urinary frequency. He reports no fever or rigors. No flank pain. The patient reports good appetite. He has occasional constipation. The patient has history of hypertension. History of alcohol abuse, according to review of the chart. The patient has history of previous orthopedic surgery for femoral fracture. The patient has been treated with antibiotic therapy since admission. The patient reports that he is feeling well at present and is expecting to be discharged soon. PHYSICAL EXAMINATION: GENERAL: The patient is a well-developed, well-nourished male, appearing older than his stated age. ABDOMEN: Soft. Mild suprapubic tenderness. No mass or organomegaly. BACK: No CVA tenderness. GENITALIA: Without inflammation. RECTAL: There is increased rectal sphincter tone and discomfort to rectal examination, which precludes a complete examination due to the patient's discomfort. The prostate is enlarged. The prostate is firm and smooth. Prostate is approximately 30 to 40 in size. LABORATORY DATA: Reviewed. White blood count 4400, hematocrit 26, platelet count is 63,000. INR is 1.3. BUN 12, creatinine is 0.8. Total bilirubin 2.1, alkaline phosphatase is 142, which is elevated and repeat alkaline phosphatase is 89. Urinalysis reveals 3+ blood, 38,000 red blood cells, and occasional bacteria. IMPRESSION: A 62-year-old male with history of radiation therapy for prostate carcinoma. The patient is a poor historian. The patient now has hematuria and abdominal pain. The etiology of hematuria may be secondary to inflammation, infection, neoplasia, and/or urolithiasis. Also possible is radiation cystitis and/or prostatitis. I discussed the findings with the patient's attending physician, who requested cystoscopy be performed today. I scheduled the patient for cystoscopy for today. However, the patient had eaten a full breakfast. Therefore, the cystoscopy was not performed despite having been scheduled for today. RECOMMENDATIONS AND PLAN: Obtain serum PSA. Obtain urine cytology. Obtain urine culture. I will schedule the patient for cystoscopy if he remains in the hospital. The patient requires further details to be obtained regarding his prostate cancer in terms of previous evaluation, previous staging, previous treatment, and previous pathology. The patient will require further urologic as well as oncologic followup. If the patient is discharged, please arrange for outpatient followup with me or with his private urologist. Thank you for recommending the patient for urology consultation. Isabelle Oliver MD cc: Frank Odell MD
== END 2018-07-26 14:35 | disposition home or self-care (01) | DRG 723 ==
LOC: C.ER 15:47 → C.9E 20:53 → C.3T 21:53
PROVIDERS: ADMIT Internal Medicine Pulmonary Disease; ATTEND Internal Medicine Pulmonary Disease
DX: C61 Malignant neoplasm of prostate (principal); C79.51 Secondary malignant neoplasm of bone; R31.0 Gross hematuria; I10 Essential (primary) hypertension; J44.9 Chronic obstructive pulmonary disease, unspecified; E78.5 Hyperlipidemia, unspecified; N40.0 Benign prostatic hyperplasia without lower urinary tract symptoms; R10.30 Lower abdominal pain, unspecified; R30.0 Dysuria; R35.0 Frequency of micturition; Z87.891 Personal history of nicotine dependence; K74.60 Unspecified cirrhosis of liver; F10.10 Alcohol abuse, uncomplicated; Z85.038 Personal history of other malignant neoplasm of large intestine; D69.6 Thrombocytopenia, unspecified

== ENCOUNTER 2018-09-09 08:24 | Emergency (ER) | payer OTHER ==
[2018-09-09 08:25] VITALS: BMI 26.6
[2018-09-09 08:35] VITALS: BP 137/54
--- NOTE | 2018-09-09 09:07 | C.PDOC ---
History Of Present Illness 62 y/o male presents to the ER for evaluation of mild right hip pain s/p fall last night. Patient states that he drank 11-12 beers. Patient reports that he fell and he was not able to get up. He notes that he did not have any symptoms prior to the fall. He uses a walker and he is currently undergoing physical therapy. Denies having LOC, dizziness, nausea, vomiting, and urinary/bowel incontinence. Time Seen by Provider: 09/09/18 08:39 Chief Complaint (Nursing): Hip Pain History Per: Patient History/Exam Limitations: no limitations Onset/Duration Of Symptoms: Days Current Symptoms Are (Timing): Still Present Severity: Mild Past Medical History Reviewed: Historical Data, Nursing Documentation, Vital Signs Vital Signs: Last Vital Signs Temp 98.6 F 09/09/18 08:34 Pulse 89 09/09/18 08:34 Resp BP 137/54 L 09/09/18 08:34 Pulse Ox 98 09/09/18 08:34 - Medical History PMH: Arthritis (L HIP), Fractures (left femur), HTN Denies: Chronic Kidney Disease Other Surgeries: Hx of surgeries - [facility] Procedures COLONOSCOPY (04/03/15) ESOPHAGOGASTRODUODENOSCOPY [EGD] W/CLOSED BIOPSY (04/03/15) PACKED CELL TRANSFUSION (04/03/15) PHERESIS OF PLATELETS, SINGLE (12/20/17) REPOSITION R UP FEMUR WITH INTRAMED FIX, PERC APPROACH (12/20/17) TRANSFUSE AUTOL RED BLOOD CELLS IN PERIPH VEIN, PERC (12/20/17) VACCINATION NEC (05/08/15) Family History: States: No Known Family Hx - Social History Hx Tobacco Use: No Hx Alcohol Use: Yes Hx Substance Use: No - Immunization History Hx Tetanus Toxoid Vaccination: Yes Hx Influenza Vaccination: Yes Hx Pneumococcal Vaccination: Yes Review Of Systems Except As Marked, All Systems Reviewed And Found Negative. Constitutional: Negative for: Fever, Chills Gastrointestinal: Negative for: Nausea, Vomiting Genitourinary: Negative for: Incontinence Musculoskeletal: Positive for: Other (right hip pain) Neurological: Negative for: Weakness, Numbness Physical Exam - Physical Exam Appears: Non-toxic, No Acute Distress Skin: Normal Color, Warm, Dry Head: Atraumatic, Normacephalic Eye(s): bilateral: Normal Inspection Nose: Normal Oral Mucosa: Moist Neck: Supple Chest: Symmetrical Cardiovascular: Rhythm Regular, Murmur (systolic murmur) Respiratory: Normal Breath Sounds, No Rales, No Rhonchi, No Wheezing Gastrointestinal/Abdominal: Soft, No Tenderness, No Guarding, No Rebound Extremity: Normal ROM, Tenderness (point tenderness to lateral aspect of right hip), No Deformity, No Swelling Neurological/Psych: Oriented x3, Normal Speech ED Course And Treatment - Laboratory Results Result Diagrams: 09/09/18 09:07 09/09/18 09:07 O2 Sat by Pulse Oximetry: 98 (RA) Pulse Ox Interpretation: Normal - Other Rad CXR X-Ray: Viewed By Me, Read By Radiologist Interpretation: Accession No. : [id number]. Patient Name / ID : MOO Porter / [id number]. Exam Date : 09/09/2018 09:03:03 ( Approved ). Study Comment : Sex / Age : M / 62Y. Creator : Mary Jc. Dictator : Guera Guillen MD. Bread Icer : Chemist Assistant : Guera Mayes MD. Approver2 : Report Date : 09/09/2018 09:15:08. My Comment : . HISTORY: r/o infiltrate. COMPARISON: Chest x-ray performed 07/24/28, CT abdomen and pelvis with contrast performed 07/23/18. TECHNIQUE: Chest, one view. FINDINGS: LUNGS: Left apical pleural thickening. No focal consolidation. Please note that chest x-ray has limited sensitivity for the detection of pulmonary masses. PLEURA: No significant pleural effusion identified. No definite pneumothorax . CARDIOVASCULAR: Heart size appears within normal limits. No significant atherosclerotic calcification present. OSSEOUS STRUCTURES: Evidence of sclerotic foci involving numerous bilateral ribs including measuring up to 11 mm involving the right anterior 6th rib, the l eft 4th anterior rib, and the left 5th posterior rib; findings consistent with osseous metastases as seen on CT of the abdomen and pelvis with contrast performed 07/23/18. VISUALIZED UPPER ABDOMEN: Mild elevation of the right hemidiaphragm. OTHER FINDINGS: None. IMPRESSION: Scattered sclerotic bony metastases. Left apical pleural thickening. X-Ray-Hip/Pelvis X-Ray: Viewed By Me, Read By Radiologist Interpretation: Date of service: 09/09/2018. Indication: s/p fall - r/o fx. Right hip with pelvis radiographs. Comparison: Left hip radiographs performed 12/20/17, CT abdomen and pelvis with contrast performed 07/23/18. Findings: L eft hip medullary sandrita and screw fixation. Osseous sclerotic metastases involving the sacrum and right pelvis. Osseous demineralization. Deformity of the left inferior ramus may be chronic. Correlate with physical exam. Impression: Left hip medullary sandrita and screw fixation. Osseous sclerotic me tastases involving the sacrum and right pelvis. Osseous demineralization. Deformity of the left inferior pubic ramus likely related to remote fracture; correlate with physical exam. Medical Decision Making Medical Decision Making: Plan: --Labs --ECG --CXR --UA --X-Ray-Hip/Pelvis --Tylenol PO Updates: Patient has been discharged and instructed to follow up with PMD in 1 week. Disposition - Disposition Referrals: Paul Velasquez MD [Staff Provider] - Disposition: HOME/ ROUTINE Disposition Time: 10:20 Condition: IMPROVED Additional Instructions: STEPHY CORTÉS, thank you for letting us take care of you today. The emergency medical care you received today was directed at your acute symptoms. If you were prescribed any medication, please fill it and take as directed. It may take several days for your symptoms to resolve. Return to the Emergency Department if your symptoms worsen, do not improve, or if you have any other problems. Please contact your doctor or call one of the physicians/clinics you have been referred to that are listed on the Patient Visit Information form that is included in your discharge packet. Bring any paperwork you were given at discharge with you along with any medications you are taking to your follow up visit. Our treatment cannot replace ongoing medical care by a primary care provider outside of the emergency department. Thank you for allowing the [facility] team to be part of your care today. Try to not drink too much alcohol at one time. Follow up with your primary care doctor this week and your physical therapy as scheduled. Instructions: Alcohol Use - When Is Drinking a Problem?, Hip Pain (DC) Forms: [employer] (Bulgarian) - Clinical Impression Clinical Impression: Alcohol use, Hip pain - Scribe Statement The provider has reviewed the documentation as recorded by the Nakul Kowalski Provider Attestation: All medical record entries made by the [facility] were at my direction and personally dictated by me. I have reviewed the chart and agree that the record accurately reflects my personal performance of the history, physical exam, medical decision making, and the department course for this patient. I have also personally directed, reviewed, and agree with the discharge instructions and disposition.
[2018-09-09 09:14] LABS: BASO # 0.1 K/uL (0.0-0.2); BASO % 1.5 % (0.0-2.0); EOS # 0.1 K/uL (0.0-0.7); HEMOGLOBIN 10.2 g/dL (12.0-18.0); LYMPH # 0.9 K/uL (1.0-4.3); LYMPH % 21.1 % (20.0-40.0); MEAN CORPUSCULAR HEMOGLOBIN 32.3 pg (27.0-31.0); MEAN CORPUSCULAR HGB CONC 33.9 g/dL (33.0-37.0); MEAN PLATELET VOLUME 7.7 fL (7.2-11.7); MONO # 0.7 K/uL (0.0-0.8); MONO % 16.1 % (0.0-10.0); NEUT # 2.5 K/uL (1.8-7.0); NEUT % 59.3 % (50.0-75.0); NRBC % 0.1 % (0.0-2.0); RBC 3.15 Mil/uL (4.40-5.90); RED CELL DISTRIBUTION WIDTH 14.3 % (11.5-14.5); WHITE BLOOD COUNT 4.3 K/uL (4.8-10.8)
[2018-09-09 09:15] LABS: MEAN CELL VOLUME 95.2 fL (80.0-94.0)
[2018-09-09 09:26] LABS: ALB/GLOB RATIO 1.1 (1.0-2.1); ALBUMIN 3.5 g/dL (3.5-5.0); ALT/SGPT 24 U/L (21-72); AST/SGOT 47 U/L (17-59); BLOOD UREA NITROGEN 8 mg/dL (9-20); CALCIUM 8.3 mg/dl (8.6-10.4); GFR NON-AFRICAN AMERICAN > 60
[2018-09-09 09:35] LABS: BARBITURATES, UR NEGATIVE (NEGATIVE); BENZODIAZEPINES, UR NEGATIVE (NEGATIVE); OPIATES, UR NEGATIVE (NEGATIVE); PHENCYCLIDINE, UR NEGATIVE (NEGATIVE)
--- NOTE | 2018-09-09 09:59 | RAD ---
HISTORY: r/o infiltrate COMPARISON: Chest x-ray performed 07/24/28, CT abdomen and pelvis with contrast performed 07/23/18 TECHNIQUE: Chest, one view. FINDINGS: LUNGS: Left apical pleural thickening. No focal consolidation. Please note that chest x-ray has limited sensitivity for the detection of pulmonary masses. PLEURA: No significant pleural effusion identified. No definite pneumothorax . CARDIOVASCULAR: Heart size appears within normal limits. No significant atherosclerotic calcification present. OSSEOUS STRUCTURES: Evidence of sclerotic foci involving numerous bilateral ribs including measuring up to 11 mm involving the right anterior 6th rib, the left 4th anterior rib, and the left 5th posterior rib; findings consistent with osseous metastases as seen on CT of the abdomen and pelvis with contrast performed 07/23/18. VISUALIZED UPPER ABDOMEN: Mild elevation of the right hemidiaphragm. OTHER FINDINGS: None. IMPRESSION: Scattered sclerotic bony metastases. Left apical pleural thickening.
--- NOTE | 2018-09-09 10:13 | RAD ---
Date of service: 09/09/2018 Indication: s/p fall - r/o fx Right hip with pelvis radiographs Comparison: Left hip radiographs performed 12/20/17, CT abdomen and pelvis with contrast performed 07/23/18 Findings: Left hip medullary sandrita and screw fixation. Osseous sclerotic metastases involving the sacrum and right pelvis. Osseous demineralization. Deformity of the left inferior ramus may be chronic. Correlate with physical exam. Impression: Left hip medullary sandrita and screw fixation. Osseous sclerotic metastases involving the sacrum and right pelvis. Osseous demineralization. Deformity of the left inferior pubic ramus likely related to remote fracture; correlate with physical exam.
[2018-09-09 11:36] VITALS: PULSE 68; RESP 18; TEMP 98.3
[2018-09-09 11:37] VITALS: O2SAT 98
== END 2018-09-09 11:35 | disposition home or self-care (01) ==
LOC: C.ER 08:24
DX: M25.551 Pain in right hip (principal); Z72.89 Other problems related to lifestyle; I10 Essential (primary) hypertension
CPT/HCPCS: 71045; 73502; 80053; 82550; 82948; 83735; 84100; 84484; 85025; 99285; G0480

== ENCOUNTER 2018-09-09 21:29 | Emergency (ER) | payer OTHER ==
[2018-09-09 21:29] VITALS: BMI 26.6
--- NOTE | 2018-09-09 22:26 | C.PDOC ---
History Of Present Illness 62 y/o M p/w R hip pain x 8 days. States fell onto R hip on [place]. Came to ED today, hip XR shows no fracture. Went home, took opiates prescribed by PMD Dr. Velasquez. States still with pain so came back to ED. Denies new injury, fever, vomiting. Time Seen by Provider: 09/09/18 21:52 Chief Complaint (Nursing): Lower Extremity Problem/Injury Past Medical History Vital Signs: Last Vital Signs Temp 98.6 F 09/09/18 21:43 Pulse 75 09/09/18 21:43 Resp 20 09/09/18 21:43 BP 167/79 H 09/09/18 21:43 Pulse Ox 100 09/09/18 21:43 - Medical History PMH: Arthritis (L HIP), Fractures (left femur), HTN Denies: Chronic Kidney Disease - [facility] Procedures COLONOSCOPY (04/03/15) ESOPHAGOGASTRODUODENOSCOPY [EGD] W/CLOSED BIOPSY (04/03/15) PACKED CELL TRANSFUSION (04/03/15) PHERESIS OF PLATELETS, SINGLE (12/20/17) REPOSITION R UP FEMUR WITH INTRAMED FIX, PERC APPROACH (12/20/17) TRANSFUSE AUTOL RED BLOOD CELLS IN PERIPH VEIN, PERC (12/20/17) VACCINATION NEC (05/08/15) Family History: States: Unknown Family Hx - Social History Hx Tobacco Use: No Hx Alcohol Use: Yes Hx Substance Use: No - Immunization History Hx Tetanus Toxoid Vaccination: Yes Hx Influenza Vaccination: Yes Hx Pneumococcal Vaccination: Yes Review Of Systems Except As Marked, All Systems Reviewed And Found Negative. Constitutional: Negative for: Fever Cardiovascular: Negative for: Chest Pain Physical Exam - Physical Exam Additional Physical Exam Comments: Gen: NAD Head: NC Skin: No rash Extremities: Tenderness over proximal lateral thigh. No deformity. Neuro: Alert, moves leg. ED Course And Treatment O2 Sat by Pulse Oximetry: 100 Medical Decision Making Medical Decision Making: I offered patient admission for pain control and disposition to short term rehab but patient refused and wished to go home. Patient on chronic opioids prescribed by his primary care. Disposition - Disposition Referrals: Paul Velasquez MD [Staff Provider] - Disposition: HOME/ ROUTINE Disposition Time: 22:24 Condition: STABLE Prescriptions: Naproxen [Naprosyn] 500 mg PO Q12H #30 tablet Instructions: Contusion (DC) Forms: [employer] (Turkmen) - Clinical Impression Clinical Impression: Right hip pain
[2018-09-10 02:09] VITALS: BP 130/80; PULSE 68; RESP 14; TEMP 97.5; O2SAT 97
== END 2018-09-10 02:09 | disposition home or self-care (01) ==
LOC: C.ER 21:29
DX: M25.551 Pain in right hip (principal); I10 Essential (primary) hypertension
CPT/HCPCS: 96372; 99283; J1885

== ENCOUNTER 2018-10-14 14:20 | Inpatient (IN) | payer OTHER ==
[2018-10-14 14:21] VITALS: BMI 26.6
--- NOTE | 2018-10-14 14:39 | C.PDOC ---
History Of Present Illness 62 year old male presents to ED with pain to his right hip after falling. Patient was intoxicated when he lost his balance and fell. Patient admits to pain with any type of movement of his leg. Patient denies any head injury, loss of consciousness, weakness, and numbness. Chief Complaint (Nursing): Lower Extremity Problem/Injury History Per: Patient History/Exam Limitations: intoxication Onset/Duration Of Symptoms: Hrs Current Symptoms Are (Timing): Still Present Additional History Per: Patient - Hip Description Of Injury: Fell Currently Unable To: Bend Or Move Past Medical History Reviewed: Historical Data, Nursing Documentation, Vital Signs Vital Signs: Last Vital Signs Temp 98.3 F 10/14/18 14: Pulse 88 10/14/18 14:27 Resp 12 10/14/18 14:27 BP 148/72 10/14/18 14: Pulse Ox 98 10/14/18 14:27 - Medical History PMH: Arthritis (L HIP), Fractures (left femur), HTN Denies: Chronic Kidney Disease Surgical History: No Surg Hx - [facility] Procedures COLONOSCOPY (04/03/15) ESOPHAGOGASTRODUODENOSCOPY [EGD] W/CLOSED BIOPSY (04/03/15) PACKED CELL TRANSFUSION (04/03/15) PHERESIS OF PLATELETS, SINGLE (12/20/17) REPOSITION R UP FEMUR WITH INTRAMED FIX, PERC APPROACH (12/20/17) TRANSFUSE AUTOL RED BLOOD CELLS IN PERIPH VEIN, PERC (12/20/17) VACCINATION NEC (05/08/15) Family History: States: Unknown Family Hx - Social History Hx Tobacco Use: No Hx Alcohol Use: Yes Hx Substance Use: No - Immunization History Hx Tetanus Toxoid Vaccination: Yes Hx Influenza Vaccination: Yes Hx Pneumococcal Vaccination: Yes Review Of Systems Constitutional: Negative for: Fever, Chills, Weakness Cardiovascular: Negative for: Chest Pain Respiratory: Negative for: Cough, Shortness of Breath Gastrointestinal: Negative for: Nausea, Vomiting, Abdominal Pain Musculoskeletal: Positive for: Other (Right hip pain) Neurological: Negative for: Weakness, Numbness, Confusion Physical Exam - Physical Exam Appears: Well, Non-toxic, No Acute Distress Skin: Normal Color, Warm, Dry Head: Atraumatic, Normacephalic Eye(s): bilateral: Normal Inspection Neck: Normal ROM, No Midline Cervical Tenderness, No Paracervical Tenderness Chest: Symmetrical, No Deformity Cardiovascular: Rhythm Regular Respiratory: Normal Breath Sounds, No Accessory Muscle Use Gastrointestinal/Abdominal: Soft, No Tenderness Back: No Vertebral Tenderness, No Paraspinal Tenderness Extremity: Tenderness (right lateral hip, externally rotated right leg), Capi llary Refill (<2 seconds), Other (Limited ROM to the right leg ) Extremity: Left: Atraumatic, Normal Color And Temperature Pulses: Left Radial: Normal, Right Radial: Normal Neurological/Psych: Oriented x3, Normal Speech, Normal Cognition ED Course And Treatment - Laboratory Results Result Diagrams: 10/14/18 15:18 10/14/18 15:18 O2 Sat by Pulse Oximetry: 98 (RA) - Radiology CXR: Interpreted by Me, Viewed By Me CXR Interpretation: Yes: No Acute Disease - Other Rad Right Hip X-ray X-Ray: Interpreted by Me, Viewed By Me Interpretation: Accession No. : [id number]. Patient Name / ID : MOO Porter / [id number]. Exam Date : 10/14/2018 15:10:28 ( Approved ). Study Comment : Sex / Age : M / 62Y. Creator : James Posada MD. Dictator : James Posada MD. Equipment Superintendent : Field Contact Person : James Posada MD. Approver2 : Report Date : 10/14/2018 16:20:46. My Comment : . Date of service: 10/14/2018. PROCEDURE: Pelvis right hip. HISTORY: fall. COMPARISON: None. TECHNIQUE: Standard protocol for this study/examination. FINDINGS: Oblique fracture extending from the greater trochanter through the inter trochanteric region. There is a component of impaction, angulation and varus deformity. Unremarkable left hip/orthopedic hardware as visualized. IMPRESSION: Acute fracture proximal right femur. Progress Note: Labs ordered with partial thromboplastin, drug screen, and prothrombin for patient. EKG, Chest one view ordered, Right hip X-ray ordered for patient. Morphine IVP and NaCl IV given to patient. Disposition - Disposition Disposition: HOSPITALIZED Disposition Time: 16:32 Condition: STABLE - Clinical Impression Clinical Impression: Hip fracture, intertrochanteric, ETOH abuse - PA / OYSTER CULLER / Resident Statement MD/DO has reviewed & agrees with the documentation as recorded. (Archana Mckeon) - Scribe Statement The provider has reviewed the documentation as recorded by the Scribe (Archana Mckeon) All medical record entries made by the Scribe were at my direction and personally dictated by me. I have reviewed the chart and agree that the record accurately reflects my personal performance of the history, physical exam, medical decision making, and the department course for this patient. I have also personally directed, reviewed, and agree with the discharge instructions and disposition. Decision To Admit - Pt Status Changed To: Hospital Disposition Of: Inpatient - Admit Certification Admit to Inpatient:: After my assessment, the patient will require hospitalization for at least two midnights. This is because of the severity of symptoms shown, intensity of services needed, and/or the medical risk in this patient being treated as an outpatient. - InPatient: Physician Admission Certification: I certify that this patient requires 2 or more midnights of care for the following reason:: patient will need surgery for hip fracture - . Bed Request Type: Regular Admitting Physician: Glenn Mena Patient Diagnosis: Hip fracture, intertrochanteric, ETOH abuse
[2018-10-14] MEDS ORDERED: Sodium Chloride 0.9% 500 ML IV STA (14:45)
[2018-10-14 15:23] LABS: BASO % 0.8 % (0.0-2.0); HEMOGLOBIN 9.2 g/dL (12.0-18.0); LYMPH # 0.8 K/uL (1.0-4.3); LYMPH % 14.5 % (20.0-40.0); MEAN CELL VOLUME 93.4 fL (80.0-94.0); MEAN CORPUSCULAR HEMOGLOBIN 33.7 pg (27.0-31.0); MEAN CORPUSCULAR HGB CONC 36.1 g/dL (33.0-37.0); MEAN PLATELET VOLUME 6.9 fL (7.2-11.7); MONO # 0.6 K/uL (0.0-0.8); MONO % 10.6 % (0.0-10.0); NEUT % 74.1 % (50.0-75.0); RBC 2.74 Mil/uL (4.40-5.90); RED CELL DISTRIBUTION WIDTH 15.7 % (11.5-14.5); WHITE BLOOD COUNT 5.3 K/uL (4.8-10.8)
[2018-10-14 15:31] LABS: INR 1.2; PROTHROMBIN TIME 12.7 SECONDS (9.7-12.2)
[2018-10-14 15:42] LABS: ALBUMIN 3.1 g/dL (3.5-5.0); ALT/SGPT 21 U/L (21-72); AST/SGOT 48 U/L (17-59); BLOOD UREA NITROGEN 7 mg/dL (9-20); GFR NON-AFRICAN AMERICAN > 60
--- NOTE | 2018-10-14 16:13 | RAD ---
Date of service: 10/14/2018 PROCEDURE: CHEST RADIOGRAPH, 1 VIEW HISTORY: trauma COMPARISON: 09/09/2018 FINDINGS: LUNGS: Multiple calcified granuloma. PLEURA: No pneumothorax or pleural fluid seen. CARDIOVASCULAR: No aortic atherosclerotic calcification present. Normal. OSSEOUS STRUCTURES: Sclerotic foci in numerous ribs suggestive of metastatic disease. VISUALIZED UPPER ABDOMEN: Normal. OTHER FINDINGS: Degenerative/posttraumatic changes left shoulder. IMPRESSION: No active pulmonary disease.No significant interval change compared to the prior examination(s).
--- NOTE | 2018-10-14 16:24 | RAD ---
Date of service: 10/14/2018 PROCEDURE: Pelvis right hip HISTORY: fall COMPARISON: None TECHNIQUE: Standard protocol for this study/examination. FINDINGS: Oblique fracture extending from the greater trochanter through the inter trochanteric region. There is a component of impaction, angulation and varus deformity. Unremarkable left hip/orthopedic hardware as visualized. IMPRESSION: Acute fracture proximal right femur.
[2018-10-14 16:43] LABS: BARBITURATES, UR NEGATIVE (NEGATIVE); BENZODIAZEPINES, UR NEGATIVE (NEGATIVE); PHENCYCLIDINE, UR NEGATIVE (NEGATIVE)
[2018-10-14 16:44] LABS: OPIATES, UR POSITIVE (NEGATIVE)
--- NOTE | 2018-10-14 16:51 | CT ---
Date of service: 10/14/2018 PROCEDURE: CT left lower extremity HISTORY: Acute hip fracture COMPARISON: 2018 TECHNIQUE: 2.5 mm axial acquisition and display. Coronal and sagittal reconstructions. Dose report (mGy-cm): 298.51 FINDINGS: Confirmation of findings identified on recent plain film radiographs. Comminuted fracture of the proximal right femur extending from the greater trochanter through the inter trochanteric region to the shaft distal to the lesser trochanter. There is a component of impaction and angulation with 1 shaft's with displacement of the major fracture fragments. Preserved femoral acetabular relationship. Multiple sclerotic lesions identified including right femoral head, sacrum, right iliac bone adjacent to the sacroiliac joint, right pelvic wing. Soft tissue swelling attests to the acuity of the fracture. IMPRESSION: Acute, comminuted fracture proximal right femur described in greater detail above. Sclerotic osseous metastatic disease. Findings were identified on a prior CT scan of the abdomen and pelvis 07/23/2018.
[2018-10-14] MEDS ORDERED: Morphine 4 MG/ML VIAL IVP PRN (18:17)
[2018-10-14] MEDS ORDERED: Multivitamin (MVI) 10 ML, Thiamine 100 MG, Folic Acid 1 MG in Sodium Chloride 0.9% 1,00... IV ONE (18:22)
--- NOTE | 2018-10-14 18:44 | CP.PCM.HP ---
History of Present Illness - History of Present Illness History of Present Illness: PGY1 Medicine History and Physical Exam Note for Dr. Herr This is a 62-year-old M with PMH of ETOH intoxication, Prostate Ca, BPH, Colon Ca, anemia, COPD, HTN, HLD, s/p mechanical fall and hip fx s/p left hip IM nailing who presents with R hip pain for several days. When asked about history of fall, the Patient shrugs and states "my leg is giving away on me." Patient admits to constant R-sided hip pain localized to the proximal femur region and radiating down to his groin. Patient rates the pain at 9/10 at its worst and states that it is constant. Patient says that he has been drinking about 8 cans of beer daily. Of note, Patient's friend also provided part of the history with the Patient's permission, and the Patient's friend states that he drinks "much more than that." Complete ROS could not be obtained due to Patient's alcohol intoxication. PMH: ETOH intoxication, Prostate Ca, BPH, Colon Ca, anemia, COPD, HTN, HLD, s/p mechanical fall and hip fx Allergies: Influenza virus vaccines Medications: Patient denies, though he was treated with Losartan 50mg, Crestor 5mg, and Tamsulosin 0.4mg in previous admission. Surgical History: s/p mechanical fall and L hip fx; s/p L hip IM nailing Family History: Unknown PMD: no PMD Pulmonology: Dr. Odell Present on Admission - Present on Admission Any Indicators Present on Admission: Yes History of DVT/PE: No History of Uncontrolled Diabetes: No Urinary Catheter: Yes Review of Systems - Review of Systems Systems not reviewed;Unavailable: Intoxicated Past Patient History - Infectious Disease Hx of Infectious Diseases: None - Tetanus Immunizations Tetanus Immunization: Unknown - Past Medical History & Family History Past Medical History?: Yes - Past Social History Smoking Status: Former Smoker - CARDIAC Hx Hypertension: Yes - PULMONARY Hx Respiratory Disorders: Yes Other/Comment: hx pleural effusion - NEUROLOGICAL Hx Neurological Disorder: No - HEENT Hx HEENT Problems: Yes Other/Comment: wear reading eyeglasses - RENAL Hx Chronic Kidney Disease: No - ENDOCRINE/METABOLIC Hx Endocrine Disorders: No - HEMATOLOGICAL/ONCOLOGICAL Hx Blood Disorders: Yes Hx Chemotherapy: Yes (5-6 years ago as per patient) Hx Cirrhosis: Yes Other/Comment: liver failure ----pt states he last drank beers 3 weeks ago - INTEGUMENTARY Hx Dermatological Problems: No - MUSCULOSKELETAL/RHEUMATOLOGICAL Hx Arthritis: Yes (L HIP) Hx Fractures: Yes (left femur) - GASTROINTESTINAL Hx Gastrointestinal Disorders: Yes Hx Liver Failure: Yes Other/Comment: alcohol abuse - GENITOURINARY/GYNECOLOGICAL Hx Genitourinary Disorders: Yes Hx Hematuria: Yes - PSYCHIATRIC Hx Substance Use: No - SURGICAL HISTORY Hx Surgeries: Yes Hx Open Reduction Internal Fixation: Yes Other/Comment: December-left femur fracture sx - ANESTHESIA Hx Anesthesia: Yes Hx Anesthesia Reactions: No Meds Allergies/Adverse Reactions: Allergies Allergy/AdvReac Type Severity Reaction Status Date / Time Influenza Virus Vaccines Allergy VOMITING Verified 07/26/18 14:03 Physical Exam - Constitutional Appears: Non-toxic, No Acute Distress, Chronically Ill - Head Exam Head Exam: ATRAUMATIC, NORMAL INSPECTION, NORMOCEPHALIC - Eye Exam Eye Exam: EOMI, Normal appearance Pupil Exam: NORMAL ACCOMODATION - ENT Exam ENT Exam: Mucous Membranes Moist - Neck Exam Neck exam: Positive for: Normal Inspection - Respiratory Exam Respiratory Exam: Clear to Auscultation Bilateral, NORMAL BREATHING PATTERN. absent: Decreased Breath Sounds, Rales, Wheezes - Cardiovascular Exam Cardiovascular Exam: REGULAR RHYTHM, +S1, +S2. absent: Diastolic murmur, Systolic Murmur - GI/Abdominal Exam GI & Abdominal Exam: Normal Bowel Sounds, Soft. absent: Distended, Rebound, Rigid, Tenderness - Exam External exam: NORMAL EXTERNAL EXAM. absent: Ecchymosis - Extremities Exam Extremities exam: Positive for: normal capillary refill, tenderness (at the proximal femur region ), pedal pulses present (throughout bilateral LE ). Negative for: calf tenderness, full ROM (decreased hip range of motion (R) ), joint swelling, pedal edema - Back Exam Back exam: NORMAL INSPECTION - Neurological Exam Neurological exam: Alert, Oriented x3 - Psychiatric Exam Psychiatric exam: Normal Affect, Normal Mood - Skin Skin Exam: Dry, Intact, Normal Color, Warm Results - Vital Signs Recent Vital Signs: Last Vital Signs Temp 98.3 F 10/14/18 15:52 Pulse 80 10/14/18 15:52 Resp 13 10/14/18 15:52 BP 156/75 H 10/14/18 15:52 Pulse Ox 98 02/05/19 18:07 - Labs Result Diagrams: 10/14/18 15:18 10/14/18 15:18 Labs: Laboratory Results - last 24 hr 10/14/18 10/14/18 10/14/18 15:18 15:18 15:18 WBC 5.3 RBC 2.74 L Hgb 9.2 L Hct 25.5 L MCV 93.4 MCH 33.7 H MCHC 36.1 RDW 15.7 H Plt Count 160 MPV 6.9 L Neut % (Auto) 74.1 Lymph % (Auto) 14.5 L [place] % (Auto) 10.6 H Eos % (Auto) 0.0 Baso % (Auto) 0.8 Neut # (Auto) 4.0 Lymph # (Auto) 0.8 L [place] # (Auto) 0.6 Eos # (Auto) 0.0 Baso # (Auto) 0.0 PT 12.7 H INR 1.2 APTT 34 Sodium 132 Potassium 3.9 Chloride 101 Carbon Dioxide 19 L Anion Gap 16 BUN 7 L Creatinine 0.6 L Est GFR ( Amer) > 60 Est GFR (Non-Af Amer) > 60 Random Glucose 110 Calcium 8.0 L Total Bilirubin 0.5 AST 48 ALT 21 Alkaline Phosphatase 171 H D Total Protein 6.0 L Albumin 3.1 L Globulin 2.9 Albumin/Globulin Ratio 1.0 Urine Opiates Screen Urine Methadone Screen Ur Barbiturates Screen Ur Phencyclidine Scrn Ur Amphetamines Screen U Benzodiazepines Scrn U Oth Cocaine Metabols U Cannabinoids Screen Alcohol, Quantitative 171 H Blood Type Antibody Screen 10/14/18 10/14/18 15:18 16:05 WBC RBC Hgb Hct MCV MCH MCHC RDW Plt Count MPV Neut % (Auto) Lymph % (Auto) [place] % (Auto) Eos % (Auto) Baso % (Auto) Neut # (Auto) Lymph # (Auto) [place] # (Auto) Eos # (Auto) Baso # (Auto) PT INR APTT Sodium Potassium Chloride Carbon Dioxide Anion Gap BUN Creatinine Est GFR ( Amer) Est GFR (Non-Af Amer) Random Glucose Calcium Total Bilirubin AST ALT Alkaline Phosphatase Total Protein Albumin Globulin Albumin/Globulin Ratio Urine Opiates Screen Positive H Urine Methadone Screen Negative Ur Barbiturates Screen Negative Ur Phencyclidine Scrn Negative Ur Amphetamines Screen Negative U Benzodiazepines Scrn Negative U Oth Cocaine Metabols Negative U Cannabinoids Screen Negative Alcohol, Quantitative Blood Type O POSITIVE Antibody Screen Negative Assessment & Plan - Assessment and Plan (Free Text) Assessment: 1. Acute ETOH intoxication - CIWA protocol - Ativan 1mg IVP Q4H PRN - Ativan 1mg PO Q4H PRN - Ativan taper protocol - F/U TSH, Lipase, Lipid panel, CBC, CMP for AM labs - Monitor vitals 2. Hip Fracture s/p Presumption of mechanical fall vs pathological fracture - CT R Hip: 1. Acute fracture proximal femur. 2. Sclerotic osseous metastatic disease (as seen on previous) - Morphine 2mg Q4 PRN for severe pain - F/U CT head without contrast - Surgery Consulted (Dr. Reginald Angulo) 3. Cardiac Clearance - F/U ECHO - EKG: NSR - Cardiology consulted (Dr. Pickens) rec appreciated - F/U Lipid panel - F/U TSH 4. History of COPD - F/U pulmonology recommendations (Dr. Odell) - Duonebs Q6H LORIE 5. History of Hyperlipidemia - F.U Lipid panel - Hold home meds 6. History of HTN - BP < 156/75 - Hold home meds 7. History of Anemia - Hgb 9.2 - Type and Screen 8. PPx: - GI: not indicated at this time - DVT: SCD Patient seen and case discussed in detail with Dr. Carmenza Matthews PGY1
[2018-10-14 19:38] LABS: URINE BILIRUBIN NEGATIVE (NEGATIVE); URINE CLARITY Clear (Clear); URINE COLOR Straw (YELLOW); URINE GLUCOSE (UA) NORMAL (Normal); URINE LEUKOCYTE ESTERASE NEG Leu/uL (Negative); URINE PROTEIN NEGATIVE (NEGATIVE); URINE UROBILINOGEN NORMAL mg/dL (0.2-1.0)
[2018-10-14 19:46] LABS: URINE BLOOD NEGATIVE (NEGATIVE)
[2018-10-14] MEDS: Albuterol-Ipratrop 3 mg / 0.5 (3 ml) UD INH SCH (20:26)
[2018-10-15] MEDS: Albuterol-Ipratrop 3 mg / 0.5 (3 ml) UD INH SCH ×4 (02:15→19:29)
[2018-10-15] MEDS ORDERED: Gadodiamide 287 mg/ml 20 ml IV ONE (02:45)
[2018-10-15 07:24] LABS: HEMOGLOBIN 8.1 g/dL (12.0-18.0); MEAN CELL VOLUME 93.7 fL (80.0-94.0); MEAN CORPUSCULAR HEMOGLOBIN 32.3 pg (27.0-31.0); MEAN CORPUSCULAR HGB CONC 34.5 g/dL (33.0-37.0); RBC 2.52 Mil/uL (4.40-5.90); RED CELL DISTRIBUTION WIDTH 15.6 % (11.5-14.5); WHITE BLOOD COUNT 6.2 K/uL (4.8-10.8)
--- NOTE | 2018-10-15 07:25 | CP.PCM.CON ---
History of Present Illness - History of Present Illness History of Present Illness: CC pre-op for ORIF, right hip HPI This is a 62-year-old M with PMH of ETOH intoxication, Prostate Ca, BPH, Colon Ca, anemia, COPD, HTN, HLD, s/p mechanical fall and hip fx s/p left hip IM nailing who presents with R hip pain for several days. When asked about history of fall, the Patient shrugs and states "my leg is giving away on me." Patient admits to constant R-sided hip pain localized to the proximal femur region and radiating down to his groin. Patient rates the pain at 9/10 at its worst and states that it is constant. Patient says that he has been drinking about 8 cans of beer daily. Of note, Patient's friend also provided part of the history with the Patient's permission, and the Patient's friend states that he drinks "much more than that." Complete ROS could not be obtained due to Patient's alcohol intoxication Past Patient History - Infectious Disease Hx of Infectious Diseases: None - Tetanus Immunizations Tetanus Immunization: Unknown - Past Medical History & Family History Past Medical History?: Yes - Past Social History Smoking Status: Former Smoker - CARDIAC Hx Cardiac Disorders: Yes Hx Hypertension: Yes - PULMONARY Hx Respiratory Disorders: Yes Hx Chronic Obstructive Pulmonary Disease (COPD): Yes Other/Comment: hx pleural effusion - NEUROLOGICAL Hx Neurological Disorder: No - HEENT Hx HEENT Problems: Yes Other/Comment: wear reading eyeglasses - RENAL Hx Chronic Kidney Disease: No - ENDOCRINE/METABOLIC Hx Endocrine Disorders: No - HEMATOLOGICAL/ONCOLOGICAL Hx Blood Disorders: Yes Hx Chemotherapy: Yes (5-6 years ago as per patient) Hx Cirrhosis: Yes Other/Comment: liver failure ----pt states he last drank beers 3 weeks ago - INTEGUMENTARY Hx Dermatological Problems: No - MUSCULOSKELETAL/RHEUMATOLOGICAL Hx Musculoskeletal Disorders: Yes Hx Arthritis: Yes (L HIP 2017) Hx Falls: Yes Hx Fractures: Yes (left femur 2017) - GASTROINTESTINAL Hx Gastrointestinal Disorders: Yes Hx Liver Failure: Yes Other/Comment: alcohol abuse - GENITOURINARY/GYNECOLOGICAL Hx Genitourinary Disorders: Yes Hx Hematuria: Yes - PSYCHIATRIC Hx Psychophysiologic Disorder: No Hx Substance Use: Yes - SURGICAL HISTORY Hx Surgeries: Yes Hx Open Reduction Internal Fixation: Yes Other/Comment: December-left femur fracture sx - ANESTHESIA Hx Anesthesia: Yes Hx Anesthesia Reactions: No Meds Allergies/Adverse Reactions: Allergies Allergy/AdvReac Type Severity Reaction Status Date / Time Influenza Virus Vaccines Allergy VOMITING Verified 07/26/18 14:03 - Medications Medications: Current Medications Albuterol/Ipratropium (Duoneb 3 Mg/0.5 Mg (3 Ml) Ud) 3 ml INH RQ6 LORIE Last Admin: 10/15/18 02:15 Dose: 3 ml Lorazepam (Ativan) 1 mg IVP Q4H PRN PRN Reason: Symptoms of alcohol withdrawl Lorazepam (Ativan) 2 mg PO Q4 LORIE; Taper Stop: 10/19/18 18:29 Last Admin: 10/15/18 04:20 Dose: 2 mg Lorazepam (Ativan) 1 mg PO Q4H PRN PRN Reason: Symptoms of alcohol withdrawl Morphine Sulfate (Morphine) 2 mg IVP Q4 PRN PRN Reason: Pain, severe (8-10) Last Admin: 10/14/18 18:44 Dose: 2 mg Results - Vital Signs Recent Vital Signs: Last Vital Signs Temp 99 F 10/14/18 23:30 Pulse 92 H 10/14/18 23:30 Resp 20 10/14/18 23:30 BP 165/71 H 10/14/18 23:30 Pulse Ox 97 10/14/18 23:30 - Labs Result Diagrams: 10/14/18 15:18 10/14/18 15:18 Labs: Laboratory Results - last 24 hr 10/14/18 10/14/18 10/14/18 15:18 15:18 15:18 WBC 5.3 RBC 2.74 L Hgb 9.2 L Hct 25.5 L MCV 93.4 MCH 33.7 H MCHC 36.1 RDW 15.7 H Plt Count 160 MPV 6.9 L Neut % (Auto) 74.1 Lymph % (Auto) 14.5 L [place] % (Auto) 10.6 H Eos % (Auto) 0.0 Baso % (Auto) 0.8 Neut # (Auto) 4.0 Lymph # (Auto) 0.8 L [place] # (Auto) 0.6 Eos # (Auto) 0.0 Baso # (Auto) 0.0 PT 12.7 H INR 1.2 APTT 34 Sodium 132 Potassium 3.9 Chloride 101 Carbon Dioxide 19 L Anion Gap 16 BUN 7 L Creatinine 0.6 L Est GFR ( Amer) > 60 Est GFR (Non-Af Amer) > 60 Random Glucose 110 Calcium 8.0 L Total Bilirubin 0.5 AST 48 ALT 21 Alkaline Phosphatase 171 H D Ammonia Total Protein 6.0 L Albumin 3.1 L Globulin 2.9 Albumin/Globulin Ratio 1.0 Triglycerides Cholesterol LDL Cholesterol Direct HDL Cholesterol Amylase Lipase TSH 3rd Generation Urine Color Urine Clarity Urine pH Ur Specific [place] Urine Protein Urine Glucose (UA) Urine Ketones Urine Blood Urine Nitrate Urine Bilirubin Urine Urobilinogen Ur Leukocyte Esterase Urine WBC (Auto) Urine RBC (Auto) Urine Opiates Screen Urine Methadone Screen Ur Barbiturates Screen Ur Phencyclidine Scrn Ur Amphetamines Screen U Benzodiazepines Scrn U Oth Cocaine Metabols U Cannabinoids Screen Alcohol, Quantitative 171 H Blood Type Antibody Screen 10/14/18 10/14/18 10/14/18 15:18 16:05 19:13 WBC RBC Hgb Hct MCV MCH MCHC RDW Plt Count MPV Neut % (Auto) Lymph % (Auto) [place] % (Auto) Eos % (Auto) Baso % (Auto) Neut # (Auto) Lymph # (Auto) [place] # (Auto) Eos # (Auto) Baso # (Auto) PT INR APTT Sodium Potassium Chloride Carbon Dioxide Anion Gap BUN Creatinine Est GFR ( Amer) Est GFR (Non-Af Amer) Random Glucose Calcium Total Bilirubin AST ALT Alkaline Phosphatase Ammonia Total Protein Albumin Globulin Albumin/Globulin Ratio Triglycerides Cholesterol LDL Cholesterol Direct HDL Cholesterol Amylase Lipase TSH 3rd Generation Urine Color Straw Urine Clarity Clear Urine pH 6.0 Ur Specific [place] 1.002 L Urine Protein Negative Urine Glucose (UA) Normal Urine Ketones Negative Urine Blood Negative Urine Nitrate Negative Urine Bilirubin Negative Urine Urobilinogen Normal Ur Leukocyte Esterase Neg Urine WBC (Auto) < 1 Urine RBC (Auto) < 1 Urine Opiates Screen Positive H Urine Methadone Screen Negative Ur Barbiturates Screen Negative Ur Phencyclidine Scrn Negative Ur Amphetamines Screen Negative U Benzodiazepines Scrn Negative U Oth Cocaine Metabols Negative U Cannabinoids Screen Negative Alcohol, Quantitative Blood Type O POSITIVE Antibody Screen Negative 10/14/18 10/14/18 20:13 20:13 WBC RBC Hgb Hct MCV MCH MCHC RDW Plt Count MPV Neut % (Auto) Lymph % (Auto) [place] % (Auto) Eos % (Auto) Baso % (Auto) Neut # (Auto) Lymph # (Auto) [place] # (Auto) Eos # (Auto) Baso # (Auto) PT INR APTT Sodium Potassium Chloride Carbon Dioxide Anion Gap BUN Creatinine Est GFR ( Amer) Est GFR (Non-Af Amer) Random Glucose Calcium Total Bilirubin AST ALT Alkaline Phosphatase Ammonia 14 D Total Protein Albumin Globulin Albumin/Globulin Ratio Triglycerides 56 Cholesterol 114 LDL Cholesterol Direct 81 HDL Cholesterol 38 Amylase 128 H Lipase 95 TSH 3rd Generation 0.88 Urine Color Urine Clarity Urine pH Ur Specific [place] Urine Protein Urine Glucose (UA) Urine Ketones Urine Blood Urine Nitrate Urine Bilirubin Urine Urobilinogen Ur Leukocyte Esterase Urine WBC (Auto) Urine RBC (Auto) Urine Opiates Screen Urine Methadone Screen Ur Barbiturates Screen Ur Phencyclidine Scrn Ur Amphetamines Screen U Benzodiazepines Scrn U Oth Cocaine Metabols U Cannabinoids Screen Alcohol, Quantitative Blood Type Antibody Screen Assessment & Plan - Assessment and Plan (Free Text) Assessment: Fx of right hip Plan: ECHO May go for ORIF of right hip with acceptable risk
--- NOTE | 2018-10-15 08:13 | CP.PCM.CON ---
History of Present Illness - History of Present Illness History of Present Illness: Orthopedic consultation Dr. Fonseca\ 62M complains of right hip pain after fall. He is known to service from left hip ORIF 12/22/2017. Denies CP/SOb/dizziness/numbness/tingling. Denies pain in other extremities. Patient states he his tired. +ETOH abuse, KELSEY 171 on admission Review of Systems - Review of Systems All systems: reviewed and no additional remarkable complaints except - Constitutional Constitutional: Lethargy - Cardiovascular Cardiovascular: As Per HPI - Respiratory Respiratory: As Per HPI - Gastrointestinal Additional comments: no nv/v - Musculoskeletal Musculoskeletal: As Per HPI - Integumentary Additional comments: denies - Neurological Neurological: As Per HPI - Hematologic/Lymphatic Hematologic: absent: As Per HPI, Easy Bleeding, Easy Bruising, Lymphadenopathy, Other Past Patient History - Infectious Disease Hx of Infectious Diseases: None - Tetanus Immunizations Tetanus Immunization: Unknown - Past Medical History & Family History Past Medical History?: Yes Past Family History: Reviewed and not pertinent - Past Social History Smoking Status: Former Smoker - CARDIAC Hx Cardiac Disorders: Yes Hx Hypertension: Yes - PULMONARY Hx Respiratory Disorders: Yes Hx Chronic Obstructive Pulmonary Disease (COPD): Yes Other/Comment: hx pleural effusion - NEUROLOGICAL Hx Neurological Disorder: No - HEENT Hx HEENT Problems: Yes Other/Comment: wear reading eyeglasses - RENAL Hx Chronic Kidney Disease: No - ENDOCRINE/METABOLIC Hx Endocrine Disorders: No - HEMATOLOGICAL/ONCOLOGICAL Hx Blood Disorders: Yes Hx Chemotherapy: Yes (5-6 years ago as per patient) Hx Cirrhosis: Yes Other/Comment: liver failure - INTEGUMENTARY Hx Dermatological Problems: No - MUSCULOSKELETAL/RHEUMATOLOGICAL Hx Musculoskeletal Disorders: Yes Hx Arthritis: Yes (L HIP 2018) Hx Falls: Yes Hx Fractures: Yes (left intertroch hip fx 2018) - GASTROINTESTINAL Hx Gastrointestinal Disorders: Yes Hx Liver Failure: Yes Other/Comment: alcohol abuse - GENITOURINARY/GYNECOLOGICAL Hx Genitourinary Disorders: Yes Hx Hematuria: Yes - PSYCHIATRIC Hx Psychophysiologic Disorder: No Hx Substance Use: Yes - SURGICAL HISTORY Hx Surgeries: Yes Hx Open Reduction Internal Fixation: Yes (Left hip 12/22/2017) - ANESTHESIA Hx Anesthesia: Yes Hx Anesthesia Reactions: No Meds Allergies/Adverse Reactions: Allergies Allergy/AdvReac Type Severity Reaction Status Date / Time Influenza Virus Vaccines Allergy VOMITING Verified 07/26/18 14:03 - Medications Medications: Current Medications Albuterol/Ipratropium (Duoneb 3 Mg/0.5 Mg (3 Ml) Ud) 3 ml INH RQ6 LORIE Last Admin: 10/15/18 07:32 Dose: 3 ml Lorazepam (Ativan) 1 mg IVP Q4H PRN PRN Reason: Symptoms of alcohol withdrawl Lorazepam (Ativan) 2 mg PO Q4 LORIE; Taper Stop: 10/19/18 18:29 Last Admin: 10/15/18 04:20 Dose: 2 mg Lorazepam (Ativan) 1 mg PO Q4H PRN PRN Reason: Symptoms of alcohol withdrawl Morphine Sulfate (Morphine) 2 mg IVP Q4 PRN PRN Reason: Pain, severe (8-10) Last Admin: 10/14/18 18:44 Dose: 2 mg Physical Exam - Constitutional Appears: Cachectic Additional comments: lethargic - Head Exam Head Exam: ATRAUMATIC - Neck Exam Neck exam: Positive for: Full Rom, Normal Inspection - Respiratory Exam Respiratory Exam: NORMAL BREATHING PATTERN - Cardiovascular Exam Additional comments: +DP/PT pulses - Expanded Lower Extremities Exam Right Hip exam: external rotation, shortening, tenderness Ankle exam: FULL ROM, NORMAL INSPECTION Neuro vacular tendon exam: no vascular compromise - Psychiatric Exam Psychiatric exam: Normal Affect, Normal Mood - Skin Skin Exam: Dry, Intact, Normal Color, Warm Results - Vital Signs Recent Vital Signs: Last Vital Signs Temp 99 F 10/14/18 23:30 Pulse 92 H 10/14/18 23:30 Resp 20 10/14/18 23:30 BP 165/71 H 10/14/18 23:30 Pulse Ox 97 10/14/18 23:30 - Labs Result Diagrams: 10/15/18 07:17 10/14/18 15:18 Labs: Laboratory Results - last 24 hr 10/14/18 10/14/18 10/14/18 15:18 15:18 15:18 WBC 5.3 RBC 2.74 L Hgb 9.2 L Hct 25.5 L MCV 93.4 MCH 33.7 H MCHC 36.1 RDW 15.7 H Plt Count 160 MPV 6.9 L Neut % (Auto) 74.1 Lymph % (Auto) 14.5 L [place] % (Auto) 10.6 H Eos % (Auto) 0.0 Baso % (Auto) 0.8 Neut # (Auto) 4.0 Lymph # (Auto) 0.8 L [place] # (Auto) 0.6 Eos # (Auto) 0.0 Baso # (Auto) 0.0 PT 12.7 H INR 1.2 APTT 34 Sodium 132 Potassium 3.9 Chloride 101 Carbon Dioxide 19 L Anion Gap 16 BUN 7 L Creatinine 0.6 L Est GFR ( Amer) > 60 Est GFR (Non-Af Amer) > 60 Random Glucose 110 Calcium 8.0 L Total Bilirubin 0.5 AST 48 ALT 21 Alkaline Phosphatase 171 H D Ammonia Total Protein 6.0 L Albumin 3.1 L Globulin 2.9 Albumin/Globulin Ratio 1.0 Triglycerides Cholesterol LDL Cholesterol Direct HDL Cholesterol Amylase Lipase TSH 3rd Generation Urine Color Urine Clarity Urine pH Ur Specific [place] Urine Protein Urine Glucose (UA) Urine Ketones Urine Blood Urine Nitrate Urine Bilirubin Urine Urobilinogen Ur Leukocyte Esterase Urine WBC (Auto) Urine RBC (Auto) Urine Opiates Screen Urine Methadone Screen Ur Barbiturates Screen Ur Phencyclidine Scrn Ur Amphetamines Screen U Benzodiazepines Scrn U Oth Cocaine Metabols U Cannabinoids Screen Alcohol, Quantitative 171 H Blood Type Antibody Screen 10/14/18 10/14/18 10/14/18 15:18 16:05 19:13 WBC RBC Hgb Hct MCV MCH MCHC RDW Plt Count MPV Neut % (Auto) Lymph % (Auto) [place] % (Auto) Eos % (Auto) Baso % (Auto) Neut # (Auto) Lymph # (Auto) [place] # (Auto) Eos # (Auto) Baso # (Auto) PT INR APTT Sodium Potassium Chloride Carbon Dioxide Anion Gap BUN Creatinine Est GFR ( Amer) Est GFR (Non-Af Amer) Random Glucose Calcium Total Bilirubin AST ALT Alkaline Phosphatase Ammonia Total Protein Albumin Globulin Albumin/Globulin Ratio Triglycerides Cholesterol LDL Cholesterol Direct HDL Cholesterol Amylase Lipase TSH 3rd Generation Urine Color Straw Urine Clarity Clear Urine pH 6.0 Ur Specific [place] 1.002 L Urine Protein Negative Urine Glucose (UA) Normal Urine Ketones Negative Urine Blood Negative Urine Nitrate Negative Urine Bilirubin Negative Urine Urobilinogen Normal Ur Leukocyte Esterase Neg Urine WBC (Auto) < 1 Urine RBC (Auto) < 1 Urine Opiates Screen Positive H Urine Methadone Screen Negative Ur Barbiturates Screen Negative Ur Phencyclidine Scrn Negative Ur Amphetamines Screen Negative U Benzodiazepines Scrn Negative U Oth Cocaine Metabols Negative U Cannabinoids Screen Negative Alcohol, Quantitative Blood Type O POSITIVE Antibody Screen Negative 10/14/18 10/14/18 10/15/18 20:13 20:13 07:17 WBC 6.2 RBC 2.52 L Hgb 8.1 L Hct 23.6 L MCV 93.7 MCH 32.3 H MCHC 34.5 RDW 15.6 H Plt Count 133 MPV 7.0 L Neut % (Auto) Lymph % (Auto) [place] % (Auto) Eos % (Auto) Baso % (Auto) Neut # (Auto) Lymph # (Auto) [place] # (Auto) Eos # (Auto) Baso # (Auto) PT INR APTT Sodium Potassium Chloride Carbon Dioxide Anion Gap BUN Creatinine Est GFR ( Amer) Est GFR (Non-Af Amer) Random Glucose Calcium Total Bilirubin AST ALT Alkaline Phosphatase Ammonia 14 D Total Protein Albumin Globulin Albumin/Globulin Ratio Triglycerides 56 Cholesterol 114 LDL Cholesterol Direct 81 HDL Cholesterol 38 Amylase 128 H Lipase 95 TSH 3rd Generation 0.88 Urine Color Urine Clarity Urine pH Ur Specific [place] Urine Protein Urine Glucose (UA) Urine Ketones Urine Blood Urine Nitrate Urine Bilirubin Urine Urobilinogen Ur Leukocyte Esterase Urine WBC (Auto) Urine RBC (Auto) Urine Opiates Screen Urine Methadone Screen Ur Barbiturates Screen Ur Phencyclidine Scrn Ur Amphetamines Screen U Benzodiazepines Scrn U Oth Cocaine Metabols U Cannabinoids Screen Alcohol, Quantitative Blood Type Antibody Screen - Impressions Impression: Patient Name / ID : MOO KEYES R / [id number] Exam Date : 10/14/2018 16:08:02 ( Approved ) Study Comment : Sex / Age : M / 62Y Creator : Francisca Licona Dictator : James Posada MD Md Pediatric Allergist : Voice Instructor : James Posada MD Approver2 : Report Date : 10/14/2018 16:21:35 My Comment : Date of service: 10/14/2018 PROCEDURE: CT left lower extremity HISTORY: Acute hip fracture COMPARISON: 2018 TECHNIQUE: 2.5 mm axial acquisition and display. Coronal and sagittal reconstructions. Dose report (mGy-cm): 298.51 FINDINGS: Confirmation of findings identified on recent plain film radiographs. Comminuted fracture of the proximal right femur extending from the greater trochanter through the inter trochanteric region to the shaft distal to the lesser trochanter. There is a component of impaction and angulation with 1 shaft's with displacement of the major fracture fragments. Preserved femoral acetabular relationship. Multiple sclerotic lesions identified including right femoral head, sacrum, right iliac bone adjacent to the sacroiliac joint, right pelvic wing. Soft tissue swelling attests to the acuity of the fracture. IMPRESSION: Acute, comminuted fracture proximal right femur described in greater detail above. Sclerotic osseous metastatic disease. Findings were identified on a prior CT scan of the abdomen and pelvis 07/23/2018. Assessment & Plan (1) Fracture, intertrochanteric, right femur Assessment and Plan: plan OR 2/7 expect h/h to drop further from fracture and from surgery, for transfusion today labs reviewed, u/a neg T&C 4 units SCDs for VTE proph check vitamin D d/w Dr. Fonseca, agrees with above Status: Acute
--- NOTE | 2018-10-15 09:10 | CP.PCM.PN ---
<Hung Matthews - Last Filed: 10/15/18 11:15> Subjective - Date & Time of Evaluation Date of Evaluation: 10/15/18 Time of Evaluation: 09:10 - Subjective Subjective: PGY1 Medicine Progress Note for Dr. Villar Patient was seen and evaluated at bedside this morning. A&Ox3. Patient denies feeling agitation, and/or tremors. Patient continues to admit to pain in his right hip. Patient otherwise denies chest pain, abdominal pain, shortness of breath, back pain, numbness/tingling, dizziness, headache, nausea, and/or vomiting. Objective - Vital Signs/Intake and Output Vital Signs (last 24 hours): Temp Pulse Resp BP Pulse Ox 100.7 F H 91 H 18 160/76 H 100 10/15/18 07:00 10/15/18 07:00 10/15/18 07:00 10/15/18 07:00 10/15/18 07:00 Intake and Output: 10/15/18 10/15/18 06:59 18:59 Intake Total 1408 Output Total 700 Balance 708 - Medications Medications: Current Medications Acetaminophen (Tylenol 325mg Tab) 650 mg PO STAT STA Stop: 10/15/18 09:10 Albuterol/Ipratropium (Duoneb 3 Mg/0.5 Mg (3 Ml) Ud) 3 ml INH RQ6 LORIE Last Admin: 10/15/18 07:32 Dose: 3 ml Lorazepam (Ativan) 1 mg IVP Q4H PRN PRN Reason: Symptoms of alcohol withdrawl Lorazepam (Ativan) 2 mg PO Q4 LORIE; Taper Stop: 10/19/18 18:29 Last Admin: 10/15/18 04:20 Dose: 2 mg Lorazepam (Ativan) 1 mg PO Q4H PRN PRN Reason: Symptoms of alcohol withdrawl Morphine Sulfate (Morphine) 2 mg IVP Q4 PRN PRN Reason: Pain, severe (8-10) Last Admin: 10/14/18 18:44 Dose: 2 mg - Labs Labs: 10/15/18 07:17 10/14/18 15:18 PT 12.7 SECONDS (9.7-12.2) H 10/14/18 15:18 INR 1.2 10/14/18 15:18 APTT 34 SECONDS (21-34) 10/14/18 15:18 - Additional Findings Additional findings: - Constitutional Appears: Non-toxic, No Acute Distress, Chronically Ill - Head Exam Head Exam: ATRAUMATIC, NORMAL INSPECTION, NORMOCEPHALIC - Eye Exam Eye Exam: EOMI, Normal appearance Pupil Exam: NORMAL ACCOMODATION - ENT Exam ENT Exam: Mucous Membranes Moist - Neck Exam Neck exam: Positive for: Normal Inspection - Respiratory Exam Respiratory Exam: Clear to Auscultation Bilateral, NORMAL BREATHING PATTERN. absent: Decreased Breath Sounds, Rales, Wheezes - Cardiovascular Exam Cardiovascular Exam: REGULAR RHYTHM, +S1, +S2. absent: Diastolic murmur, Systolic Murmur - GI/Abdominal Exam GI & Abdominal Exam: Normal Bowel Sounds, Soft. absent: Distended, Rebound, Rigid, Tenderness - Exam External exam: NORMAL EXTERNAL EXAM. absent: Ecchymosis - Extremities Exam Extremities exam: Positive for: normal capillary refill, tenderness (at the proximal femur region ), pedal pulses present (throughout bilateral LE ). Negative for: calf tenderness, full ROM (decreased hip range of motion (R) ), joint swelling, pedal edema - Back Exam Back exam: NORMAL INSPECTION - Neurological Exam Neurological exam: Alert, Oriented x3 Patient has mild tremor when his hands are stretched out - Psychiatric Exam Psychiatric exam: Normal Affect, Normal Mood no agitation - Skin Skin Exam: Dry, Intact, Normal Color, Warm Assessment and Plan - Assessment and Plan (Free Text) Assessment: 1. Acute ETOH intoxication - CIWA protocol - Ativan 1mg IVP Q4H PRN - Ativan 1mg PO Q4H PRN - Ativan taper protocol - Monitor CBC, CMP - Lipase within normal limits - IVF @75mL/Hr - Monitor vitals 2. Hip Fracture s/p Presumption of mechanical fall vs pathological fracture - CT R Hip: 1. Acute fracture proximal femur. 2. Sclerotic osseous metastatic disease (as seen on previous) - Morphine 2mg Q4 PRN for severe pain - F/U CT head without contrast report - Surgery Consulted (Dr. Reginald Angulo) 3. Cardiac Clearance - F/U ECHO report - EKG: NSR - Cardiology consulted (Dr. Pickens) rec appreciated - Lipid panel within normal limits - TSH within normal limits 4. History of COPD - F/U pulmonology recommendations (Dr. Odell) - Duonebs Q6H LORIE 5. History of Hyperlipidemia - Lipid panel within normal limits - Hold home meds 6. History of HTN - BP < 156/75 - Hold home meds 7. History of Anemia - Hgb 9.2 --> 8.1 2/6 - Type and Screen - Type and cross - Per Orthopedic team, recommend transfusion prior to surgery - Vitamin D level ordered - 2 units blood transfusion order placed; will order 2 more units - Benadryl and Tylenol to be administered prior to each transfusion 8. PPx: - GI: not indicated at this time - DVT: SCD Patient seen and case discussed in detail with Dr. Carmenza Matthews PGY1 <Derek Villar H - Last Filed: 10/15/18 14:53> Objective - Vital Signs/Intake and Output Vital Signs (last 24 hours): Temp Pulse Resp BP Pulse Ox 100.7 F H 91 H 18 160/76 H 100 10/15/18 09:32 10/15/18 07:00 10/15/18 07:00 10/15/18 07:00 10/15/18 07:00 Intake and Output: 10/15/18 10/15/18 06:59 18:59 Intake Total 1408 630 Output Total 700 Balance 708 630 - Medications Medications: Current Medications Acetaminophen (Tylenol 325mg Tab) 650 mg PO BID PRN PRN Reason: Anaphylaxis Albuterol/Ipratropium (Duoneb 3 Mg/0.5 Mg (3 Ml) Ud) 3 ml INH RQ6 LORIE Last Admin: 10/15/18 13:23 Dose: 3 ml Diphenhydramine HCl (Benadryl) 25 mg PO BID PRN PRN Reason: Anaphylaxis Sodium Chloride (Sodium Chloride 0.9%) 1,000 mls @ 75 mls/hr IV .[id number] LORIE Lorazepam (Ativan) 1 mg IVP Q4H PRN PRN Reason: Symptoms of alcohol withdrawl Lorazepam (Ativan) 2 mg PO Q4 LORIE; Taper Stop: 10/19/18 18:29 Last Admin: 10/15/18 11:52 Dose: Not Given Lorazepam (Ativan) 1 mg PO Q4H PRN PRN Reason: Symptoms of alcohol withdrawl Morphine Sulfate (Morphine) 2 mg IVP Q4 PRN PRN Reason: Pain, severe (8-10) Last Admin: 10/14/18 18:44 Dose: 2 mg - Labs Labs: 10/15/18 07:17 10/14/18 15:18 PT 12.7 SECONDS (9.7-12.2) H 10/14/18 15:18 INR 1.2 10/14/18 15:18 APTT 34 SECONDS (21-34) 10/14/18 15:18 Attending/Attestation - Attestation I have personally seen and examined this patient.: Yes I have fully participated in the care of the patient.: Yes I have reviewed all pertinent clinical information, including history, physical exam and plan: Yes Notes (Text): 10/15/18 14:51 Medical attending: Patient was seen and examined by me. Agree with the above note by the resident The patient was not in any acute distress - he was very sleepy - likely from receiving IV ativan. He is currently on CIWA with a ativan and also he is pending transfusion since the Hgb is low. As mentioned above he has a R hip fracture and pending surgical intervention at some point Derek Villar
--- NOTE | 2018-10-15 09:18 | CT ---
Date of service: 10/15/2018 PROCEDURE: CT HEAD WITHOUT CONTRAST. HISTORY: Head injury. Fall. COMPARISON: 01/25/2018 TECHNIQUE: Axial computed tomography images were obtained through the head/brain without intravenous contrast. Radiation dose: Total exam DLP = 1070.45 mGy-cm. This CT exam was performed using one or more of the following dose reduction techniques: Automated exposure control, adjustment of the mA and/or kV according to patient size, and/or use of iterative reconstruction technique. FINDINGS: HEMORRHAGE: No intracranial hemorrhage. BRAIN: No mass effect or edema. Scattered focal lucencies in the subcortical and periventricular white matter suggestive for chronic microvascular ischemic change. Diffuse generalized parenchymal atrophy. Punctate left basal ganglia calcification. Punctate right basal ganglia and right caudate head lacunar infarcts. VENTRICLES: Unremarkable. No hydrocephalus. CALVARIUM: Small bony exostosis emanating off the anterior left frontal cranium. PARANASAL SINUSES: Unremarkable as visualized. No significant inflammatory changes. MASTOID AIR CELLS: Unremarkable as visualized. No inflammatory changes. OTHER FINDINGS: Intracranial arterial calcifications. Some motion artifact at the TMJ joints somewhat limit evaluation at that level. IMPRESSION: Diffuse generalized parenchymal atrophy. Chronic microvascular ischemic change. Small lacunar infarcts in the right basal ganglia and right caudate head. If symptoms persists, consider correlation with MRI.
[2018-10-15] MEDS ORDERED: Sodium Chloride 0.9% 1,000 ML IV SCH (11:00)
--- NOTE | 2018-10-15 18:56 | CARD ---
APPROVED REPORT Date of service: 10/15/2018 EXAM: Two-dimensional and M-mode echocardiogram with Doppler and color Doppler. Other Information Quality : TDSRhythm : INDICATION Pre-Op COPD RISK FACTORS Hypertension Hyperlipidemia 2D DIMENSIONS IVSd0.8 (0.7-1.1cm)Aortic Root (2D)2.8 (2.0-3.7cm) LVDd4.7 (3.9-5.9cm)PWd1.0 (0.7-1.1cm) LA Zcsagm56 (18-58mL)LVDs2.9 (2.5-4.0cm) FS (%) 38.3 %LVEF (%)68.5 (>50%) LVEF (Sahu's)57.72 % Mitral Valve MV E Cjcfwylh53.6cm/sMV A Hxwpiaiu110.9cm/sE/A ratio0.7 TDI Lateral E' Peak V10.91cm/sMedial E' Peak V10.26cm/sE/Lateral E'8.2 E/Medial E'8.7 LEFT VENTRICLE The left ventricle is normal size. There is mild concentric left ventricular hypertrophy. Left ventricle systolic function is normal. The Ejection Fraction is 65-70%. There is normal LV segmental wall motion. Transmitral Doppler flow pattern is Grade I-abnormal relaxation pattern. There is no ventricular septal defect visualized. RIGHT VENTRICLE The right ventricle is normal size. The right ventricular systolic function is normal. ATRIA The left atrium is mildly dilated. The right atrium size is normal. AORTIC VALVE The aortic valve is sclerotic. The aortic valve is tri-cuspid. No aortic regurgitation is present. There is no aortic valvular stenosis. MITRAL VALVE Sub valvular sclerosis There is no evidence of mitral valve prolapse. There is no mitral valve regurgitation noted. TRICUSPID VALVE The tricuspid valve is normal in structure. There is trace tricuspid regurgitation. Right ventricular systolic pressure is estimated at less than 30 mmHg. There is no pulmonary hypertension. PULMONIC VALVE The pulmonary valve is normal in structure. There is no pulmonic valvular regurgitation. GREAT VESSELS The aortic root is normal in size. The ascending aorta is normal in size. The IVC is normal in size and collapses >50% with inspiration. PERICARDIAL EFFUSION There is no pericardial effusion. <Conclusion> There is mild concentric left ventricular hypertrophy. Left ventricle systolic function is normal. The Ejection Fraction is 65-70%. Transmitral Doppler flow pattern is Grade I-abnormal relaxation pattern.
--- NOTE | 2018-10-15 19:03 | RAD ---
Date of service: 10/15/2018 PROCEDURE: Bone survey HISTORY: per Dr. Parker, bony metastasis COMPARISON: Not available TECHNIQUE: Bone survey examination includes AP and lateral skull, AP and lateral cervical, thoracic and lumbar spine and AP radiograph of the upper and lower extremities. FINDINGS: Sclerotic metastasis in the left frontal calvarium. Multiple sclerotic rib metastases. Mild anterior wedge compression deformity of the T12 and L1 vertebral bodies. Sclerotic metastasis in the T12 vertebra. Sclerotic metastasis in the L2 3 and 4 vertebrae. Sclerotic metastases in both iliac wings, right greater than left. Oblique displaced intertrochanteric fracture of the right hip. Fracture of the left inferior pubic ramus of indeterminate chronicity. Status post ORIF left hip fracture. IMPRESSION: Multiple sclerotic skeletal metastases as described. Oblique displaced intertrochanteric fracture of the right hip.
[2018-10-16] MEDS: Albuterol-Ipratrop 3 mg / 0.5 (3 ml) UD INH SCH ×3 (01:22→14:12)
[2018-10-16 07:04] LABS: HEMOGLOBIN 9.8 g/dL (12.0-18.0); MEAN CELL VOLUME 91.8 fL (80.0-94.0); MEAN CORPUSCULAR HEMOGLOBIN 31.9 pg (27.0-31.0); MEAN CORPUSCULAR HGB CONC 34.7 g/dL (33.0-37.0); MEAN PLATELET VOLUME 7.3 fL (7.2-11.7); RBC 3.06 Mil/uL (4.40-5.90); RED CELL DISTRIBUTION WIDTH 17.5 % (11.5-14.5); WHITE BLOOD COUNT 8.5 K/uL (4.8-10.8)
--- NOTE | 2018-10-16 08:00 | CP.PCM.PN ---
Subjective - Date & Time of Evaluation Date of Evaluation: 10/16/18 Time of Evaluation: 07:30 - Subjective Subjective: Orthopedic progress note Patient seen and examined at bedside. Drowsy but able to respond to cues. Pain well controlled. R hip surgery cancelled due to MRI findings suggestive of neoplastic bone lesion at fracture site. Pending arrangements for transfer to facility for orthopedic oncology care. Objective - Vital Signs/Intake and Output Vital Signs (last 24 hours): Temp Pulse Resp BP Pulse Ox 99.3 F 78 20 143/71 98 10/16/18 01:52 10/16/18 01:52 10/16/18 01:52 10/16/18 01:52 10/15/18 23:30 Intake and Output: 10/16/18 10/16/18 06:59 18:59 Intake Total 1450 Balance 1450 - Medications Medications: Current Medications Acetaminophen (Tylenol 325mg Tab) 650 mg PO BID PRN PRN Reason: Anaphylaxis Last Admin: 10/15/18 21:54 Dose: 650 mg Albuterol/Ipratropium (Duoneb 3 Mg/0.5 Mg (3 Ml) Ud) 3 ml INH RQ6 LORIE Last Admin: 10/16/18 01:22 Dose: 3 ml Diphenhydramine HCl (Benadryl) 25 mg PO BID PRN PRN Reason: Anaphylaxis Last Admin: 10/15/18 21:54 Dose: 25 mg Sodium Chloride (Sodium Chloride 0.9%) 1,000 mls @ 75 mls/hr IV .[id number] LORIE Last Admin: 10/15/18 12:00 Dose: 75 mls/hr Lorazepam (Ativan) 1 mg IVP Q4H PRN PRN Reason: Symptoms of alcohol withdrawl Lorazepam (Ativan) 2 mg PO Q4 LORIE; Taper Stop: 10/19/18 18:29 Last Admin: 10/16/18 04:36 Dose: 2 mg Lorazepam (Ativan) 1 mg PO Q4H PRN PRN Reason: Symptoms of alcohol withdrawl Morphine Sulfate (Morphine) 2 mg IVP Q4 PRN PRN Reason: Pain, severe (8-10) Last Admin: 10/14/18 18:44 Dose: 2 mg - Labs Labs: 10/16/18 06:55 10/14/18 15:18 PT 12.7 SECONDS (9.7-12.2) H 10/14/18 15:18 INR 1.2 10/14/18 15:18 APTT 34 SECONDS (21-34) 10/14/18 15:18 - Extremities Exam Additional comments: RLE: moderate thigh swelling +shortened internally rotated limb sensation intact SP/DP/TN motor intact EHL/FHL/TA/G DP/PT pulses intact calves soft NT b/l Assessment and Plan (1) Fracture, intertrochanteric, right femur Assessment & Plan: -MRI findings show ill-defined soft tissue lesion surrounding fracture site with scalloped bone at fracture site suggestive of pathologic fracture -Dr. Fonseca recommends transfer to [facility] for orthopedic oncology care with Dr. Haider Bustamante. -Dr. Haider Bustamante will accept transfer to his service today. He plans for OR tomorrow AM. Contact info for Gay Jorge, -pain control -NWB RLE -DVT ppx -above d/w Dr. Fonseca in agreement Status: Acute Radiology Interpretation - Notes: Notes:: Accession No. : [id number] Patient Name / ID : MOO Porter / [id number] Exam Date : 10/15/2018 13:58:11 ( Approved ) Study Comment : Sex / Age : M / 62Y Creator : Sixto Pugh MD Dictator : Sixto Pugh MD Skoog Machine Operator : Kiln Operator Helper : Sixto Pugh MD Approver2 : Report Date : 10/16/2018 14:04:06 My Comment : MRI right hip History: Prostate cancer. Right hip fracture. Comparison: CT scan dated 10/14/2018 TECHNIQUE: Multi-echo and multiplanar sequences were performed through the right hip without and with the use of intravenous contrast. Findings: In correlation with recent CT scan, there are several small scattered sclerotic metastatic lesions seen throughout the lumbar spine, sacrum, and right iliac bones. Prominent comminuted and distracted intratrochanteric fracture of the right femur. The distal fracture fragment demonstrates approximately 6.4 centimeters superior lateral distraction. Varus angulation at the fracture site. In addition, there is comminution at the level of the greater tuberosity. At the level of the irregular fracture margins, there is intense signal abnormality with prominent increased STIR signal as well as decreased T1 and postcontrast enhancement as demonstrated on series 3, 4, and 9 images 18 through 24. The signal changes are of uncertain etiology. Given the extensive signal abnormality, an underlying lesion and or metastatic lesion cannot be excluded and thus a pathologic fracture cannot be excluded. Alternatively, this may represent the sequelae of posttraumatic change. In addition, superimposed acute inflammatory and or infectious changes cannot be excluded. Clinical correlation. Avascular necrosis at the right femoral head measuring 2 centimeters without gross subchondral flattening. At the level of the resection margins, at the fracture site, there is a large heterogeneous collection which appears enhancing measuring 5.8 x 2.6 x 9.7 centimeters demonstrating heterogeneous T1 signal, heterogeneous STIR signal, and postcontrast enhancement. This may represent a posttraumatic hemorrhagic collection versus seroma versus abscess collection versus additional etiology. Clincal correlation. Extensive edema, hemorrhage, fluid, and increased STIR signal seen throughout the visualized musculature of the right hip. There is associated partial tearing of the musculature at this level with associated myositis. Prominent amount of fluid seen at the level of the right greater trochanteric bursa. Right iliopsoas tendon is grossly preserved. Fraying and irregularity noted at the attachments of the right gluteal tendons on the greater trochanters suggestive for tearing/partial tearing. Thickening of the urinary bladder which may represent a cystitis. Postsurgical changes noted at the level of the left hip with prominent blooming artifact. In addition, there is a suggestion of some possible reactive edema at the left femoral head. Clinical correlation. Reactive edema seen within the lower lumbar spine. Impression: 1. Prominent comminuted and distracted intratrochanteric fracture of the right femur. The distal fracture fragment demonstrates approximately 6.4 centimeters superior lateral distraction. Varus angulation at the fracture site. In addition, there is comminution at the level of the greater tuberosity. At the level of the irregular fracture margins, there is intense signal abnormality with prominent increased STIR signal as well as decreased T1 and postcontrast enhancement as demonstrated on series 3, 4, and 9 images 18 through 24. The signal changes are of uncertain etiology. Given the extensive signal abnormality, an underlying lesion and or metastatic lesion cannot be excluded and thus a pathologic fracture cannot be excluded. Alternatively, this may represent the sequelae of posttraumatic change. In addition, superimposed acute inflammatory and or infectious changes cannot be excluded. Clinical correlation. Avascular necrosis at the right femoral head measuring 2 centimeters without gross subchondral flattening. 2. At the level of the resection margins, at the fracture site, there is a large heterogeneous collection which appears enhancing measuring 5.8 x 2.6 x 9.7 centimeters demonstrating heterogeneous T1 signal, heterogeneous STIR signal, and postcontrast enhancement. This may represent a posttraumatic hemorrhagic collection versus seroma versus abscess collection versus additional etiology. Clinical correlation. 3. Extensive edema, hemorrhage, fluid, and increased STIR signal seen throughout the visualized musculature of the right hip. There is associated partial tearing of the musculature at this level with associated myositis. 4. Prominent amount of fluid seen at the level of the right greater trochanteric bursa. Right iliopsoas tendon is grossly preserved. Fraying and irregularity noted at the attachments of the right gluteal tendons on the greater trochanters suggestive for tearing/partial tearing. 5. Thickening of the urinary bladder which may represent a cystitis. 6. Postsurgical changes noted at the level of the left hip with prominent blooming artifact. In addition, there is a suggestion of some possible reactive edema at the left femoral head. Clinical correlation. 7. Reactive edema seen within the lower lumbar spine. 8. In correlation with recent CT scan, there are several small scattered sclerotic metastatic lesions seen throughout the lumbar spine, sacrum, and right iliac bones. A preliminary report was generated at 5:45 p.m. on 10/15/[address] Adal Hooks from [facility].
--- NOTE | 2018-10-16 08:25 | CON ---
DATE: 10/15/2018 HISTORY OF PRESENT ILLNESS: A 62-year-old male with a history of COPD, admitted to the hospital with a chief complaint of a fall, alcohol intoxication. The patient is found to have in the past on the x-ray. The patient is alcoholic. PHYSICAL EXAMINATION: GENERAL: The patient is awake, alert, oriented. The patient is confused. Opens his eyes, however, responding to verbal questions. VITAL SIGNS: Temperature 98. HEENT: Within normal limits. NECK: Supple. CHEST: Symmetrical. Decreased air entry. HEART: Regular. ABDOMEN: Soft. EXTREMITIES: There is no edema. Decreased external rotation of the right leg. LABORATORY DATA: Chest x-ray COPD, possible bone fracture of ribs. ASSESSMENT AND PLAN: At this point, the patient suffers from chronic obstructive pulmonary disease, altered mental status. The patient is to get bronchodilators, oxygen, deep venous thrombosis prophylaxis, . Frank Odell MD
--- NOTE | 2018-10-16 09:17 | CP.PCM.PN ---
Subjective - Date & Time of Evaluation Date of Evaluation: 10/16/18 Time of Evaluation: 09:14 - Subjective Subjective: no chest pain no sob Medically clear to go for hip surgery Stable cardiac sanchez Objective - Vital Signs/Intake and Output Vital Signs (last 24 hours): Temp Pulse Resp BP Pulse Ox 98.7 F 73 18 154/75 H 99 10/16/18 07:45 10/16/18 07:45 10/16/18 07:45 10/16/18 07:45 10/16/18 07:45 Intake and Output: 10/16/18 10/16/18 06:59 18:59 Intake Total 1450 Balance 1450 - Medications Medications: Current Medications Acetaminophen (Tylenol 325mg Tab) 650 mg PO BID PRN PRN Reason: Anaphylaxis Last Admin: 10/15/18 21:54 Dose: 650 mg Albuterol/Ipratropium (Duoneb 3 Mg/0.5 Mg (3 Ml) Ud) 3 ml INH RQ6 LORIE Last Admin: 10/16/18 08:53 Dose: 3 ml Diphenhydramine HCl (Benadryl) 25 mg PO BID PRN PRN Reason: Anaphylaxis Last Admin: 10/15/18 21:54 Dose: 25 mg Sodium Chloride (Sodium Chloride 0.9%) 1,000 mls @ 75 mls/hr IV .[id number] LORIE Last Admin: 10/15/18 12:00 Dose: 75 mls/hr Lorazepam (Ativan) 1 mg IVP Q4H PRN PRN Reason: Symptoms of alcohol withdrawl Lorazepam (Ativan) 2 mg PO Q4 LORIE; Taper Stop: 10/19/18 18:29 Last Admin: 10/16/18 08:04 Dose: Not Given Lorazepam (Ativan) 1 mg PO Q4H PRN PRN Reason: Symptoms of alcohol withdrawl Morphine Sulfate (Morphine) 2 mg IVP Q4 PRN PRN Reason: Pain, severe (8-10) Last Admin: 10/14/18 18:44 Dose: 2 mg - Labs Labs: 10/16/18 06:55 10/14/18 15:18 PT 12.7 SECONDS (9.7-12.2) H 10/14/18 15:18 INR 1.2 10/14/18 15:18 APTT 34 SECONDS (21-34) 10/14/18 15:18 - Constitutional Appears: Non-toxic - Head Exam Head Exam: NORMAL INSPECTION - Eye Exam Eye Exam: absent: Scleral icterus - Neck Exam Neck Exam: Full ROM - Respiratory Exam Respiratory Exam: NORMAL BREATHING PATTERN - Cardiovascular Exam Cardiovascular Exam: REGULAR RHYTHM - GI/Abdominal Exam GI & Abdominal Exam: Soft - Extremities Exam Extremities Exam: Full ROM. absent: Pedal Edema Additional comments: +Hip fracture Assessment and Plan - Assessment and Plan (Free Text) Assessment: Pt may go for hip surgery with acceptable risk.
[2018-10-16 10:27] LABS: ALB/GLOB RATIO 0.9 (1.0-2.1); ALBUMIN 2.6 g/dL (3.5-5.0); ALT/SGPT 22 U/L (21-72); AST/SGOT 36 U/L (17-59); BLOOD UREA NITROGEN 10 mg/dL (9-20); GFR NON-AFRICAN AMERICAN > 60
--- NOTE | 2018-10-16 11:36 | CP.PCM.DIS ---
<Jeanie Roberts - Last Filed: 10/16/18 16:03> Provider - Provider Date of Admission: 10/14/18 16:31 Attending physician: Derek Villar DO Primary care physician: none Consults: 10/14/18 18:24 Cardiology Consult Routine Comment: Consulting Provider: Gerard Pickens Consulting Physician: Gerard Pickens Reason for Consult: cardiac clearance Physician Consult Routine Comment: Consulting Provider: Frank Odell Consulting Physician: Frank Odell Reason for Consult: History of COPD 10/14/18 20:48 Case Management Referral Routine Comment: Physician Instructions: Reason For Exam: Reason for Referral: Discharge Planning 10/15/18 08:11 Orthopedic Consult Routine Comment: Doctor is already aware. Thank you! Consulting Provider: Kait Moses Consulting Physician: Kait Moses Reason for Consult: Hip Fracture Time Spent in preparation of Discharge (in minutes): 45 Hospital Course - Lab Results Lab Results: Most Recent Lab Values WBC 8.5 K/uL (4.8-10.8) 10/16/18 06:55 RBC 3.06 Mil/uL (4.40-5.90) L 10/16/18 06:55 Hgb 9.8 g/dL (12.0-18.0) L 10/16/18 06:55 Hct 28.1 % (35.0-51.0) L 10/16/18 06:55 MCV 91.8 fL (80.0-94.0) 10/16/18 06:55 MCH 31.9 pg (27.0-31.0) H 10/16/18 06:55 MCHC 34.7 g/dL (33.0-37.0) 10/16/18 06:55 RDW 17.5 % (11.5-14.5) H 10/16/18 06:55 Plt Count 103 K/uL (130-400) L D 10/16/18 06:55 MPV 7.3 fL (7.2-11.7) 10/16/18 06:55 Neut % (Auto) 74.1 % (50.0-75.0) 10/14/18 15:18 Lymph % (Auto) 14.5 % (20.0-40.0) L 10/14/18 15:18 [place] % (Auto) 10.6 % (0.0-10.0) H 10/14/18 15:18 Eos % (Auto) 0.0 % (0.0-4.0) 10/14/18 15:18 Baso % (Auto) 0.8 % (0.0-2.0) 10/14/18 15:18 Neut # (Auto) 4.0 K/uL (1.8-7.0) 10/14/18 15:18 Lymph # (Auto) 0.8 K/uL (1.0-4.3) L 10/14/18 15:18 [place] # (Auto) 0.6 K/uL (0.0-0.8) 10/14/18 15:18 Eos # (Auto) 0.0 K/uL (0.0-0.7) 10/14/18 15:18 Baso # (Auto) 0.0 K/uL (0.0-0.2) 10/14/18 15:18 PT 12.7 SECONDS (9.7-12.2) H 10/14/18 15:18 INR 1.2 10/14/18 15:18 APTT 34 SECONDS (21-34) 10/14/18 15:18 Sodium 135 mmol/L (132-148) 10/16/18 10:00 Potassium 3.5 mmol/L (3.6-5.2) L 10/16/18 10:00 Chloride 107 mmol/L (98-107) 10/16/18 10:00 Carbon Dioxide 21 mmol/L (22-30) L 10/16/18 10:00 Anion Gap 11 (10-20) 10/16/18 10:00 BUN 10 mg/dL (9-20) 10/16/18 10:00 Creatinine 0.7 mg/dL (0.8-1.5) L 10/16/18 10:00 Est GFR ( Amer) > 60 10/16/18 10:00 Est GFR (Non-Af Amer) > 60 10/16/18 10:00 Random Glucose 177 mg/dL (75-110) H D 10/16/18 10:00 Calcium 8.0 mg/dl (8.6-10.4) L 10/16/18 10:00 Phosphorus 3.0 mg/dL (2.5-4.5) 10/16/18 10:00 Magnesium 1.6 mg/dL (1.6-2.3) 10/16/18 10:00 Total Bilirubin 1.5 mg/dL (0.2-1.3) H 10/16/18 10:00 AST 36 U/L (17-59) 10/16/18 10:00 ALT 22 U/L (21-72) 10/16/18 10:00 Alkaline Phosphatase 120 U/L (38-126) 10/16/18 10:00 Ammonia 14 umol/L (9-33) D 10/14/18 20:13 Total Protein 5.4 g/dL (6.3-8.3) L 10/16/18 10:00 Albumin 2.6 g/dL (3.5-5.0) L 10/16/18 10:00 Globulin 2.8 gm/dL (2.2-3.9) 10/16/18 10:00 Albumin/Globulin Ratio 0.9 (1.0-2.1) L 10/16/18 10:00 Triglycerides 56 mg/dL (0-149) 10/14/18 20:13 Cholesterol 114 mg/dL (0-199) 10/14/18 20:13 LDL Cholesterol Direct 81 mg/dL (0-129) 10/14/18 20:13 HDL Cholesterol 38 mg/dL (30-70) 10/14/18 20:13 Amylase 128 U/L (30-110) H 10/14/18 20:13 Lipase 95 U/L (23-300) 10/14/18 20:13 25-OH Vitamin D Total 36.5 NG/ML (30.0-100.0) 10/15/18 11:41 TSH 3rd Generation 0.88 mIU/L (0.46-4.68) 10/14/18 20:13 Urine Color Straw (YELLOW) 10/14/18 19:13 Urine Clarity Clear (Clear) 10/14/18 19:13 Urine pH 6.0 (5.0-8.0) 10/14/18 19:13 Ur Specific [place] 1.002 (1.003-1.030) L 10/14/18 19:13 Urine Protein Negative mg/dL (NEGATIVE) 10/14/18 19:13 Urine Glucose (UA) Normal mg/dL (Normal) 10/14/18 19:13 Urine Ketones Negative mg/dL (NEGATIVE) 10/14/18 19:13 Urine Blood Negative (NEGATIVE) 10/14/18 19:13 Urine Nitrate Negative (NEGATIVE) 10/14/18 19:13 Urine Bilirubin Negative (NEGATIVE) 10/14/18 19:13 Urine Urobilinogen Normal mg/dL (0.2-1.0) 10/14/18 19:13 Ur Leukocyte Esterase Neg [place]/uL (Negative) 10/14/18 19:13 Urine WBC (Auto) < 1 /hpf (0-5) 10/14/18 19:13 Urine RBC (Auto) < 1 /hpf (0-3) 10/14/18 19:13 Urine Opiates Screen Positive (NEGATIVE) H 10/14/18 16:05 Urine Methadone Screen Negative (NEGATIVE) 10/14/18 16:05 Ur Barbiturates Screen Negative (NEGATIVE) 10/14/18 16:05 Ur Phencyclidine Scrn Negative (NEGATIVE) 10/14/18 16:05 Ur Amphetamines Screen Negative (NEGATIVE) 10/14/18 16:05 U Benzodiazepines Scrn Negative (NEGATIVE) 10/14/18 16:05 U Oth Cocaine Metabols Negative (NEGATIVE) 10/14/18 16:05 U Cannabinoids Screen Negative (NEGATIVE) 10/14/18 16:05 Alcohol, Quantitative 171 mg/dl (0-10) H 10/14/18 15:18 Blood Type O POSITIVE 10/14/18 15:18 Antibody Screen Negative 10/14/18 15:18 - Hospital Course Hospital Course: This is a 62-year-old M with PMH of ETOH intoxication, Prostate Ca, BPH, Colon Ca, anemia, COPD, HTN, HLD, s/p mechanical fall and hip fx s/p left hip IM nailing who presents with R hip pain for several days. When asked about history of fall, the Patient shrugs and states "my leg is giving away on me." Patient admits to constant R-sided hip pain localized to the proximal femur region and radiating down to his groin. Patient rates the pain at 9/10 at its worst and states that it is constant. Patient says that he has been drinking about 8 cans of beer daily. Of note, Patient's friend also provided part of the history with the Patient's permission, and the Patient's friend states that he drinks "much more than that." Complete ROS could not be obtained due to Patient's alcohol intoxication. BAL 171 on admission. Patient placed on CIWA and Ativan taper. CT head did not show acute pathology but did demonstrate diffuse atrophy, chronic microvascular ischemic changes, and multiple lacunar infarcts. No seizure activity observed during hospitalization. CT R Hip showed acute fracture proximal femur and sclerotic osseous metastatic disease (as seen on previous). Bone density scan showed multiple sclerotic skeletal metastases and oblique displaced intertrochanteric fracture of the right hip. Ortho was consulted and recommended surgery. Procedure initially planned at [facility], but MRI findings were suggestive of neoplastic bone lesion at fracture site. Therefore, patient requires specific oncologic ortho surgery at a different institution. Cardiology consulted in order to obtain clearance. Echo showed EF 65-70%. Patient's pain treated with morphine. Patient's Hgb dropped to 8.1. He has a known history of anemia. He was transfused pRBC in preparation for surgery. Upon discharge, patient's pain is more tolerable. He is being transferred to [facility] for orthopedic oncology surgery. Discharge Exam - Head Exam Head Exam: ATRAUMATIC, NORMAL INSPECTION - Eye Exam Eye Exam: EOMI, Normal appearance - ENT Exam ENT Exam: Normal Exam - Respiratory Exam Respiratory Exam: Clear to PA & Lateral, NORMAL BREATHING PATTERN, UNREMARKABLE - Cardiovascular Exam Cardiovascular Exam: RRR, +S1, +S2 - GI/Abdominal Exam GI & Abdominal Exam: Soft, Unremarkable. absent: Distended, Tenderness - Extremities Exam Extremities exam: normal capillary refill, tenderness, pedal pulses present Additional comments: b/l UE tremors - Neurological Exam Neurological exam: Alert, Oriented x3 - Psychiatric Exam Psychiatric exam: Flat Affect - Skin Skin Exam: Dry, Normal Color, Warm Discharge Plan - Follow Up Plan Condition: STABLE Disposition: OTHER INSTITUTION Patient education suggested?: Yes Instructions: Femur Fracture (DC), Alcohol Abuse and Alcoholism (DC) Additional Instructions: Transfer to [facility] for ortho surgery. Referrals: Kait Moses MD [Staff Provider] - <Derek Villar - Last Filed: 10/16/18 17:00> Provider - Provider Date of Admission: 10/14/18 16:31 Attending physician: Derek Villar DO Consults: 10/14/18 18:24 Cardiology Consult Routine Comment: Consulting Provider: Gerard Pickens Consulting Physician: Gerard Pickens Reason for Consult: cardiac clearance Physician Consult Routine Comment: Consulting Provider: Frank Odell Consulting Physician: Frank Odell Reason for Consult: History of COPD 10/14/18 20:48 Case Management Referral Routine Comment: Physician Instructions: Reason For Exam: Reason for Referral: Discharge Planning 10/15/18 08:11 Orthopedic Consult Routine Comment: Doctor is already aware. Thank you! Consulting Provider: Kait Moses Consulting Physician: Kait Moses Reason for Consult: Hip Fracture Hospital Course - Lab Results Lab Results: Most Recent Lab Values WBC 8.5 K/uL (4.8-10.8) 10/16/18 06:55 RBC 3.06 Mil/uL (4.40-5.90) L 10/16/18 06:55 Hgb 9.8 g/dL (12.0-18.0) L 10/16/18 06:55 Hct 28.1 % (35.0-51.0) L 10/16/18 06:55 MCV 91.8 fL (80.0-94.0) 10/16/18 06:55 MCH 31.9 pg (27.0-31.0) H 10/16/18 06:55 MCHC 34.7 g/dL (33.0-37.0) 10/16/18 06:55 RDW 17.5 % (11.5-14.5) H 10/16/18 06:55 Plt Count 103 K/uL (130-400) L D 10/16/18 06:55 MPV 7.3 fL (7.2-11.7) 10/16/18 06:55 Neut % (Auto) 74.1 % (50.0-75.0) 10/14/18 15:18 Lymph % (Auto) 14.5 % (20.0-40.0) L 10/14/18 15:18 [place] % (Auto) 10.6 % (0.0-10.0) H 10/14/18 15:18 Eos % (Auto) 0.0 % (0.0-4.0) 10/14/18 15:18 Baso % (Auto) 0.8 % (0.0-2.0) 10/14/18 15:18 Neut # (Auto) 4.0 K/uL (1.8-7.0) 10/14/18 15:18 Lymph # (Auto) 0.8 K/uL (1.0-4.3) L 10/14/18 15:18 [place] # (Auto) 0.6 K/uL (0.0-0.8) 10/14/18 15:18 Eos # (Auto) 0.0 K/uL (0.0-0.7) 10/14/18 15:18 Baso # (Auto) 0.0 K/uL (0.0-0.2) 10/14/18 15:18 PT 12.7 SECONDS (9.7-12.2) H 10/14/18 15:18 INR 1.2 10/14/18 15:18 APTT 34 SECONDS (21-34) 10/14/18 15:18 Sodium 135 mmol/L (132-148) 10/16/18 10:00 Potassium 3.5 mmol/L (3.6-5.2) L 10/16/18 10:00 Chloride 107 mmol/L (98-107) 10/16/18 10:00 Carbon Dioxide 21 mmol/L (22-30) L 10/16/18 10:00 Anion Gap 11 (10-20) 10/16/18 10:00 BUN 10 mg/dL (9-20) 10/16/18 10:00 Creatinine 0.7 mg/dL (0.8-1.5) L 10/16/18 10:00 Est GFR ( Amer) > 60 10/16/18 10:00 Est GFR (Non-Af Amer) > 60 10/16/18 10:00 Random Glucose 177 mg/dL (75-110) H D 10/16/18 10:00 Calcium 8.0 mg/dl (8.6-10.4) L 10/16/18 10:00 Phosphorus 3.0 mg/dL (2.5-4.5) 10/16/18 10:00 Magnesium 1.6 mg/dL (1.6-2.3) 10/16/18 10:00 Total Bilirubin 1.5 mg/dL (0.2-1.3) H 10/16/18 10:00 AST 36 U/L (17-59) 10/16/18 10:00 ALT 22 U/L (21-72) 10/16/18 10:00 Alkaline Phosphatase 120 U/L (38-126) 10/16/18 10:00 Ammonia 14 umol/L (9-33) D 10/14/18 20:13 Total Protein 5.4 g/dL (6.3-8.3) L 10/16/18 10:00 Albumin 2.6 g/dL (3.5-5.0) L 10/16/18 10:00 Globulin 2.8 gm/dL (2.2-3.9) 10/16/18 10:00 Albumin/Globulin Ratio 0.9 (1.0-2.1) L 10/16/18 10:00 Triglycerides 56 mg/dL (0-149) 10/14/18 20:13 Cholesterol 114 mg/dL (0-199) 10/14/18 20:13 LDL Cholesterol Direct 81 mg/dL (0-129) 10/14/18 20:13 HDL Cholesterol 38 mg/dL (30-70) 10/14/18 20:13 Amylase 128 U/L (30-110) H 10/14/18 20:13 Lipase 95 U/L (23-300) 10/14/18 20:13 25-OH Vitamin D Total 36.5 NG/ML (30.0-100.0) 10/15/18 11:41 TSH 3rd Generation 0.88 mIU/L (0.46-4.68) 10/14/18 20:13 Urine Color Straw (YELLOW) 10/14/18 19:13 Urine Clarity Clear (Clear) 10/14/18 19:13 Urine pH 6.0 (5.0-8.0) 10/14/18 19:13 Ur Specific [place] 1.002 (1.003-1.030) L 10/14/18 19:13 Urine Protein Negative mg/dL (NEGATIVE) 10/14/18 19:13 Urine Glucose (UA) Normal mg/dL (Normal) 10/14/18 19:13 Urine Ketones Negative mg/dL (NEGATIVE) 10/14/18 19:13 Urine Blood Negative (NEGATIVE) 10/14/18 19:13 Urine Nitrate Negative (NEGATIVE) 10/14/18 19:13 Urine Bilirubin Negative (NEGATIVE) 10/14/18 19:13 Urine Urobilinogen Normal mg/dL (0.2-1.0) 10/14/18 19:13 Ur Leukocyte Esterase Neg [place]/uL (Negative) 10/14/18 19:13 Urine WBC (Auto) < 1 /hpf (0-5) 10/14/18 19:13 Urine RBC (Auto) < 1 /hpf (0-3) 10/14/18 19:13 Urine Opiates Screen Positive (NEGATIVE) H 10/14/18 16:05 Urine Methadone Screen Negative (NEGATIVE) 10/14/18 16:05 Ur Barbiturates Screen Negative (NEGATIVE) 10/14/18 16:05 Ur Phencyclidine Scrn Negative (NEGATIVE) 10/14/18 16:05 Ur Amphetamines Screen Negative (NEGATIVE) 10/14/18 16:05 U Benzodiazepines Scrn Negative (NEGATIVE) 10/14/18 16:05 U Oth Cocaine Metabols Negative (NEGATIVE) 10/14/18 16:05 U Cannabinoids Screen Negative (NEGATIVE) 10/14/18 16:05 Alcohol, Quantitative 171 mg/dl (0-10) H 10/14/18 15:18 Blood Type O POSITIVE 10/14/18 15:18 Antibody Screen Negative 10/14/18 15:18 Attending/Attestation - Attestation I have personally seen and examined this patient.: Yes I have fully participated in the care of the patient.: Yes I have reviewed all pertinent clinical information, including history, physical exam and plan: Yes Notes (Text): 10/16/18 16:59 Medical attending: Patient was seen and examined by me. Patient was not in any acute distress but was very depressed when we came and spoke with him. He was aware that he is pending transfer to another facility for surgical intervention. Currently on [facility] protocol, he appears stable, not in any withdrawl symptoms when we asked him and no shkaing or tremors on our exam Derek Villar
--- NOTE | 2018-10-16 14:08 | MRI ---
MRI right hip History: Prostate cancer. Right hip fracture. Comparison: CT scan dated 10/14/2018 TECHNIQUE: Multi-echo and multiplanar sequences were performed through the right hip without and with the use of intravenous contrast. Findings: In correlation with recent CT scan, there are several small scattered sclerotic metastatic lesions seen throughout the lumbar spine, sacrum, and right iliac bones. Prominent comminuted and distracted intratrochanteric fracture of the right femur. The distal fracture fragment demonstrates approximately 6.4 centimeters superior lateral distraction. Varus angulation at the fracture site. In addition, there is comminution at the level of the greater tuberosity. At the level of the irregular fracture margins, there is intense signal abnormality with prominent increased STIR signal as well as decreased T1 and postcontrast enhancement as demonstrated on series 3, 4, and 9 images 18 through 24. The signal changes are of uncertain etiology. Given the extensive signal abnormality, an underlying lesion and or metastatic lesion cannot be excluded and thus a pathologic fracture cannot be excluded. Alternatively, this may represent the sequelae of posttraumatic change. In addition, superimposed acute inflammatory and or infectious changes cannot be excluded. Clinical correlation. Avascular necrosis at the right femoral head measuring 2 centimeters without gross subchondral flattening. At the level of the resection margins, at the fracture site, there is a large heterogeneous collection which appears enhancing measuring 5.8 x 2.6 x 9.7 centimeters demonstrating heterogeneous T1 signal, heterogeneous STIR signal, and postcontrast enhancement. This may represent a posttraumatic hemorrhagic collection versus seroma versus abscess collection versus additional etiology. Clincal correlation. Extensive edema, hemorrhage, fluid, and increased STIR signal seen throughout the visualized musculature of the right hip. There is associated partial tearing of the musculature at this level with associated myositis. Prominent amount of fluid seen at the level of the right greater trochanteric bursa. Right iliopsoas tendon is grossly preserved. Fraying and irregularity noted at the attachments of the right gluteal tendons on the greater trochanters suggestive for tearing/partial tearing. Thickening of the urinary bladder which may represent a cystitis. Postsurgical changes noted at the level of the left hip with prominent blooming artifact. In addition, there is a suggestion of some possible reactive edema at the left femoral head. Clinical correlation. Reactive edema seen within the lower lumbar spine. Impression: 1. Prominent comminuted and distracted intratrochanteric fracture of the right femur. The distal fracture fragment demonstrates approximately 6.4 centimeters superior lateral distraction. Varus angulation at the fracture site. In addition, there is comminution at the level of the greater tuberosity. At the level of the irregular fracture margins, there is intense signal abnormality with prominent increased STIR signal as well as decreased T1 and postcontrast enhancement as demonstrated on series 3, 4, and 9 images 18 through 24. The signal changes are of uncertain etiology. Given the extensive signal abnormality, an underlying lesion and or metastatic lesion cannot be excluded and thus a pathologic fracture cannot be excluded. Alternatively, this may represent the sequelae of posttraumatic change. In addition, superimposed acute inflammatory and or infectious changes cannot be excluded. Clinical correlation. Avascular necrosis at the right femoral head measuring 2 centimeters without gross subchondral flattening. 2. At the level of the resection margins, at the fracture site, there is a large heterogeneous collection which appears enhancing measuring 5.8 x 2.6 x 9.7 centimeters demonstrating heterogeneous T1 signal, heterogeneous STIR signal, and postcontrast enhancement. This may represent a posttraumatic hemorrhagic collection versus seroma versus abscess collection versus additional etiology. Clinical correlation. 3. Extensive edema, hemorrhage, fluid, and increased STIR signal seen throughout the visualized musculature of the right hip. There is associated partial tearing of the musculature at this level with associated myositis. 4. Prominent amount of fluid seen at the level of the right greater trochanteric bursa. Right iliopsoas tendon is grossly preserved. Fraying and irregularity noted at the attachments of the right gluteal tendons on the greater trochanters suggestive for tearing/partial tearing. 5. Thickening of the urinary bladder which may represent a cystitis. 6. Postsurgical changes noted at the level of the left hip with prominent blooming artifact. In addition, there is a suggestion of some possible reactive edema at the left femoral head. Clinical correlation. 7. Reactive edema seen within the lower lumbar spine. 8. In correlation with recent CT scan, there are several small scattered sclerotic metastatic lesions seen throughout the lumbar spine, sacrum, and right iliac bones. A preliminary report was generated at 5:45 p.m. on 10/15/[address] Adal Hooks from [employer].
[2018-10-16] MEDS ORDERED: Potassium Chloride 20 mEq ER Tab PO SCH (14:15)
--- NOTE | 2018-10-16 16:02 | CARD ---
APPROVED REPORT Date of service: 10/14/2018 EKG Measurement Heart [id number] <Conclusion> Normal sinus rhythm Prolonged QT Abnormal ECG
--- NOTE | 2018-10-16 16:03 | CARD ---
APPROVED REPORT Date of service: 10/14/2018 EKG Measurement Heart [id number] <Conclusion> Normal sinus rhythm Cannot rule out Anterior infarct, age undetermined Prolonged QT Abnormal ECG
[2018-10-16 16:33] VITALS: BP 152/72; PULSE 110; RESP 20; TEMP 100.2; O2SAT 98
--- NOTE | 2018-10-17 06:19 | PN ---
DATE: 10/16/2018 The patient is complaining of weakness, lethargic, sleeping with . Supportive care, treatment, intravenous fluids, bronchodilator and oxygen. Frank Odell MD
== END 2018-10-16 19:03 | disposition designated cancer center or children's hospital (05) | DRG 536 ==
LOC: C.ER 14:20 → C.9E 16:31 → C.6T 18:11
PROVIDERS: ADMIT Hospitalist; ATTEND Hospitalist
DX: S72.141A Displaced intertrochanteric fracture of right femur, initial encounter for closed fracture (principal); W01.0XXA Fall on same level from slipping, tripping and stumbling without subsequent striking against object, initial encounter; Y90.6 Blood alcohol level of 120-199 mg/100 ml; Z53.09 Procedure and treatment not carried out because of other contraindication; N40.0 Benign prostatic hyperplasia without lower urinary tract symptoms; Z85.46 Personal history of malignant neoplasm of prostate; Z85.038 Personal history of other malignant neoplasm of large intestine; Z87.891 Personal history of nicotine dependence; M16.12 Unilateral primary osteoarthritis, left hip; I10 Essential (primary) hypertension; E78.5 Hyperlipidemia, unspecified; F10.120 Alcohol abuse with intoxication, uncomplicated; K74.60 Unspecified cirrhosis of liver